=== PATIENT | male | born 1945 | race Caucasian/White ===

== ENCOUNTER 2016-07-31 13:34 | Observation (INO) | payer OTHER, MEDICARE ==
--- NOTE | 2016-07-31 13:51 | CPEKG ---
Heart Rate: 81 RR Interval: 741 P-R Interval: 164 QRSD Interval: 76 QT Interval: 396 QTC Interval: 460 P Lyburn: 60 QRS [place]burn: 21 T Wave Lyburn: 43 EKG Severity - OTHERWISE NORMAL ECG - EKG Impression: SINUS RHYTHM EKG Impression: LOW VOLTAGE IN FRONTAL LEADS Electronically Signed By: David Ku 31-Jul-2016 14:09:06
--- NOTE | 2016-07-31 14:05 | EDPHY ---
H & P Time Seen by Provider: 07/31/16 13:40 HPI/ROS: CHIEF COMPLAINT: Syncope HISTORY OF PRESENT ILLNESS: Patient is an alcoholic arrives with his caregiver. He did have alcohol today. He is scheduled for an appointment with [facility] tomorrow to evaluate his liver function. Today he was sitting on a chair in the shower when he had syncope and passed out and was completely unresponsive for 3 minutes and then subsequently minimally responsive for another 5. He was brought in by EMS. He denies chest pain or shortness of breath. No headache or head injury. REVIEW OF SYSTEMS: Eye: no change in vision ENT: no sore throat Cardiac: No chest pain. Pulmonary: no cough or SOB Abdomen: no vomiting, diarrhea, abdominal pain Musculoskeletal: no back pain Skin: Patient is had a diffuse body rash for at least the past several weeks which is diffuse Neuro: no headache Constitutional: no fever : no urinary symptoms A comprehensive 10 point review of systems is otherwise negative aside from elements mentioned in the history of present illness. PAST MEDICAL HISTORY: Alcoholism, foot fracture 2 months ago left-sided Social history: Alcohol today, arrives with caregiver. General Appearance: Alert and conversant, cooperative. Eyes: No scleral icterus. ENT, Mouth: No tongue laceration or abrasion. Respiratory: Normal respiratory effort, breath sounds equal, lungs are clear to auscultation. Cardiovascular: Regular rate and rhythm. Gastrointestinal: Abdomen is soft and non tender. Neurological: Alert and oriented x3. Normally conversant. Face symmetric, normal movement and sensation in all extremities. No asterixis or tremor. Skin: Patient is diffuse skin rash which is erythematous occasional scaling and worse on his back. Dark red in places. Musculoskeletal: No peripheral edema and no joint swelling. Still has pain to palpation of the left foot Psychiatric: Not agitated. Emergency Department course/MDM: Plan for EKG and labs to include troponin. By history unlikely to be seizure. 1455: Results discussed; recommend admission for cardiac monitoring with prolonged duration of syncope today, total duration around 8 minutes per report. Smoking Status: Former smoker Constitutional: Initial Vital Signs Temperature (C) 36.7 C 07/31/16 13:34 Heart Rate 78 07/31/16 13:34 Respiratory Rate 16 07/31/16 13:34 Blood Pressure 110/80 07/31/16 13:34 O2 Sat (%) 96 07/31/16 13:34 O2 Delivery Mode Room Air Allergies/Adverse Reactions: Penicillins Allergy (Verified 07/31/16 13:52) Medical Decision Making - Diagnostics EKG Interpretation: 12-lead EKG interpreted by me; official reading is in trace master. My interpretation is sinus rhythm with low frontal lead voltage. Rate 81. Imaging Results: Imaging Impressions Chest X-Ray 07/31/16 13:47 Impression: 1. No active cardiopulmonary disease seen. 2. Moderate hiatal hernia. 3. Old left rib fractures. Chest x-ray personally interpreted shows hiatal hernia but no other pulmonary abnormalities. Differential Diagnosis: Differential diagnosis considered for syncope including but not limited to vasovagal syncope, arrhythmia, dehydration, and blood loss. Consult/Admit Bed Type: [place] [id number] - Data Points Laboratory Results: Laboratory Results 07/31/16 13:30 07/31/16 13:30 07/31/16 07/31/16 07/31/16 13:30 13:30 13:30 WBC RBC Hgb Hct MCV MCH MCHC RDW Plt Count MPV Neut % (Auto) Lymph % (Auto) [place] % (Auto) Eos % (Auto) Baso % (Auto) Nucleat RBC Rel Count Absolute Neuts (auto) Absolute Lymphs (auto) Absolute Monos (auto) Absolute Eos (auto) Absolute Basos (auto) Absolute Nucleated RBC Immature Gran % Immature Gran # Platelet Estimate Oval Macrocytes Smear Review By PT 14.0 SEC SEC (12.0-15.0) INR 1.09 (0.83-1.16) APTT 30.9 SEC SEC (23.0-38.0) Sodium 138 mEq/L mEq/L (134-144) Potassium 4.3 mEq/L mEq/L (3.5-5.2) Chloride 100 mEq/L mEq/L (97-110) Carbon Dioxide 22 mEq/l mEq/l (22-31) Anion Gap 16 mEq/L mEq/L (8-16) BUN 9 mg/dL mg/dL (7-23) Creatinine 0.8 mg/dL mg/dL (0.7-1.3) Estimated GFR > 60 Glucose 142 mg/dL H mg/dL (70-100) Calcium 8.3 mg/dL L mg/dL (8.5-10.4) Total Bilirubin 0.7 mg/dL mg/dL (0.1-1.4) Conjugated Bilirubin 0.5 mg/dL mg/dL (0.0-0.5) Unconjugated Bilirubin 0.2 mg/dL mg/dL (0.0-1.1) AST 269 IU/L H IU/L (17-59) ALT 123 IU/L H IU/L (21-72) Alkaline Phosphatase 53 IU/L IU/L (38-126) Troponin I < 0.012 ng/mL ng/mL (0-0.034) Total Protein 6.3 g/dL g/dL (6.3-8.2) Albumin 3.6 g/dL g/dL (3.5-5.0) Ethyl Alcohol 198 mg/dL H mg/dL (0-10) 07/31/16 13:30 WBC 4.76 10^3/uL 10^3/uL (3.80-9.50) RBC 3.56 10^6/uL L 10^6/uL (4.40-6.38) Hgb 14.4 g/dL g/dL (13.7-17.5) Hct 42.1 % % (40.0-51.0) MCV 118.3 fL H fL (81.5-99.8) MCH 40.4 pg H pg (27.9-34.1) MCHC 34.2 g/dL g/dL (32.4-36.7) RDW 14.0 % % (11.5-15.2) Plt Count 135 10^3/uL L 10^3/uL (150-400) MPV 9.7 fL fL (8.7-11.7) Neut % (Auto) 44.5 % % (39.3-74.2) Lymph % (Auto) 40.3 % % (15.0-45.0) [place] % (Auto) 12.0 % % (4.5-13.0) Eos % (Auto) 1.1 % % (0.6-7.6) Baso % (Auto) 1.5 % % (0.3-1.7) Nucleat RBC Rel Count 0.4 % H % (0.0-0.2) Absolute Neuts (auto) 2.12 10^3/uL 10^3/uL (1.70-6.50) Absolute Lymphs (auto) 1.92 10^3/uL 10^3/uL (1.00-3.00) Absolute Monos (auto) 0.57 10^3/uL 10^3/uL (0.30-0.80) Absolute Eos (auto) 0.05 10^3/uL 10^3/uL (0.03-0.40) Absolute Basos (auto) 0.07 10^3/uL 10^3/uL (0.02-0.10) Absolute Nucleated RBC 0.02 10^3/uL H 10^3/uL (0-0.01) Immature Gran % 0.6 % % (0.0-1.1) Immature Gran # 0.03 10^3/uL 10^3/uL (0.00-0.10) Platelet Estimate DECREASED L (ADEQ) Oval Macrocytes 3+ H Smear Review By Pending PT INR APTT Sodium Potassium Chloride Carbon Dioxide Anion Gap BUN Creatinine Estimated GFR Glucose Calcium Total Bilirubin Conjugated Bilirubin Unconjugated Bilirubin AST ALT Alkaline Phosphatase Troponin I Total Protein Albumin Ethyl Alcohol Departure - Dep[facility]ure [facility] Clinical Impression: Syncope Qualifiers: Syncope type: unspecified Qualified Code(s): R55 - Syncope and collapse Condition: Good
[2016-07-31 14:26] LABS: % IMMATURE GRANULYOCYTES 0.6 % (0.0-1.1); ABSOLUTE IMMATURE GRANULOCYTES 0.03 10^3/uL (0.00-0.10); ABSOLUTE NRBC COUNT 0.02 10^3/uL (0-0.01); ADD DIFF? NO; ADD MORPH? YES; ADD SCAN? NO; ATYPICAL LYMPHOCYTE FLAG 20 (0-99); FRAGMENT RBC FLAG 0 (0-99); HEMATOCRIT 42.1 % (40.0-51.0); HEMOGLOBIN 14.4 g/dL (13.7-17.5); LEFT SHIFT FLG 0 (0-99); LIPEMIA HEMOLYSIS FLAG 90 (0-99); MEAN CELL HEMOGLOBIN 40.4 pg (27.9-34.1); MEAN CELL HEMOGLOBIN CONCENTR. 34.2 g/dL (32.4-36.7); MEAN PLATELET VOLUME 9.7 fL (8.7-11.7); NRBC-AUTO% 0.4 % (0.0-0.2); PLATELET CLUMPS FLAG 0 (0-99); PLATELET COUNT 135 10^3/uL (150-400); RED BLOOD CELL COUNT 3.56 10^6/uL (4.40-6.38)
[2016-07-31 14:28] LABS: APTT 30.9 SEC (23.0-38.0); INR 1.09 (0.83-1.16)
[2016-07-31 14:29] LABS: MEAN CELL VOLUME 118.3 fL (81.5-99.8)
[2016-07-31 14:43] LABS: ALANINE AMINOTRANSFERASE 123 IU/L (21-72); ALBUMIN 3.6 g/dL (3.5-5.0); ALKALINE PHOSPHATASE 53 IU/L (38-126); ANION GAP 16 mEq/L (8-16); ASPARTATE AMINOTRANSFERASE 269 IU/L (17-59); BILIRUBIN,TOTAL 0.7 mg/dL (0.1-1.4); BILIRUBIN-CONJUGATED 0.5 mg/dL (0.0-0.5); BILIRUBIN-UNCONJUGATED 0.2 mg/dL (0.0-1.1); CALCIUM 8.3 mg/dL (8.5-10.4); CARBON DIOXIDE 22 mEq/l (22-31); CHLORIDE 100 mEq/L (97-110); CREATININE 0.8 mg/dL (0.7-1.3); GLOMERULAR FILTRATION RATE > 60; GLUCOSE 142 mg/dL (70-100); POTASSIUM 4.3 mEq/L (3.5-5.2); SODIUM 138 mEq/L (134-144); TOTAL PROTEIN 6.3 g/dL (6.3-8.2)
[2016-07-31 14:54] LABS: TROPONIN I < 0.012 ng/mL (0-0.034)
[2016-07-31 15:15] LABS: MACROCYTES 3+; PLATELET ESTIMATE DECREASED (ADEQ)
[2016-07-31 15:36] LABS: ETHANOL SERUM 198 mg/dL (0-10)
[2016-07-31] MEDS ORDERED: LOPERAMIDE HCL 2 MG CAP PO PRN (18:02)
[2016-07-31] MEDS ORDERED: ACETAMINOPHEN 325 MG TAB PO PRN (18:03)
[2016-07-31] MEDS ORDERED: ONDANSETRON DISINTEGRATING 4 MG TAB PO PRN (18:03)
[2016-07-31] MEDS ORDERED: ONDANSETRON 4 MG/2 ML VIAL IVP PRN (18:03)
[2016-07-31] MEDS ORDERED: NS 1,000 ML IV SCH (18:45)
[2016-07-31] MEDS ORDERED: WHITE WINE 120 ML BOTTLE PO PRN (18:48)
--- NOTE | 2016-07-31 19:39 | GHP ---
[f rep st] HISTORY AND PHYSICAL DATE OF ADMISSION: 07/31/2016 CHIEF COMPLAINT: Syncope. HISTORY OF PRESENT ILLNESS: The patient is a 71-year-old male with a history of alcohol abuse and a foot fracture recently, who was brought to [facility] by his niece after he passed out this morning. He was sitting on a chair in the shower this morning being bathed by his occupational therapist and she called out to his niece, Emma, when he passed out 3 minutes. He was slumped over and nonresponsive. He was groggy when awoke and pulse "thready" per niece. He does not recall event and denies prodromal symptoms, including chest pain, shortness of breath, nausea, vomiting, dizziness or clamminess. He has intermittent diarrhea that has been chronic for several months. Denies dysuria. He was scheduled for appt at [facility] tomorrow. REVIEW OF SYSTEMS: I completed a 10-point review of systems, negative, except as noted in the HPI. PAST MEDICAL HISTORY: Alcohol abuse, recent foot fracture 2 months ago. PAST SURGICAL HISTORY: Tonsillectomy. SOCIAL HISTORY: He lives in [place]. His niece is his caregiver. He quit cigarettes 7 years ago. Drinks 6-7 glasses of wine a day. Last drink was this morning. FAMILY HISTORY: Father at age 84. Mother was healthy, lived greater than 100. MEDICATIONS: P.r.n. Imodium. ALLERGIES: No known drug allergies. PHYSICAL EXAMINATION: VITAL SIGNS: Temperature 36.9, blood pressure 116/71, heart rate 87, respirations 16, 98% on room air. GENERAL: The patient is sleeping in bed, in no acute distress. HEENT: PERRLA. EOMI. Small ulcerations on tongue. CV: Is regular rate and rhythm. No murmurs, gallops, or rubs. LUNGS: Clear to auscultation bilaterally. ABDOMEN: Soft, nontender , nondistended. Positive bowel sounds. : No [place]. No suprapubic tenderness. MUSCULOSKELETAL: 5/5 upper and lower extremity strength. NEURO: 2 through 12 intact. Mild hand tremor. No tongue fasciculations. SKIN: Diffuse macular rash over trunk and extremities. Some scaling lesions more specifically over the back. No evidence of purulence or cellulitis. LABS: WBC 4, hemoglobin 14, hematocrit 42, platelets 135. INR is 1.0, PT is 14. Sodium 138, potassium 4.3, chloride 100, carbon dioxide 22, creatinine 0.8 , glucose 142, calcium 8.3. AST 269, ALT 123. Troponin less than 0.012. Albumin is 3.6. BAL is 198. IMAGING: EKG is personally reviewed by me. Low voltage in anterior leads. No ST elevation or depression. Chest x-ray is personally reviewed by me. No effusion or opacity. Chronic rib fractures. ASSESSMENT AND PLAN: 1. Syncope. Differential includes dehydration, ACS, intoxication. Initial EKG and troponin are negative for ischemia. No evidence of arrhythmia. I will repeat both troponin and EKG. Query if alcohol contributed. The patient denied any prodromal symptoms. Will monitor on telemetry overnight. Check an echocardiogram. 2. Alcohol abuse. drinks at least 6 glasses of wine daily. I counseled him on cessation. CIWA. 3. Thrombocytopenia, mild, likely secondary to chronic alcohol abuse. 4. Transaminitis. This is likely secondary to alcohol. 5. Diffuse skin rash: present for several months. Does not appear infectious. Query cryoglobulinemia. Will check hep serologies. Trial steroid cream. 6. Diet regular. 7. Deep venous thrombosis prophylaxis: Lovenox. DISPOSITION: The patient warrants observation admission given syncopal episode and warranting telemetry and echocardiogram. /[id number]/MODL MTDD
[2016-07-31] MEDS ORDERED: LORazepam 1 MG TAB PO PRN (22:01)
[2016-07-31] MEDS ORDERED: LORazepam 2 MG/ML INJ IVP PRN (22:01)
[2016-07-31] MEDS: HYDROCORTISONE 1% CREAM TP SCH (22:48)
[2016-08-01 03:35] VITALS: O2SAT 95
[2016-08-01 05:32] LABS: ADD DIFF? YES; ADD MORPH? NO; ADD SCAN? NO; ATYPICAL LYMPHOCYTE FLAG 0 (0-99); FRAGMENT RBC FLAG 0 (0-99); HEMATOCRIT 32.9 % (40.0-51.0); HEMOGLOBIN 11.5 g/dL (13.7-17.5); LEFT SHIFT FLG 0 (0-99); LIPEMIA HEMOLYSIS FLAG 90 (0-99); MEAN CELL HEMOGLOBIN 40.1 pg (27.9-34.1); MEAN CELL VOLUME 114.6 fL (81.5-99.8); MEAN PLATELET VOLUME 9.4 fL (8.7-11.7); PLATELET CLUMPS FLAG 10 (0-99); PLATELET COUNT 95 10^3/uL (150-400); RED BLOOD CELL COUNT 2.87 10^6/uL (4.40-6.38); RED CELL DISTRIBUTION WIDTH 13.7 % (11.5-15.2)
[2016-08-01 05:52] LABS: ALANINE AMINOTRANSFERASE 93 IU/L (21-72); ALBUMIN 2.7 g/dL (3.5-5.0); ALKALINE PHOSPHATASE 47 IU/L (38-126); ANION GAP 6 mEq/L (8-16); ASPARTATE AMINOTRANSFERASE 147 IU/L (17-59); BILIRUBIN,TOTAL 0.9 mg/dL (0.1-1.4); CALCIUM 8.2 mg/dL (8.5-10.4); CARBON DIOXIDE 26 mEq/l (22-31); CHLORIDE 101 mEq/L (97-110); CREATININE 0.7 mg/dL (0.7-1.3); GLOMERULAR FILTRATION RATE > 60; GLUCOSE 88 mg/dL (70-100); MAGNESIUM 1.7 mg/dL (1.6-2.3); POTASSIUM 4.5 mEq/L (3.5-5.2); SODIUM 133 mEq/L (134-144); TOTAL PROTEIN 4.9 g/dL (6.3-8.2)
[2016-08-01 06:22] LABS: PLATELET ESTIMATE DECREASED (ADEQ)
[2016-08-01 06:27] LABS: HYPOCHROMIA 2+; MACROCYTES 3+
[2016-08-01 08:00] VITALS: BP 131/88; PULSE 73; RESP 18; TEMP 98.8
[2016-08-01] MEDS ORDERED: ENOXAPARIN 40 MG/0.4 ML SYR SC SCH (09:00)
[2016-08-01] MEDS ORDERED: THIAMINE HCL 100 MG TAB PO SCH (09:00)
[2016-08-01] MEDS: HYDROCORTISONE 1% CREAM TP SCH (09:04)
--- NOTE | 2016-08-01 09:38 | ECHO ---
[id number] + + [address] : : [place] [address] : : [phone] + Adult Echocardiographic Report + --+ :Name: MELODY CASTILLO LStudy Date: 08/01/2016 07:34 AM : : Hospital Admission Number: [id number] Location: 3 61: :: 1945 Gender: Male Height: 171 in : :Age: 71 yrs Race: WH : :Reason For Study: Syncope/eval for valve abnormality : + --+ MMode/2D Measurements \T\ Calculations IVSd: 0.86 cm LVIDd: 4.5 cm FS: 30.5 % Ao root diam: LVPWd: 1.2 cm LVIDs: 3.1 cm EDV(Teich): 3.7 cm 90.1 ml LA dimension: ESV(Teich): 3.3 cm 37.7 ml EF(Teich): 58.2 % LVLd ap4: 7.8 cm SV(MOD-sp4): EDV(MOD-sp4): 45.0 ml 64.0 ml LVLs ap4: 7.0 cm ESV(MOD-sp4): 19.0 ml EF(MOD-sp4): 70.3 % Normal Measurement Values: + + :LVIDd (3.5-5.7cm) IVSd (0.6-1.1cm) LVPWd (0.6-1.1cm) Aortic Root (2.0-3.7cm)Left Atrium (1.5-4.0cm): :LV Vol(d) (76-115ml) LV Vol(s) (29-48ml) Ejec Fraction (50-65%)PV Rashi (0.6- 1.2m/s) TV Rashi (0.4-1.0m/s) : :MV E Rashi (0.8-1.0m/s)MV A Rashi (0.3-1.0m/s)LVOT Rashi (0.7-1.2m/s) Asc Ao Rashi ( 0.9-1.8m/s) : + + Doppler Measurements \T\ Calculations MV E max rashi: 108.1 cm/sec Ao V2 max: 95.0 cm/sec MV A max rashi: 81.4 cm/sec Ao max P.6 mmHg MV E/A: 1.3 Left Ventricle The left ventricle is normal in size. There is normal left ventricular wall thickness. Left ventricular systolic function is normal. Ejection Fraction = 65-70%. Moderate diastolic dysfunction with elevated LV filling pressures. No regional wall motion abnormalities noted. Right Ventricle The right ventricle is normal in size and function. Atria The left atrial size is normal. Right atrial size is normal. The interatrial septum is intact with no evidence for an atrial septal defect. Mitral Valve The mitral valve is normal in structure and function. There is no evidence of mitral valve prolapse. There is no mitral valve stenosis. There is trace mitral regurgitation. Tricuspid Valve Normal tricuspid valve. There is trace tricuspid regurgitation. Aortic Valve The aortic valve is trileaflet. The aortic valve opens well. There is no aortic stenosis. There is no aortic insufficiency. Pulmonic Valve The pulmonic valve is normal in structure and function. Mild pulmonic valvular regurgitation. Great Vessels The aortic root is normal size. Pericardium/Pleural There is no pericardial effusion. There is a fat pad seen. Conclusion A complete two-dimensional transthoracic echocardiogram was performed (2D, M-mode, Doppler and color flow Doppler). Left ventricular systolic function is normal. Ejection Fraction = 65-70%. There is trace mitral regurgitation. There is trace tricuspid regurgitation. Mild pulmonic valvular regurgitation. There is a fat pad seen. No prior echo Final Reading Physician: Dr Marycruz Hanna electronically signed on 08/01/2016 09:37 AM Ordering Physician: Colleen Pelayo Performed By: Marcelina Garcia RDCS
--- NOTE | 2016-08-01 15:56 | GDS ---
[f rep st] DISCHARGE SUMMARY DISCHARGE DIAGNOSES: 1. Syncope, likely due to alcohol intoxication, without evidence for arrhythmia. 2. Alcohol abuse. 3. Thrombocytopenia. 4. Alcoholic hepatitis. 5. Chronic diarrhea. 6. Bilateral thigh rash. CONSULTANTS: None. HOSPITAL COURSE AND STAY BY PROBLEM: Syncope: The patient was monitored on telemetry on 3 , w here he was not noted to have any arrhythmias. On the day of discharge, he tells me he feels better and has not had any further syncopal episodes. Prior to discharge, I discussed the case with CATRACHO Casey, from [facility]. Cardiology plans to get the patient set up for an outpatient event monitor. The patient presented with a blood alcohol level of 198, which could have very possi tj contributed to his syncopal episode. PHYSICAL EXAM: VITAL SIGNS: On day of discharge, blood pressure 131/88, pulse 73, respiratory rate 18, O2 saturation 95% on room air. Temperature afebrile. GENERAL: No acute distress. HEART: S1 , S2. LUNGS: Clear. ABDOMEN: Soft. EXTREMITIES: No edema. PERTINENT LABS AND STUDIES: Echocardiogram done 07/31/2016: Ejection fraction was 65% to 70% with no significant valvular disease. Refer to report for details. DISCHARGE MEDICATIONS: Please refer to discharge medication reconciliation in [facility] for details. DISCHARGE INSTRUCTIONS: The patient will be discharged from the hospital. He was given a prescript ion for hydrocortisone cream to see if this helps with his rash. He plans to follow up with a derma tologist as well as with a funeral location manager due to his diarrhea and rash. Hepatitis B serologies are currently pending, which will need to be followed up. Once again, the patient has also been ord ered to have outpatient event monitor. /[id number]/MODL
[2016-08-02 13:12] LABS: HEPATITIS Bs Ab QUANT 911 mIU/mL
== END 2016-08-01 10:26 | disposition home or self-care (01) ==
LOC: EDUNIT# → EDBD → F3N 16:51
PROVIDERS: ADMIT Internal Medicine; ATTEND Family Medicine
DX: R55 Syncope and collapse (principal); F10.220 Alcohol dependence with intoxication, uncomplicated; K70.10 Alcoholic hepatitis without ascites; K44.9 Diaphragmatic hernia without obstruction or gangrene; K52.9 Noninfective gastroenteritis and colitis, unspecified; D69.6 Thrombocytopenia, unspecified; R21 Rash and other nonspecific skin eruption; Y90.9 Presence of alcohol in blood, level not specified; Z87.81 Personal history of (healed) traumatic fracture; Z87.891 Personal history of nicotine dependence
CPT/HCPCS: 71020; 93005; 93306; 99285; G0378; J2060; G0472; G0480

== ENCOUNTER 2017-02-16 13:04 | Inpatient (IN) | payer OTHER, MEDICARE ==
--- NOTE | 2017-02-16 13:40 | EDPHY ---
H & P Time Seen by Provider: 02/16/17 13:21 HPI/ROS: CHIEF COMPLAINT: Generalized weakness HISTORY OF PRESENT ILLNESS: 71-year-old man is brought in by his knees Emma. Apparently he still lives independently continues to drink lots of white wine. He has been getting weaker and having decreased oral intake and he went to his primary care physician's office this Friday and they agreed that he would be admitted for 3 days and then placed in a long-term or rehab facility. He presents today because of this plan. Generally he is weak and has difficulty walking or standing. Not focal and not associated with headache or specific extremity deficit. Associated with at least 2-3 weeks of diarrhea which is not melena or bloody. Weakness is not better worse with anything. It is also associated with decreased oral intake and continued alcohol ingestion. REVIEW OF SYSTEMS: Eye: no change in vision ENT: no sore throat Cardiac: no chest pain or syncope Pulmonary: no cough or SOB Abdomen: No abdominal pain or vomiting Musculoskeletal: no back pain Skin: Sacral and perirectal rash Neuro: no headache Constitutional: no fever : no urinary symptoms A comprehensive 10 point review of systems is otherwise negative aside from elements mentioned in the history of present illness. PAST MEDICAL HISTORY: Includes alcoholism, left foot fracture which was refractured 3 months ago, tonsillectomy Social history: Lives independently, here with his niece, recent alcohol. His niece Emma is able to give substantial extra history. General Appearance: Alert and conversant, cooperative. Eyes: No scleral icterus. ENT, Mouth: Slightly dry mucous membranes Respiratory: Normal respiratory effort, breath sounds equal, lungs are clear to auscultation. Cardiovascular: Regular rate and rhythm. Tachycardic Gastrointestinal: Abdomen is soft and non tender. Neurological: Alert and oriented x3. Normally conversant. Moves all 4 extremities but just generally weak. Can not walk or stand without assistance. NO asterixis. Skin: Beginnings of a sacral decubitus but no cellulitis. Musculoskeletal: No peripheral edema and no joint swelling. Psychiatric: Not agitated. Emergency Department course/MDM: Patient presents with blood pressure 78/62 and heart rate 125. I think this is more likely to be from volume depletion then sepsis or systemic infection. Plan for EKG, labs, stool testing, D-dimer given his recent prolonged immobilization in a boot from his left foot fracture this past spring. 1427: D-dimer noted slightly elevated but repeat blood pressure 120/76 and heart rate 94. No chest pain or shortness of breath. No calf tenderness. I think that dehydration is much more likely to be a cause for the patient's abnormal vital signs than thromboembolism. Admission for hydration, further evaluation. Specifically I do not suspect acute infection or sepsis as the cause for the patient's symptoms. 1436: Rashi will admit. Smoking Status: Former smoker Constitutional: Initial Vital Signs Temperature (C) 36.5 C 02/16/17 13:14 Heart Rate 125 H 02/16/17 13:14 Respiratory Rate 16 02/16/17 13:14 Blood Pressure 78/62 L 02/16/17 13:14 O2 Sat (%) 95 02/16/17 13:14 O2 Delivery Mode Room Air Allergies/Adverse Reactions: Penicillins Allergy (Verified 07/31/16 13:52) Home Medications: Medication Instructions Recorded Loperamide HCl [Imodium 2 mg (*)] 2 mg PO DAILY PRN 02/16/17 Naproxen Sodium [Aleve 220 MG (*)] 440 mg PO DAILY PRN 02/16/17 Nystatin [Mycostatin Cream (RX)] 1 siddharth TP PRN PRN 02/16/17 Medical Decision Making - Diagnostics EKG Interpretation: 12-lead EKG interpreted by me; official reading is in trace master. My interpretation is sinus rhythm rate 90, low voltage, no ischemic changes. Differential Diagnosis: Differential for weakness considered including but not limited to dehydration, dysrhythmia, metabolic abnormality, malnutrition, thromboembolism. - Data Points Laboratory Results: Laboratory Results 02/16/17 13:30 02/16/17 13:30 02/16/17 02/16/17 02/16/17 13:30 13:30 13:30 WBC 7.74 10^3/uL 10^3/uL (3.80-9.50) RBC 3.04 10^6/uL L 10^6/uL (4.40-6.38) Hgb 12.3 g/dL L g/dL (13.7-17.5) Hct 34.8 % L % (40.0-51.0) MCV 114.5 fL H fL (81.5-99.8) MCH 40.5 pg H pg (27.9-34.1) MCHC 35.3 g/dL g/dL (32.4-36.7) RDW 12.9 % % (11.5-15.2) Plt Count 185 10^3/uL 10^3/uL (150-400) MPV 8.9 fL fL (8.7-11.7) Neut % (Auto) 71.4 % % (39.3-74.2) Lymph % (Auto) 15.5 % % (15.0-45.0) [place] % (Auto) 11.9 % % (4.5-13.0) Eos % (Auto) 0.4 % L % (0.6-7.6) Baso % (Auto) 0.5 % % (0.3-1.7) Nucleat RBC Rel Count 0.0 % % (0.0-0.2) Absolute Neuts (auto) 5.53 10^3/uL 10^3/uL (1.70-6.50) Absolute Lymphs (auto) 1.20 10^3/uL 10^3/uL (1.00-3.00) Absolute Monos (auto) 0.92 10^3/uL H 10^3/uL (0.30-0.80) Absolute Eos (auto) 0.03 10^3/uL 10^3/uL (0.03-0.40) Absolute Basos (auto) 0.04 10^3/uL 10^3/uL (0.02-0.10) Absolute Nucleated RBC 0.00 10^3/uL 10^3/uL (0-0.01) Immature Gran % 0.3 % % (0.0-1.1) Immature Gran # 0.02 10^3/uL 10^3/uL (0.00-0.10) D-Dimer 0.93 ug/mLFEU H ug/mLFEU (0.00-0.50) Sodium 133 mEq/L L mEq/L (134-144) Potassium 3.8 mEq/L mEq/L (3.5-5.2) Chloride 103 mEq/L mEq/L (97-110) Carbon Dioxide 16 mEq/l L mEq/l (22-31) Anion Gap 14 mEq/L mEq/L (8-16) BUN 11 mg/dL mg/dL (7-23) Creatinine 0.8 mg/dL mg/dL (0.7-1.3) Estimated GFR > 60 Glucose 100 mg/dL mg/dL (70-100) Calcium 8.3 mg/dL L mg/dL (8.5-10.4) Total Bilirubin 0.5 mg/dL mg/dL (0.1-1.4) Conjugated Bilirubin 0.1 mg/dL mg/dL (0.0-0.5) Unconjugated Bilirubin 0.4 mg/dL mg/dL (0.0-1.1) AST 50 IU/L IU/L (17-59) ALT 36 IU/L IU/L (21-72) Alkaline Phosphatase 80 IU/L IU/L (38-126) Total Protein 5.3 g/dL L g/dL (6.3-8.2) Albumin 2.7 g/dL L g/dL (3.5-5.0) Ethyl Alcohol 17 mg/dL H mg/dL (0-10) Departure - Departure Disposition: [facility] Inpatient Acute Clinical Impression: Weakness, Dehydration Condition: Fair
[2017-02-16 13:44] LABS: % IMMATURE GRANULYOCYTES 0.3 % (0.0-1.1); ABSOLUTE IMMATURE GRANULOCYTES 0.02 10^3/uL (0.00-0.10); ADD DIFF? NO; ADD MORPH? NO; ADD SCAN? NO; ATYPICAL LYMPHOCYTE FLAG 10 (0-99); FRAGMENT RBC FLAG 0 (0-99); HEMATOCRIT 34.8 % (40.0-51.0); HEMOGLOBIN 12.3 g/dL (13.7-17.5); LEFT SHIFT FLG 0 (0-99); LIPEMIA HEMOLYSIS FLAG 90 (0-99); MEAN CELL HEMOGLOBIN 40.5 pg (27.9-34.1); MEAN CELL HEMOGLOBIN CONCENTR. 35.3 g/dL (32.4-36.7); MEAN CELL VOLUME 114.5 fL (81.5-99.8); MEAN PLATELET VOLUME 8.9 fL (8.7-11.7); PLATELET CLUMPS FLAG 0 (0-99); PLATELET COUNT 185 10^3/uL (150-400); RED BLOOD CELL COUNT 3.04 10^6/uL (4.40-6.38); RED CELL DISTRIBUTION WIDTH 12.9 % (11.5-15.2)
[2017-02-16 14:12] LABS: ALANINE AMINOTRANSFERASE 36 IU/L (21-72); ALBUMIN 2.7 g/dL (3.5-5.0); ALKALINE PHOSPHATASE 80 IU/L (38-126); ANION GAP 14 mEq/L (8-16); ASPARTATE AMINOTRANSFERASE 50 IU/L (17-59); BILIRUBIN,TOTAL 0.5 mg/dL (0.1-1.4); BILIRUBIN-CONJUGATED 0.1 mg/dL (0.0-0.5); BILIRUBIN-UNCONJUGATED 0.4 mg/dL (0.0-1.1); CALCIUM 8.3 mg/dL (8.5-10.4); CARBON DIOXIDE 16 mEq/l (22-31); CHLORIDE 103 mEq/L (97-110); CREATININE 0.8 mg/dL (0.7-1.3); ETHANOL SERUM 17 mg/dL (0-10); GLOMERULAR FILTRATION RATE > 60; GLUCOSE 100 mg/dL (70-100); POTASSIUM 3.8 mEq/L (3.5-5.2); SODIUM 133 mEq/L (134-144); TOTAL PROTEIN 5.3 g/dL (6.3-8.2)
--- NOTE | 2017-02-16 14:24 | CPEKG ---
Heart Rate: 89 RR Interval: 674 P-R Interval: 160 QRSD Interval: 78 QT Interval: 380 QTC Interval: 463 P [place]: 50 QRS [place]: 16 T Wave [place]: 34 EKG Severity - OTHERWISE NORMAL ECG - EKG Impression: SINUS RHYTHM EKG Impression: LOW VOLTAGE IN FRONTAL LEADS Electronically Signed By: David Ku 16-Feb-2017 14:28:19
--- NOTE | 2017-02-16 14:36 | ASMTCMCOM ---
CM Note CM Note Notes: Patient prefers to go by "Watson." Patient admitted for weakness, diarrhea x3 weeks, and overall decreased ability to care for himself including transferring into wheelchair or perform other ADLs. Patient brought into the ED by his niece, Emma, who is at bedside. Patient saw his PCP Dr. Addie Zamora this last week. Patient lives alone in a 1st floor apartment (has one step up to his front door) and has been using a wheelchair since he initially fractured his left foot last May 2016 and re-fractured it around October 2016. Patient also wears a walking boot on his left foot. Per Emma, patient normally wears depends and is unable to clean or bathe himself. Patient is an alcoholic and per Emma was drinking up to 60-70fl oz of white wine daily until about 3 weeks ago when he couldn't get it himself, so since then he has been drinking about 35 fl oz of white wine daily. Patient was admitted last 07/31/16 for syncopal episode and was discharged with PT/OT homecare services through [facility]. Pt also has worn a Holter monitor but never followed up with a marketing program manager. Patient also has been seen by a doctor at [facility] but can't remember the doctor's name. Exact DC needs unknown at this time, although per patient and Emma they would be open to the idea of a short term rehab placement in order for patient to regain strength. CM to follow. Date Signed: 02/16/2017 02:36 PM Electronically Signed By:Isabell Castillo RN
[2017-02-16] MEDS ORDERED: PROMETHAZINE HCL 25 MG/ML INJ IVP PRN (14:38)
[2017-02-16] MEDS ORDERED: ONDANSETRON DISINTEGRATING 4 MG TAB PO PRN (14:38)
[2017-02-16] MEDS ORDERED: ONDANSETRON 4 MG/2 ML VIAL IVP PRN (14:38)
[2017-02-16] MEDS ORDERED: PROMETHAZINE HCL 25 MG TAB PO PRN (14:38)
[2017-02-16] MEDS ORDERED: LORazepam 1 MG TAB PO PRN (14:40)
[2017-02-16] MEDS ORDERED: LORazepam 2 MG/ML INJ IVP PRN (14:40)
[2017-02-16] MEDS ORDERED: NYSTATIN 15 GM CR TUBE TP PRN (14:52)
[2017-02-16] MEDS ORDERED: NAPROXEN SODIUM 220 MG TAB PO PRN (14:52)
[2017-02-16] MEDS ORDERED: LOPERAMIDE HCL 2 MG CAP PO PRN (14:52)
--- NOTE | 2017-02-16 15:28 | PDGENHP ---
History and Physical - Chief Complaint Acute paresis - History of Present Illness PCP: Dr. Addie Zamora HPI: 71-year-old male presenting with acute paresis characterized as bilateral lower extremity weakness rendering him unable to get out of bed or chair, with onset of symptoms approximately 3-4 weeks ago and duration persistent and worsening thereafter. This has been associated with loose, watery, pink colored bowel movements which have occurred on a daily basis during the interval as well. The patient's niece who is his primary farm technician reports that he is unable to mobilize himself from bed to wheelchair, and prior to the onset of the symptoms, the patient had been performing transfers from bed to wheelchair and then back fairly independently. Patient otherwise denies any upper extremity paresis, denies any infectious symptoms, and denies any back pain or recent back trauma. He does report urinary incontinence which has been present for at least 1 year. The symptoms occurred in the context of the patient being moved from his home in [place] to an apartment next door to his niece, so she is able to better care for him. That move occurred in May of 2016. The niece reports that she checks in on him on a daily basis, provide him with 1 full meal daily, the patient rarely eats any significant amount of the solid food that she brings him , preferring to drink mostly wine and Ensure as his only caloric intake. She has not noted any falls in his home, but she has noted a sacral pressure injury. She brought him to his primary care provider's office this past Friday, and Dr. Zamora recommended nursing home facility placement. History Information - Allergies/Home Medication List Allergies/Adverse Reactions: Penicillins Allergy (Verified 07/31/16 13:52) Home Medications: Loperamide HCl [Imodium 2 mg (*)] 2 mg PO DAILY PRN 02/16/17 [Last Taken Unknown ] Naproxen Sodium [Aleve 220 MG (*)] 440 mg PO DAILY PRN 02/16/17 [Last Taken Unknown] Nystatin [Mycostatin Cream (RX)] 1 siddharth TP PRN PRN 02/16/17 [Last Taken 02/16/17] I have personally reviewed and updated: family history, medical history, social history, surgical history - Past Medical History Additional medical history: Alcoholism. Foot fracture. Sacral decubitus ulcer. Chronic hyponatremia with baseline serum sodium level between 130 and 133 - Surgical History Additional surgical history: Tonsillectomy. Colonoscopy approximately 3-4 years ago, told that he needed 5 year follow-up - Family History Additional family history: Family history of neuro degenerative disorders, father at age 84, his mother age 100 - Social History Smoking Status: Former smoker Alcohol Use: Heavy (The patient drinks significant amount of 1 on a daily basis , he reports he has been doing so for a significant amount of time, he denies ever experiencing acute alcohol withdrawal or withdrawal seizures but he does note that he is not discontinued alcohol for any period of time the past couple years, his niece reports that heavy alcohol use has been consistent throughout most of his adult life) Drug Use: None Additional social history: Resides in an apartment next door to his niece, patient has been homebound for approximately 2 years, using a wheelchair to get around his apartment up until 3-4 weeks ago Review of Systems Review of Systems: ROS: 10pt was reviewed & negative except for what was stated in HPI & below Constitutional: Reports: weakness Gastrointestinal: Reports: diarrhea Physical Exam Physical Exam: Temp Pulse Resp BP Pulse Ox 36.5 C 125 H 16 78/62 L 95 02/16/17 13:14 02/16/17 13:14 02/16/17 13:14 02/16/17 13:14 02/16/17 13:14 Constitutional: no apparent distress, not in pain, chronically ill appearing, unkempt, No uncomfortable Eyes: PERRL, anicteric sclera, EOMI Ears, Nose, Mouth, Throat: moist mucous membranes, hearing normal, other ( geographic glossitis, no oral lesions) Cardiovascular: tachycardia, other (Distant heart sounds), No systolic murmur, No irregularly irregular, No edema Respiratory: no respiratory distress, no rales or rhonchi, clear to auscultation Gastrointestinal: normoactive bowel sounds, soft, non-tender abdomen, no palpable masses, No hepatosplenomegally, No distension Genitourinary: no bladder fullness, no bladder tenderness Skin: other (Pressure injury on sacrum), No rash Musculoskeletal: full muscle strength, other (Normal muscle tone), No muscular tenderness Neurologic: AAOx3, sensation intact bilaterally, weakness (3/5 motor strength on dorsiflexion bilaterally), CN II-XII Intact, other (Masked facies), No asterixes (No tremulousness), No facial droop Psychiatric: not anxious, thought process linear, flat affect, other ( Cooperative and follows commands, naming 3/3, concentration 7/7), No agitated Lab Data & Imaging Review 02/16/17 13:30 02/16/17 13:30 WBC 7.74 10^3/uL (3.80-9.50) 02/16/17 13:30 RBC 3.04 10^6/uL (4.40-6.38) L 02/16/17 13:30 Hgb 12.3 g/dL (13.7-17.5) L 02/16/17 13:30 Hct 34.8 % (40.0-51.0) L 02/16/17 13:30 MCV 114.5 fL (81.5-99.8) H 02/16/17 13:30 MCH 40.5 pg (27.9-34.1) H 02/16/17 13:30 MCHC 35.3 g/dL (32.4-36.7) 02/16/17 13:30 RDW 12.9 % (11.5-15.2) 02/16/17 13:30 Plt Count 185 10^3/uL (150-400) 02/16/17 13:30 MPV 8.9 fL (8.7-11.7) 02/16/17 13:30 Neut % (Auto) 71.4 % (39.3-74.2) 02/16/17 13:30 Lymph % (Auto) 15.5 % (15.0-45.0) 02/16/17 13:30 Nance % (Auto) 11.9 % (4.5-13.0) 02/16/17 13:30 Eos % (Auto) 0.4 % (0.6-7.6) L 02/16/17 13:30 Baso % (Auto) 0.5 % (0.3-1.7) 02/16/17 13:30 Nucleat RBC Rel Count 0.0 % (0.0-0.2) 02/16/17 13:30 Absolute Neuts (auto) 5.53 10^3/uL (1.70-6.50) 02/16/17 13:30 Absolute Lymphs (auto) 1.20 10^3/uL (1.00-3.00) 02/16/17 13:30 Absolute Monos (auto) 0.92 10^3/uL (0.30-0.80) H 02/16/17 13:30 Absolute Eos (auto) 0.03 10^3/uL (0.03-0.40) 02/16/17 13:30 Absolute Basos (auto) 0.04 10^3/uL (0.02-0.10) 02/16/17 13:30 Absolute Nucleated RBC 0.00 10^3/uL (0-0.01) 02/16/17 13:30 Immature Gran % 0.3 % (0.0-1.1) 02/16/17 13:30 Immature Gran # 0.02 10^3/uL (0.00-0.10) 02/16/17 13:30 D-Dimer 0.93 ug/mLFEU (0.00-0.50) H 02/16/17 13:30 Sodium 133 mEq/L (134-144) L 02/16/17 13:30 Potassium 3.8 mEq/L (3.5-5.2) 02/16/17 13:30 Chloride 103 mEq/L (97-110) 02/16/17 13:30 Carbon Dioxide 16 mEq/l (22-31) L 02/16/17 13:30 Anion Gap 14 mEq/L (8-16) 02/16/17 13:30 BUN 11 mg/dL (7-23) 02/16/17 13:30 Creatinine 0.8 mg/dL (0.7-1.3) 02/16/17 13:30 Estimated GFR > 60 02/16/17 13:30 Glucose 100 mg/dL (70-100) 02/16/17 13:30 Calcium 8.3 mg/dL (8.5-10.4) L 02/16/17 13:30 Total Bilirubin 0.5 mg/dL (0.1-1.4) 02/16/17 13:30 Conjugated Bilirubin 0.1 mg/dL (0.0-0.5) 02/16/17 13:30 Unconjugated Bilirubin 0.4 mg/dL (0.0-1.1) 02/16/17 13:30 AST 50 IU/L (17-59) 02/16/17 13:30 ALT 36 IU/L (21-72) 02/16/17 13:30 Alkaline Phosphatase 80 IU/L (38-126) 02/16/17 13:30 Total Protein 5.3 g/dL (6.3-8.2) L 02/16/17 13:30 Albumin 2.7 g/dL (3.5-5.0) L 02/16/17 13:30 Ethyl Alcohol 17 mg/dL (0-10) H 02/16/17 13:30 Visualized and Interpreted EKG results: Yes EKG Interpretation: Positive for: other (Normal sinus mechanism with low voltage in the inferior leads) Assessment & Plan Assessment: 71-year-old male presents with acute on chronic paresis rendering him unable to complete activities of daily living, unsafe in his home environment, complicated by comorbid acute metabolic acidosis hypotension, suspected acute alcohol withdrawal Plan: 1. Paresis. Acute on chronic, new problem this provider, further workup indicated. This patient's chief complaint, is rendered him unable to complete activities of daily living in his own home, raise concerns by his PCP with suggestion of nursing home facility for rehab -potential etiologies include alcohol induced myopathy versus appear deconditioning versus development of Parkinson's like syndrome -get CPK, ESR, CRP to rule out inflammatory myopathies -get Neurology consultation in a.m. to consider the possibility of a Parkinson' s like syndrome, to establish with the patient, then plan outpatient follow-up and workup moving forward -give high-dose IV thiamine as patient may have a component of vitamin deficiency with his aforementioned eating habits -get physical and occupational therapy evaluations, gauge whether patient requires nursing home facility -hold on back advanced imaging as the patient has no tenderness to palpation over his back, his urinary incontinence is chronic and most likely secondary to his alcoholism, and he does not have objective paresis on physical exam, rather more a subjective paresis which could be consistent with any of the etiologies as outlined above 2. Hypotension. Acute, systolic blood pressure 78 on presentation with a compensatory tachycardia, signifying hypovolemia with metabolic acidosis -most likely secondary to poor oral intake as well as intake consisting of mostly alcohol which is likely resulted in combination ketoacidosis and lactic acidosis -discussed with Dr. David Ku, he reports the patient has received a fluid bolus and his systolic blood pressure has improved to 110 to 120, currently stable for lead[facility] bed with regular blood pressure monitoring -echocardiogram from July of 2016 demonstrated ejection fraction of 65-70%, hold on repeating the echocardiogram at this time as his tachycardia is most likely secondary to alcohol withdrawal and hypertension most likely secondary to hypovolemia, neither of these 2 entities resolve with IV fluids and Ativan, then would recommend repeating echocardiogram -does not appear to hardware infection, but if the patient is febrile, developed leukocytosis, or recurrence hypotension, will pursue sepsis evaluation 3. Hyponatremia. Chronic, reviewed outside records including 08/01/[address] Orion Griffin, reports the patient was evaluated for syncope most likely secondary to alcohol abuse, serum sodium level is 133 at discharge -continue monitor serum sodium level closely as the patient is receiving ongoing IV fluids 4. Suspected acute alcohol withdrawal. Evidenced by tachycardia, alcohol level 17 on presentation, daily drinker, placed on CIWA protocol 5. Metabolic acidosis. Acute, as mentioned above, most likely secondary to a combination of ketoacidosis plus lactic acidosis plus bicarbonate loss in stool , serum bicarbonate level 16 -get serum lactic acid level right now -give IV normal saline and repeat serum chemistry in a.m. 6. Anemia. Microcytic, most likely secondary to marrow suppression in the setting of chronic alcoholism, but the patient's history of patent colored watery diarrhea as does lend possibility of lower GI bleed -get fecal occult blood test -continue monitor CBC 7. Diarrhea. Acute, most likely secondary to enteric irritation of chronic alcoholism, but will send GI PCR panel given that has developed over the past few weeks and the patient has been alcoholic most of his adult life, suggesting that there may be an acute component of this -okay to continue with p.r.n. Imodium given his metabolic acidosis 8. Pressure injury. Present on admission, located on the sacrum, wound care consult appreciated Diet. Regular with supplements, dietary consultation appreciated to evaluate for protein calorie malnutrition, pre-albumin level ordered Prophylaxis. High risk patient Lovenox 40 Code. Full per patient, his niece Emma is MD BENÍTEZ Disposition. Anticipated discharge uncertain this time, anticipated length stay greater than 48 hours reasonable medical necessity including acute paresis in the setting of high risk comorbid hypotension, suspected alcohol withdrawal, metabolic acidosis, requiring further workup and specially consultation as outlined above.
[2017-02-16 15:51] LABS: SEDIMENTATION RATE 36 MM/HR (0-20)
[2017-02-16] MEDS: NS W/ 20 KCl/L 1,000 ML IV SCH (16:06)
--- NOTE | 2017-02-16 16:06 | PDMN ---
Medical Necessity Medical necessity: C/M review: est. > 2 MN LOS for eval and TX of acute on chronic paresis rendering patient unable to complete ADLs, inability to get out of bed or wheelchair, patient unsafe in his home environment, acute hypotension , suspected acute alcohol withdrawal, acute metabolic acidosis, anemia, diarrhea , requiring planned Neurology consult, Dietary consult, Wound Care consult, ongoing IV fluids, IV Thiamine, cardiac monitoring, acute inpt PT/OT, comorbid, chronic hyponatremia, pressure injury on sacrum present on admit per H/P.
[2017-02-16] MEDS: THIAMINE HCL 500 MG in NS 100 ML IV SCH (16:50)
[2017-02-17 00:52] LABS: COLOR AMBER; LEUKOCYTE ESTERASE,URINE 3+ (NEGATIVE); NITRITE,URINE POSITIVE (NEGATIVE)
[2017-02-17 01:24] LABS: BACTERIA 4+ /hpf (NONE SEEN); MUCUS 1+ /lpf (NONE-1+); RBC,URINE 50-182 /hpf (0-3); WBC,URINE 50-182 /hpf (0-3)
[2017-02-17 01:25] LABS: HYALINE CASTS 50-182 /lpf (0-1)
[2017-02-17 01:27] LABS: PHENCYCLIDINE URINE BCH < 6 ng/ml (NEGATIVE); PHENCYCLIDINE URINE BCH NEGATIVE (NEGATIVE); TETRAHYDROCANNABINOL URINE < 5 ng/mL (NEGATIVE); TETRAHYDROCANNABINOL URINE NEGATIVE (NEGATIVE)
[2017-02-17] MEDS: NS W/ 20 KCl/L 1,000 ML IV SCH (03:33)
[2017-02-17 04:42] LABS: % IMMATURE GRANULYOCYTES 0.8 % (0.0-1.1); ABSOLUTE IMMATURE GRANULOCYTES 0.04 10^3/uL (0.00-0.10); ADD DIFF? NO; ADD MORPH? YES; ADD SCAN? NO; ATYPICAL LYMPHOCYTE FLAG 0 (0-99); FRAGMENT RBC FLAG 0 (0-99); HEMATOCRIT 30.4 % (40.0-51.0); HEMOGLOBIN 10.5 g/dL (13.7-17.5); LEFT SHIFT FLG 0 (0-99); LIPEMIA HEMOLYSIS FLAG 90 (0-99); MEAN CELL HEMOGLOBIN 40.5 pg (27.9-34.1); MEAN CELL HEMOGLOBIN CONCENTR. 34.5 g/dL (32.4-36.7); MEAN PLATELET VOLUME 8.8 fL (8.7-11.7); PLATELET CLUMPS FLAG 10 (0-99); PLATELET COUNT 139 10^3/uL (150-400); RED BLOOD CELL COUNT 2.59 10^6/uL (4.40-6.38); RED CELL DISTRIBUTION WIDTH 13.1 % (11.5-15.2)
[2017-02-17 04:46] LABS: MEAN CELL VOLUME 117.4 fL (81.5-99.8)
[2017-02-17 04:52] LABS: ALANINE AMINOTRANSFERASE 38 IU/L (21-72); ALBUMIN 2.1 g/dL (3.5-5.0); ALKALINE PHOSPHATASE 63 IU/L (38-126); ANION GAP 7 mEq/L (8-16); ASPARTATE AMINOTRANSFERASE 35 IU/L (17-59); CALCIUM 7.7 mg/dL (8.5-10.4); CARBON DIOXIDE 23 mEq/l (22-31); CHLORIDE 106 mEq/L (97-110); CREATININE 0.7 mg/dL (0.7-1.3); GLOMERULAR FILTRATION RATE > 60; GLUCOSE 83 mg/dL (70-100); MAGNESIUM 1.6 mg/dL (1.6-2.3); POTASSIUM 3.7 mEq/L (3.5-5.2); SODIUM 136 mEq/L (134-144); TOTAL PROTEIN 4.6 g/dL (6.3-8.2)
[2017-02-17 04:53] LABS: INR 1.22 (0.83-1.16); PROTIME(PATIENT) 15.4 SEC (12.0-15.0)
[2017-02-17 04:59] LABS: PREALBUMIN 7.8 mg/dL (17.6-36.0)
[2017-02-17 05:11] LABS: MACROCYTES 2+
[2017-02-17 05:12] LABS: PLATELET ESTIMATE DECREASED (ADEQ)
--- NOTE | 2017-02-17 07:34 | WOCRNPDOC ---
WOCRN Advanced Assessment Note - Skin Integrity Problem, Advanced Assess Sacrum Dressing Type: Allevyn Life Anca Wound Tissue: Blanching, Erythema Wound Bed Constitution: Healed Pressure Injury Present on Admit: Yes Skin Integrity Problem Comment: Scar tissue present with no open wound. Currently blanching without any concerns. Izabela CUENCA in room for care. Wound care will sign off. Please reconsult prn.
[2017-02-17] MEDS: ENOXAPARIN 40 MG/0.4 ML SYR SC SCH (08:05)
[2017-02-17] MEDS: THIAMINE HCL 500 MG in NS 100 ML IV SCH (08:05)
--- NOTE | 2017-02-17 09:39 | GCON ---
[f rep st] CONSULTATION NEUROLOGIC CONSULTATION REFERRING PHYSICIAN: Omid Markham MD HISTORY: The patient is a 71-year-old gentleman who I am asked to see in neurologic consultation reg danyelle garcia. Specifically, he was seen by Dr. Markham who wanted to be sure there was not a parki nsonian syndrome or other primary myopathic condition to explain the patient's subacute decline. The history is obtained from reviewing the medical records as well as history and physical from Dr. Betito larsen, the emergency room notes and direct conversation with the patient. He seems to be a fairly relia ble historian, although it is sometimes necessary to redirect him due to getting a little tangential. In any case, changes began significantly about 1 year ago, when he fell and says he had a fractured pelvis. That caused a setback of relative debilitation. He subsequently fractured a bone in his fo ot and was in a boot and mostly in a wheelchair for months. He then said the boot was taken off and within 2 days he fractured another bone and has continued to be fairly debilitated from his orthopedi c problems. Prior to this, he was essentially independent in most activity. He has now reached the point of needing assistance for most transfers and after consultation with Dr. Zamora recently, it wa s suggested he should be hospitalized in preparation for longterm facility placement. Over th e last 4-6 weeks, the decline has been more evident with loss of functional capabilities such as cons istently being able to transfer, ambulate and move from wheelchair to bed, etc. From the patient's p erspective, this is true. He says that he does often need more assistance and usually has to pull up to get up from seated positions or from the toilet. He describes having numbness or tingling in his feet ever since he fell 1 year ago. He uses the word neuropathy to describe this, which from his pe rspective came on fairly suddenly. He is not noting specific bowel or bladder dysfunction. He has a little bit of pain in the feet, but it is mostly an abnormal sensation. He feels his legs are weake r than his arms. He has not found obvious exacerbating or alleviating factors for many of the sympto ms. He knows his overall activity level has dramatically decreased as result of these fractures and relative restrictions on activity. He has had some physical therapy he says. Most of the time he is sitting. He has never had a similar problem. He has been a regular consumer of high volumes of alcohol for many years. This would probably be 30 or 40 years of chronic alcohol use. He says now he is drinking about a bottle of wine per day but parr s consumed other substances over the time and those details of quantity are not precise but certainly excessive. I asked him why he drinks, and he says he does not really know. He has never had withdr awal seizures or experienced acute withdrawal syndromes. He has never had a DUI. PAST MEDICAL HISTORY: As outlined above. He has history of sacral decubitus ulcer, chronic hyponatr emia, which is mild. Prior colonoscopy. Family history of some neurodegenerative process but I am u nclear on that. He is a previous smoker. Alcohol as outlined above. No drug use. He is living in an apartment near his niece and has had relative immobility for at least the last year or two. ALLERGIES: To penicillin. MEDICATIONS: Prior to admission, Imodium, Aleve, and nystatin. He is currently receiving thiamine. Ativan as needed. DVT prophylaxis with Lovenox. REVIEW OF SYSTEMS: Notable for some relatively frequent diarrhea lately. He has had some weight los s, but he is not sure how much and mostly says it has been muscle mass he has lost in his legs. A 10 -point review of systems is otherwise unremarkable. PHYSICAL EXAM: VITAL SIGNS: Blood pressure is 108/74, pulse of 80, respirations 14, temperature 36. 5. GENERAL: He is a well-developed, but thin man who looks a little bit pale, lying in the bed in n o acute distress. EYES: Clear. NECK: Supple with no bruits or masses. CARDIAC: Regular rate and rhythm. No murmur. LUNGS: Clear. No skin rash in the extremities. He has some slight hammertoe deformities bilaterally. NEUROLOGIC: He is awake, alert, and attentive most of the time, although h e can be a little slow to answer questions and is a little deliberate and sometimes needs redirecting to stay focused on the details, but usually gets them correct. He is friendly and rather matter of fact, when it comes to his current situation of drinking alcohol. For example, he said "I guess I co uld quit, but I'm not sure I will." He also is aware that he is here for prison placement and specifically was questioning whether after the 3 days required by Medicare, Medicaid he could go home for about a week to be with his dog before going to a longterm facility. He is oriented to p erson, place, time, and general situation. He has good recent and remote memory. Concentration and attention are fairly well preserved although his attention can wander slightly as we were communicati ng and might be distracted such as specifically deciding he wants to start looking for his lip balm a s we are talking. He has a good general fund of knowledge. Speech is fluent. Although he moves a l ittle bit deliberately, he is not particularly bradykinetic in the sense of decreased facial expressi on or decreased blink or other profound bradykinesia changes. In other words, I do not see clear-cut parkinsonism. Pupils are 3 mm and reactive. Funduscopic exam is unremarkable, visual saenz are fu ll. Extraocular movements are intact. Normal facial sensation and facial strength. The palate elev ates symmetrically and tongue protrudes midline. Hearing is preserved. No weakness of head turning or shoulder shrug. The motor examination reveals a generalized prominent loss of muscle bulk without focal muscular atrophy or fasciculations. The legs are particularly atrophied in a generalized dist ribution and a lot of subcutaneous fat seems to be reduced throughout his body. This gives him a was stacia appearance. Testing individual muscles for power shows the greatest weakness in the proximal low er extremity hip flexors at about 3 to 4/5 and a little bit stronger distally in the lower extremitie s. Quadriceps are also weak but reasonable resistance. Upper extremity power is 4/5 approximately i n the proximal and distal locations. Sensation is diminished for vibration and sharp and temperature up to about the mid calf. This is symmetric. There is not distinct sensory loss in the upper extre mities. I did not have him try to walk or stand with me currently for safety reasons, but he will be seeing Physical Therapy later. His [id number] is performed without ataxia. Rapid alternating m ovements are not particularly slowed. LABORATORY STUDIES: Show white count of 4000, hematocrit of 30%, MCV is elevated at 117, sedimentati on rate 36. Platelet count 139,000. INR of 1.2. Chemistry on admission, sodium 133, currently 136, bicarbonate was 16 on admission, now 23. Liver enzymes are normal. CK is normal. C-reactive prote in mildly elevated at 15, normal TSH. Total protein is mildly diminished at 4.6. Urinalysis shows i ncreased red blood cells and white blood cells, 3+ leukocyte esterase and 4+ bacteria. Occult blood negative in the stool. Alcohol level 17 mg/dL. He has not had specific diagnostic imaging during this hospitalization. He has never had imaging of the brain in reviewing the medical records. There is an echocardiogram report from July of 2016, ic h showed ejection fraction of 58%. He was admitted to the hospital July 31 for syncope. He had passed out that morning when sitting in a chair in the shower. He did have some elevation of liver enzymes at that time, and thrombocytopenia thought to be related to his alcohol use. IMPRESSION: The patient has experienced a rather slow but subacute decline lately in his general str ength and functional capabilities following a series of orthopedic injuries with fall and fracture of the pelvis and then the foot on 2 occasions. He has reached the point of being unable to adequately care for himself and is in need of longterm facility, which is why he was specifically chava t to the hospital. On my examination today, I find generalized muscle wasting as well as moderate we akness and some distal sensory changes in the lower extremities. He is generally intact cognitively. 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 It is not surpri sing that he would have a decline as he continues to have very limited exercise and is going to likel y further decline without more intervention and improvement in his general nutrition and health. I d o not think he has a spinal cord syndrome based on his overall presentation. There is no hyperreflex ia on his examination. In fact, the reflexes are relatively diminished in all the extremities, consi stent with what we would see with neuropathy and no pathologic reflexes such as Babinski signs. He s hould eventually improve if most of this is from his alcoholism and poor nutrition and debilitated st ate, assuming he will cease all alcohol and can improve nutrition and participate in regular exercise . Depending on his clinical course, followup as an outpatient may be productive for further document ation of neuropathy and myopathic changes, but that is not an urgent issue. The main focus should be improving his overall health with anticipated gradual improvements. I defer to Orthopedic Surgery o r his specialist managing this for any issues related to that. He will need physical and occupationa l therapy and that is planned today. The question about whether he might have a parkinsonian syndrom e is reasonable, but I do not find any convincing evidence with this overall presentation. Please co ntact me with any other questions. /[id number]/MODL
--- NOTE | 2017-02-17 12:38 | HOSPPROG ---
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 and atrophy from deconditioning and recent orthopedic injury -neurology consulting to rule out underlying neurologic process -PT/OT -check B12 # diarrhea - pt with loose stools at home - stool pathogen panel + norovirus - cont supportive care - contact isolation # Etoh Abuse - pt reports drinking throughout the day so no opportunity for w/d intimately linked to his failing to thrive at home # sinus tachycardia - suspect 2/2 early Etoh withdrawal- oxygen saturations 98% on RA TELE (personally reviewed and interpreted) sinus rhythm - received IVF resuscitation - tx on CIWA protocol # chronic Sacral pressure injury - present on admission - - wound care # chronic hyponatremia - Sodium 133-> 136 this am after IVF - continue to follow # proph - Lovenox # diet - regular # dispo - > 2 MN as requires SNF placement for safety - awaiting PT/OT zaida I have discussed the case with RN - will place the patient in contact isolation 2/ Norovirus Subjective: has improved appetite this am Objective: Vital Signs Temp Pulse Resp BP Pulse Ox 36.6 C 87 16 104/72 98 02/17/17 12:00 02/17/17 12:00 02/17/17 12:00 02/17/17 12:00 02/17/17 12:00 Microbiology 02/17/17 04:10 Gastrointestinal Tract Panel (PCR) - Final Stool Norovirus Gi/Gii Laboratory Results 02/17/17 04:20 02/17/17 04:20 02/16/17 02/17/17 02/18/17 05:59 05:59 05:59 Intake Total 2889 Output Total 400 Balance 2489 PT 15.4 SEC (12.0-15.0) H 02/17/17 04:20 INR 1.22 (0.83-1.16) H 02/17/17 04:20 - Physical Exam Constitutional: chronically ill appearing Eyes: anicteric sclera Ears, Nose, Mouth, Throat: moist mucous membranes Cardiovascular: regular rate and rhythym, tachycardia Respiratory: no respiratory distress Gastrointestinal: normoactive bowel sounds Genitourinary: no bladder fullness Skin: warm Musculoskeletal: No asymmetric calves Neurologic: AAOx3 Psychiatric: interacting appropriately Lymph, Heme, Immunologic: no cervical LAD ICD10 Worksheet Patient Problems: Problems Problem Status Onset Dehydration Acute Weakness Acute Syncope Acute
--- NOTE | 2017-02-17 16:59 | ASMTCMCOM ---
CM Note CM Note Notes: CM spoke w/ BANG Gurrola and Dr. Doherty regarding d/c POC. PT/OT is recommending SNF. CM met w/ pt for dispo planning. Pt reports that he is not interested in stopping his ETOH consumption. Pt would like to consult w/ his niece before making any decisions. CM called Emma and left a msg requesting a call back. CM spoke w/ Emma and she reports that [facility] and would be agreeable to having pt going to [facility] for SNF. CM to discuss w/ pt tomorrow about dispo plan. Plan: TBD Date Signed: 02/17/2017 04:58 PM Electronically Signed By:ZULEYMA Chahal
[2017-02-17] MEDS ORDERED: VODKA 50 ML BOTTLE PO SCH (18:00)
[2017-02-17] MEDS: WHITE WINE 120 ML BOTTLE PO SCH (20:59)
[2017-02-18] MEDS: NS W/ 20 KCl/L 1,000 ML IV SCH ×2 (00:43→11:55)
[2017-02-18 05:51] LABS: HEMOGLOBIN 10.7 g/dL (13.7-17.5); MEAN CELL HEMOGLOBIN 40.8 pg (27.9-34.1); MEAN CELL HEMOGLOBIN CONCENTR. 34.5 g/dL (32.4-36.7); RED BLOOD CELL COUNT 2.62 10^6/uL (4.40-6.38); RED CELL DISTRIBUTION WIDTH 13.1 % (11.5-15.2)
[2017-02-18 06:08] LABS: ANION GAP 8 mEq/L (8-16); CALCIUM 7.9 mg/dL (8.5-10.4); CARBON DIOXIDE 19 mEq/l (22-31); CHLORIDE 113 mEq/L (97-110); CREATININE 0.6 mg/dL (0.7-1.3); GLOMERULAR FILTRATION RATE > 60; GLUCOSE 78 mg/dL (70-100); MEAN CELL VOLUME 118.3 fL (81.5-99.8); POTASSIUM 4.2 mEq/L (3.5-5.2); SODIUM 140 mEq/L (134-144)
[2017-02-18] MEDS: ENOXAPARIN 40 MG/0.4 ML SYR SC SCH (09:43)
[2017-02-18] MEDS: THIAMINE HCL 500 MG in NS 100 ML IV SCH (09:43)
--- NOTE | 2017-02-18 10:52 | HOSPPROG ---
Hospitalist Progress Note Assessment/Plan: DIAGNOSES: -Acute diarrheal illness with norovirus leading to dehydration and weakness, hypotension -acute on chronic bilateral leg weakness, with impaired mobility and inability to ambulate -acute metabolic acidosis possibly bicarbonate losses from diarrhea -hypotension, resolved with treatment here -sacral pressure injury, present on admission -severe pyuria, question UTI, cultures pending -macrocytic anemia, chronic but aggravated by acute blood loss from his diarrheal illness -alcoholism, not willing to consider discontinuing alcohol in the long run PLANS: -continue physical occupational therapy -nutrition supplements -follow urine cultures considered possible need for treatment of pyuria, and will recheck his UA -wound care for sacral pressure injury and preventive measures including nutritional therapy -thiamin replacement -supportive care for the diarrheal illness SUBJECTIVE: Still having diarrhea Remains quite weak No pain or nausea, eating well No fever symptoms OBJECTIVE Vitals reviewed: Stable without fever Exam: alert oriented skin warm dry color ok resps not labored lungs clear BSs heart regular abd soft nondistended nontender, bowel sounds present limbs warm, mild by pedal edema iv site ok Objective: Vital Signs Temp Pulse Resp BP Pulse Ox 36.8 C 94 18 107/75 93 02/18/17 07:13 02/18/17 07:13 02/18/17 07:13 02/18/17 07:13 02/18/17 07:13 Microbiology 02/17/17 04:10 Gastrointestinal Tract Panel (PCR) - Final Stool Norovirus Gi/Gii Laboratory Results 02/18/17 05:08 02/18/17 05:08 02/17/17 02/18/17 02/19/17 06:59 06:59 06:59 Intake Total 2889 1500 Output Total 400 Balance 2489 1500 PT 15.4 SEC (12.0-15.0) H 02/17/17 04:20 INR 1.22 (0.83-1.16) H 02/17/17 04:20 ICD10 Worksheet Patient Problems: Problems Problem Status Onset Dehydration Acute Weakness Acute Syncope Acute
--- NOTE | 2017-02-18 14:02 | ASMTCMCOM ---
CM Note CM Note Notes: CM met w/ pt for dispo planning. Pt is agreeable to referral to [facility]. CM sent referral to [facility]. Selena from [facility] in today to assess pt. CM to follow. Plan: SNF; [facility] Date Signed: 02/18/2017 02:01 PM Electronically Signed By:ZULEYMA Chahal
[2017-02-18] MEDS: WHITE WINE 120 ML BOTTLE PO SCH (19:48)
[2017-02-19 05:28] LABS: % IMMATURE GRANULYOCYTES 0.6 % (0.0-1.1); ABSOLUTE IMMATURE GRANULOCYTES 0.03 10^3/uL (0.00-0.10); ABSOLUTE NRBC COUNT 0.02 10^3/uL (0-0.01); ADD DIFF? NO; ADD MORPH? YES; ADD SCAN? NO; ATYPICAL LYMPHOCYTE FLAG 10 (0-99); FRAGMENT RBC FLAG 0 (0-99); HEMATOCRIT 29.9 % (40.0-51.0); LEFT SHIFT FLG 0 (0-99); LIPEMIA HEMOLYSIS FLAG 80 (0-99); MEAN CELL HEMOGLOBIN 40.3 pg (27.9-34.1); MEAN CELL HEMOGLOBIN CONCENTR. 33.4 g/dL (32.4-36.7); MEAN PLATELET VOLUME 9.1 fL (8.7-11.7); NRBC-AUTO% 0.4 % (0.0-0.2); PLATELET CLUMPS FLAG 0 (0-99); PLATELET COUNT 150 10^3/uL (150-400); RED BLOOD CELL COUNT 2.48 10^6/uL (4.40-6.38); RED CELL DISTRIBUTION WIDTH 13.2 % (11.5-15.2)
[2017-02-19 05:31] LABS: MEAN CELL VOLUME 120.6 fL (81.5-99.8)
[2017-02-19 05:57] LABS: ALANINE AMINOTRANSFERASE 33 IU/L (21-72); ALKALINE PHOSPHATASE 57 IU/L (38-126); ANION GAP 8 mEq/L (8-16); ASPARTATE AMINOTRANSFERASE 32 IU/L (17-59); BILIRUBIN,TOTAL 0.5 mg/dL (0.1-1.4); BILIRUBIN-CONJUGATED 0.3 mg/dL (0.0-0.5); BILIRUBIN-UNCONJUGATED 0.2 mg/dL (0.0-1.1); CALCIUM 7.8 mg/dL (8.5-10.4); CARBON DIOXIDE 18 mEq/l (22-31); CHLORIDE 113 mEq/L (97-110); CREATININE 0.6 mg/dL (0.7-1.3); GLOMERULAR FILTRATION RATE > 60; GLUCOSE 78 mg/dL (70-100); POTASSIUM 3.7 mEq/L (3.5-5.2); SODIUM 139 mEq/L (134-144); TOTAL PROTEIN 4.5 g/dL (6.3-8.2)
[2017-02-19 06:43] LABS: MACROCYTES 2+; PLATELET ESTIMATE ADEQUATE (ADEQ)
[2017-02-19] MEDS: ENOXAPARIN 40 MG/0.4 ML SYR SC SCH (09:11)
[2017-02-19] MEDS: THIAMINE HCL 500 MG in NS 100 ML IV SCH (09:12)
[2017-02-19] MEDS ORDERED: NS 1,000 ML IV ONE (11:40)
--- NOTE | 2017-02-19 11:44 | HOSPPROG ---
Hospitalist Progress Note Assessment/Plan: DIAGNOSES: -worsening sinus tachycardia, suspect this is due to fluid losses from his diarrhea but other possible causes will be considered the; do not think he has septic; D-dimer was high in the ER, not certain why that was done and at this point he does not have other signs or symptoms of PE, but if tachycardia does not improve may need to reconsider that question -Acute diarrheal illness with norovirus leading to dehydration and weakness, hypotension -acute on chronic bilateral leg weakness, with impaired mobility and inability to ambulate -acute metabolic acidosis possibly bicarbonate losses from diarrhea -hypotension, resolved with treatment here -sacral pressure injury, present on admission -severe pyuria, question UTI, cultures pending -macrocytic anemia, chronic but aggravated by acute blood loss from his diarrheal illness -alcoholism, not willing to consider discontinuing alcohol in the long run PLANS: -1 L normal saline bolus, reassess tachycardia, consider 2nd L of saline or other measures to treat and diagnosis this tachycardia -continue physical occupational therapy -nutrition supplements -follow urine cultures considered possible need for treatment of pyuria, and will recheck his UA -wound care for sacral pressure injury and preventive measures including nutritional therapy -thiamin replacement -supportive care for the diarrheal illness SUBJECTIVE: Feels a bit better overall, still having some diarrhea but less episodes today No crampy abdominal or other abdominal pain and no bleeding No shortness of breath chest pain leg pain or leg swelling No fever symptoms Still weaker than usual and does not feel like he can do his usual wheelchair transfers as he would at home His nurse also noticed that he has significant difficulty with transfers due to generalized weakness OBJECTIVE Vitals reviewed: More tachycardic today with a regular pulse between 105 and 110, otherwise vitals are stable without fever Exam: alert oriented looks very relaxed skin warm dry color ok resps not labored lungs clear BSs heart regular abd soft nondistended nontender, bowel sounds present limbs warm, trace pedal edema iv site ok Lab data chemistry and CBC are stable, still with macrocytic anemia Objective: Vital Signs Temp Pulse Resp BP Pulse Ox 36.8 C 107 H 12 121/97 H 97 02/19/17 08:00 02/19/17 08:00 02/19/17 08:00 02/19/17 08:00 02/19/17 08:00 Laboratory Results 02/19/17 04:30 02/19/17 04:30 02/18/17 02/19/17 02/20/17 06:59 06:59 06:59 Intake Total 1500 Output Total 200 Balance 1500 -200 PT 15.4 SEC (12.0-15.0) H 02/17/17 04:20 INR 1.22 (0.83-1.16) H 02/17/17 04:20 ICD10 Worksheet Patient Problems: Problems Problem Status Onset Dehydration Acute Weakness Acute Syncope Acute
--- NOTE | 2017-02-19 14:18 | ASMTCMCOM ---
CM Note CM Note Notes: CM spoke w/ Dr. Flores and BANG Coleman regarding d/c POC. CM met w/ pt for dispo planning and informed him that [facility] has accepted him. CM called pts reed Carter and informed her of pts dispo plan. CM to follow. Plan: [facility] Date Signed: 02/19/2017 02:14 PM Electronically Signed By:ZULEYMA Chahal
[2017-02-19] MEDS: WHITE WINE 120 ML BOTTLE PO SCH (18:50)
[2017-02-20] MEDS ORDERED: NS 500 ML IV ONE (03:25)
[2017-02-20] MEDS: NS W/ 20 KCl/L 1,000 ML IV SCH (03:37)
[2017-02-20 06:05] LABS: ANION GAP 10 mEq/L (8-16); CALCIUM 7.7 mg/dL (8.5-10.4); CARBON DIOXIDE 15 mEq/l (22-31); CHLORIDE 113 mEq/L (97-110); CREATININE 0.6 mg/dL (0.7-1.3); GLOMERULAR FILTRATION RATE > 60; GLUCOSE 75 mg/dL (70-100); POTASSIUM 3.9 mEq/L (3.5-5.2); SODIUM 138 mEq/L (134-144)
[2017-02-20] MEDS: THIAMINE HCL 500 MG in NS 100 ML IV SCH (09:06)
[2017-02-20] MEDS: ENOXAPARIN 40 MG/0.4 ML SYR SC SCH (09:06)
[2017-02-20] MEDS ORDERED: NS 1,000 ML IV ONE (10:28)
[2017-02-20] MEDS ORDERED: LOPERAMIDE HCL 2 MG CAP PO PRN (10:32)
--- NOTE | 2017-02-20 10:33 | HOSPPROG ---
Hospitalist Progress Note Assessment/Plan: DIAGNOSES: -worsening sinus tachycardia, suspect this is due to fluid losses from his diarrhea but other possible causes will be considered the; do not think he has septic; D-dimer was high in the ER, not certain why that was done and at this point he does not have other signs or symptoms of PE, but as tachycardia is persistent despite IV fluids, will get CT chest today -Acute diarrheal illness with norovirus leading to dehydration and weakness, hypotension -acute on chronic bilateral leg weakness, with impaired mobility and inability to ambulate -acute metabolic acidosis possibly bicarbonate losses from diarrhea -hypotension, resolved with treatment here -sacral pressure injury, present on admission, remains as a blanching erythema without any further changes at this time -severe pyuria, question UTI, cultures pending -macrocytic anemia, chronic but aggravated by acute blood loss from his diarrheal illness -alcoholism, not willing to consider discontinuing alcohol in the long run PLANS: -will give another 1 L normal saline bolus and reassess hemodynamics, possibly further fluids by bolus, -CT angio of chest today to rule out PE in this in mobile patient with tachycardia -continue physical occupational therapy -nutrition supplements -wound care for sacral pressure injury and preventive measures including nutritional therapy -thiamin replacement -supportive care for the diarrheal illness SUBJECTIVE: Still having significant watery diarrhea. Numerous episodes, notably more per the patient and nurse than have been recorded in the chart the last couple days No abdominal pain no bleeding No shortness of breath OBJECTIVE Vitals reviewed: Again the evenm more tachycardic today with a regular pulse between up to 115 and more persistent,, otherwise vitals are stable without fever Exam: alert oriented looks very relaxed but tired skin warm dry color ok resps not labored lungs clear BSs heart regular but tachycardic abd soft nondistended nontender, bowel sounds present limbs warm, trace pedal edema iv site ok Lab data: Low bicarb and high chloride likely represent a combination of GI bicarbonate losses and saline infusions Objective: Vital Signs Temp Pulse Resp BP Pulse Ox 36.7 C 104 H 18 114/74 98 02/20/17 08:00 02/20/17 08:00 02/20/17 08:00 02/20/17 08:00 02/20/17 08:00 Microbiology 02/18/17 10:05 Urine Culture - Final Urine,Clean Catch Escherichia Coli Laboratory Results 02/19/17 04:30 02/20/17 05:00 02/19/17 02/20/17 02/21/17 06:59 06:59 06:59 Intake Total 1030 Output Total 200 340 Balance -200 690 PT 15.4 SEC (12.0-15.0) H 02/17/17 04:20 INR 1.22 (0.83-1.16) H 02/17/17 04:20 - Time Spent With Patient Time Spent with Patient: greater than 35 minutes Time Spent with Patient: Greater than 35 minutes spent on this patients care, greater than 50% of time spent counseling, educating, and coordinating care regarding the above mentioned plan. ICD10 Worksheet Patient Problems: Problems Problem Status Onset Dehydration Acute Weakness Acute Syncope Acute
[2017-02-20] MEDS ORDERED: IOPAMIDOL (ISOVUE 370) 100 ML BTL IV ONE (10:46)
[2017-02-20 11:10] LABS: COLOR YELLOW; LEUKOCYTE ESTERASE,URINE 3+ (NEGATIVE); NITRITE,URINE NEGATIVE (NEGATIVE)
[2017-02-20 11:14] LABS: BACTERIA 4+ /hpf (NONE SEEN); MUCUS TRACE /lpf (NONE-1+); RBC,URINE 25-50 /hpf (0-3); WBC,URINE 50-182 /hpf (0-3)
[2017-02-20] MEDS: WHITE WINE 120 ML BOTTLE PO SCH (19:30)
[2017-02-21 05:24] LABS: ANION GAP 7 mEq/L (8-16); CALCIUM 7.7 mg/dL (8.5-10.4); CARBON DIOXIDE 16 mEq/l (22-31); CHLORIDE 116 mEq/L (97-110); CREATININE 0.6 mg/dL (0.7-1.3); GLOMERULAR FILTRATION RATE > 60; GLUCOSE 77 mg/dL (70-100); POTASSIUM 3.3 mEq/L (3.5-5.2); SODIUM 139 mEq/L (134-144)
[2017-02-21] MEDS: ENOXAPARIN 40 MG/0.4 ML SYR SC SCH (10:02)
[2017-02-21] MEDS: THIAMINE HCL 500 MG in NS 100 ML IV SCH (10:03)
[2017-02-21] MEDS ORDERED: PROTOCOL POTASSIUM 1 DOSE MISC PRN (11:05)
[2017-02-21] MEDS ORDERED: POTASSIUM CL 10 MEQ TAB PO ONE ×2 (11:23→23:05)
--- NOTE | 2017-02-21 12:41 | HOSPPROG ---
Hospitalist Progress Note Assessment/Plan: DIAGNOSES: -persisting sinus tachycardia due to fluid losses from his diarrhea -Acute diarrheal illness with norovirus leading to dehydration and weakness, hypotension -acute on chronic bilateral leg weakness, with impaired mobility and inability to ambulate -acute metabolic acidosis possibly bicarbonate losses from diarrhea -hypotension, resolved with treatment here -sacral pressure injury, present on admission, remains as a blanching erythema without any further changes at this time -severe pyuria, question UTI, cultures pending -macrocytic anemia, chronic but aggravated by acute blood loss from his diarrheal illness -alcoholism, not willing to consider discontinuing alcohol in the long run PLANS: -further normal saline bolus and will start antidiarrheals on a scheduled basis to trying get better control of his fluid status -will start potassium pro all today -continue physical occupational therapy as he will allow -nutrition supplements -wound care for sacral pressure injury and preventive measures including nutritional therapy -thiamin replacement SUBJECTIVE: Ongoing watery diarrhea without abdominal pain or vomiting and without fever symptoms and no bleeding Today his main complaint is actually that the occupational therapist are getting too pushy to trying get him to participate OBJECTIVE Vitals reviewed: Tachycardia better after some IV fluids yesterday but he is tachycardic again this morning, otherwise stable without fever heel seat fitter sinus rhythm Exam: alert oriented looks very relaxed but tired skin warm dry color ok resps not labored lungs clear BSs heart regular but tachycardic abd soft nondistended nontender, bowel sounds present limbs warm, trace pedal edema iv site ok Lab data: Potassium low today CT scan of chest, I reviewed images: I see no sign of pulmonary emboli, heart failure, infiltrates. There is some minimal pleural effusion. Nothing else to explain his tachycardia Objective: Vital Signs Temp Pulse Resp BP Pulse Ox 36.5 C 110 H 14 93/65 L 99 02/21/17 12:00 02/21/17 12:00 02/21/17 12:00 02/21/17 12:00 02/21/17 12:00 Microbiology 02/18/17 10:05 Urine Culture - Final Urine,Clean Catch Escherichia Coli Laboratory Results 02/19/17 04:30 02/21/17 04:31 02/20/17 02/21/17 02/22/17 06:59 06:59 06:59 Intake Total 1030 800 Output Total 340 Balance 690 800 PT 15.4 SEC (12.0-15.0) H 02/17/17 04:20 INR 1.22 (0.83-1.16) H 02/17/17 04:20 ICD10 Worksheet Patient Problems: Problems Problem Status Onset Dehydration Acute Weakness Acute Syncope Acute
[2017-02-21] MEDS ORDERED: NS 1,000 ML IV ONE (12:42)
--- NOTE | 2017-02-21 14:52 | ASMTCMCOM ---
CM Note CM Note Notes: Pt still has tachycardia d/t fluid loss/diarrhea, no dc today. Updated niece Emma, and faxed updated notes to [facility]. DC Plan: [facility] Date Signed: 02/21/2017 02:51 PM Electronically Signed By:Charlene Coleman RN
[2017-02-21] MEDS: LOPERAMIDE HCL 2 MG CAP PO SCH ×2 (16:33→20:58)
[2017-02-21] MEDS: WHITE WINE 120 ML BOTTLE PO SCH (17:41)
[2017-02-21 19:28] LABS: POTASSIUM 3.7 mEq/L (3.5-5.2)
[2017-02-22 04:41] VITALS: PULSE 101
[2017-02-22] MEDS: LOPERAMIDE HCL 2 MG CAP PO SCH ×2 (04:45→12:44)
[2017-02-22 05:29] LABS: POTASSIUM 4.5 mEq/L (3.5-5.2)
[2017-02-22 08:33] VITALS: RESP 18
[2017-02-22] MEDS ORDERED: THIAMINE HCL 100 MG TAB PO SCH (09:00)
[2017-02-22] MEDS: ENOXAPARIN 40 MG/0.4 ML SYR SC SCH (09:49)
--- NOTE | 2017-02-22 15:16 | PDIAF ---
- Diagnosis Diagnosis: Nor overdose, dehydrationHypokalemia, chronic bilateral leg weakness , alcoh Code Status: Full Code - Medication Management Discharge Medications: Medications to Continue on Transfer Naproxen Sodium [Aleve 220 MG (*)] 440 mg PO DAILY PRN 02/16/17 [Last Taken Unknown] Enoxaparin [Lovenox 40 MG (*)] 40 mg SC DAILY syr 02/22/17 [Last Taken Unknown] LORazepam [Ativan (*)] 1 mg PO Q4HRS PRN tab 02/22/17 [Last Taken Unknown] Loperamide HCl [Imodium 2 mg (*)] 2 mg PO QID cap 02/22/17 [Last Taken Unknown] Ondansetron Odt [Zofran Odt 4 mg (*)] 4 mg PO Q4HRS PRN tab 02/22/17 [Last Taken Unknown] Thiamine HCl [Vitamin B-1] 100 mg PO DAILY tab 02/22/17 [Last Taken Unknown] Discharge Medications: Refer to the Discharge Home Medication list for PRN reason. - Orders Services needed: Registered Nurse, Certified Monitoring Engineer, Master Textile Examiner , Physical Therapy, Occupational Therapy Isolation Type: Contact Isolation, Droplet Isolation Diet Recommendation: no restrictions on diet Diet Texture: Regular Texture Diet Wound Care Instructions: Protective care for stage 1 erythema and sacrum Activity/Weight Bearing Restrictions: Full weightbear as able Equipment: Wheelchair - Follow Up Care Current Providers and Referrals: Addie Zamora MD [Primary Care Provider] - As per Instructions
[2017-02-22 15:28] VITALS: BP 115/70; TEMP 98.6; O2SAT 97
--- NOTE | 2017-02-22 16:48 | PDDCSUM ---
Discharge Summary Discharge Summary: DISCHARGE DIAGNOSES: -Acute diarrheal illness with norovirus leading to dehydration and weakness, hypotension -acute on chronic bilateral leg weakness, with impaired mobility and inability to ambulate -acute metabolic acidosis possibly bicarbonate losses from diarrhea -hypotension, resolved with treatment here -chronic sacral pressure injury, present on admission, remains as a blanching erythema -macrocytic anemia, chronic but aggravated by acute blood loss from his diarrheal illness -alcoholism, not willing to consider discontinuing alcohol in the long run PROCEDURES: CT scan of chest with contrast which showed no evidence of pulmonary emboli HOSPITAL COURSE SUMMARY: This patient comes to the hospital acute diarrheal illness, and worsening chronic weakness in his legs inability to care for himself. The patient is typically largely wheelchair-bound but independent for transfers. His diarrheal illness did not have fever nausea vomiting or abdominal pain but was found have a norovirus. He his diarrhea has gradually slow down but he still having some occasional loose stools now. He is eating well. He did require significant fluid resuscitation. There was electrolyte abnormalities that required repeated corrections due to GI losses here. At this time this is a stable issue and does not really require any ongoing medical care. The patient has severe bilateral leg weakness which is chronic, partly likely related to chronic alcohol disease and nutritional issues, partly from lack of physical activity in deconditioning. He has been treated with nutritional supplements and vitamin supplements here in the hospital. He has been treated with physical occupational therapy and has made some progress back towards his baseline but is not there yet and not really independent for transfers. Therefore he will be transferred from here to a longterm facility for further strength building and nutritional efforts. He did have as he arrived here some sacral erythema without open wounds and this persisted through his hospital stay and was followed closely by wound care and preventive measures. He is also found to have a macrocytic anemia which is probably largely due to his alcohol use in the past. This was stable during his hospital stay here and did not require treatment. There was some pyuria present but there were no symptoms and it was felt that this prior urine did not likely reflect true urinary tract infection. He was not treated for infection here and remains asymptomatic. A culture had been done in did grow a sensitive E coli such that if he does develop urinary symptoms, he could be treated with any antibiotic for sensitive E coli. PENDING TEST RESULTS: None MEDICATION CHANGES: None FOLLOW-UP PLAN: At this time he is transferred to longterm facility for ongoing physical therapy rehabilitation His care will be with the nursing staff and physicians on staff there, and return to primary care upon discharge to home Greater than 35 minutes bedside and care coordination time today
--- NOTE | 2017-02-22 17:25 | ASDISCHSUM ---
Discharge Information Plan Status:SNF Medically Cleared to Leave: Discharge Date:02/22/2017 04:16 PM CM D/C Disposition:[facility] Facility ADT D/C Disposition:[facility] Facility Projected Discharge Date:02/22/2017 11:00 AM Transportation at D/C:ALS/BLS Discharge Delay Reason: Follow-Up Date:02/22/2017 11:00 AM Discharge Slot: Final Diagnosis: Placement Information Referral Type:*Fpc/SNF Referral ID:[id number] Provider Name:[facility] Address 1:[address] Address 2: City:[place] Selection Factors: State:[place] Patient Contact Information Contact Name:DEBBIE Relationship:Reed Address: Work Phone: City: [facility] Phone: [facility]/Zip Code: Email: Financial Information Financial Class: Primary Plan Desc:MEDICARE INPATIENT Primary Plan Number:[id number] Secondary Plan Desc:AARP/MDR SUPPLEMENT Secondary Plan Number:[id number] Assessment Information LACE LACE Acuity / Level of Care Answers: Was the patient admitted to hospital via the emergency department? Yes: Emergency dept visits in Answers: 2 last 6 months Score: 5 Date Signed: 02/16/2017 02:19 PM Electronically Signed By:Isabell Castillo RN [facility] Progress Note CM Note CM Note Notes: Patient prefers to go by "Watson." Patient admitted for weakness, diarrhea x3 weeks, and overall decreased ability to care for himself including transferring into wheelchair or perform other ADLs. Patient brought into the ED by his niece, Emma, who is at bedside. Patient saw his PCP Dr. Addie Zamora this last week. Patient lives alone in a 1st floor apartment (has one step up to his front door) and has been using a wheelchair since he initially fractured his left foot last May 2016 and re-fractured it around October 2016. Patient also wears a walking boot on his left foot. Per Emma, patient normally wears depends and is unable to clean or bathe himself. Patient is an alcoholic and per Emma was drinking up to 60-70fl oz of white wine daily until about 3 weeks ago when he couldn't get it himself, so since then he has been drinking about 35 fl oz of white wine daily. Patient was admitted last 07/31/16 for syncopal episode and was discharged with PT/OT homecare services through [facility]. Pt also has worn a Holter monitor but never followed up with a director of casino. Patient also has been seen by a doctor at [facility] but can't remember the doctor's name. Exact DC needs unknown at this time, although per patient and Emma they would be open to the idea of a short term rehab placement in order for patient to regain strength. CM to follow. Date Signed: 02/16/2017 02:36 PM Electronically Signed By:Isabell Castillo RN [facility] Progress Note CM Note CM Note Notes: CM spoke w/ BANG Gurrola and Dr. Doherty regarding d/c POC. PT/OT is recommending SNF. CM met w/ pt for dispo planning. Pt reports that he is not interested in stopping his ETOH consumption. Pt would like to consult w/ his niece before making any decisions. CM called Emma and left a msg requesting a call back. CM spoke w/ Emma and she reports that she is the MDPOA and would be agreeable to having pt going to [facility] for SNF. CM to discuss w/ pt tomorrow about dispo plan. Plan: TBD Date Signed: 02/17/2017 04:58 PM Electronically Signed By:ZULEYMA Chahal [facility] CM Progress Note CM Note CM Note Notes: CM met w/ pt for dispo planning. Pt is agreeable to referral to [facility]. CM sent referral to [facility]. Selena from [facility] in today to assess pt. CM to follow. Plan: SNF; [facility] Date Signed: 02/18/2017 02:01 PM Electronically Signed By:ZULEYMA Chahal [facility] Progress Note CM Note CM Note Notes: CM spoke w/ Dr. Flores and BANG Coleman regarding d/c POC. CM met w/ pt for dispo planning and informed him that [facility] has accepted him. CM called pts reed Carter and informed her of pts dispo plan. CM to follow. Plan: [facility] Date Signed: 02/19/2017 02:14 PM Electronically Signed By:ZULEYMA Chahal [facility] CM Progress Note CM Note CM Note Notes: Pt still has tachycardia d/t fluid loss/diarrhea, no dc today. Updated reed Carter, and faxed updated notes to [facility]. DC Plan: [facility] Date Signed: 02/21/2017 02:51 PM Electronically Signed By:Charlene Coleman RN Case Management Discharge Plan Note Case Management Discharge Discharge Order Complete? Answers: Yes Patient to Obtain Answers: Other Notes: [facility] SNF Medications Transportation Arranged Answers: [facility] Stretch Case Management Transport Answers: Yes Notes: PCS completed for Form Complete Medicare stretcher Faxed Final Orders Answers: Yes Notes: via [employer] Agency/Facility Transfer Answers: No Report Printed & Faxed to Receiving Agency Family Notified Answers: Yes Notes: Nephew here and good wi th plan Discharge Comments Notes: Pt. d/c'ed today to [facility]. Completed non triggering PASRR. Sent d/c paperwork via [employer]. Consulted with BANG and [facility]. Pt. to d/c via stretcher due to his weakened state. Date Signed: 02/22/2017 03:46 PM Electronically Signed By:Isabell Austin LCSW Intervention Information
== END 2017-02-22 16:16 | DRG 392 ==
LOC: F3E 15:51
PROVIDERS: ADMIT Internal Medicine; ATTEND Internal Medicine
DX: A08.39 Other viral enteritis (principal); E87.1 Hypo-osmolality and hyponatremia; F10.20 Alcohol dependence, uncomplicated; L89.159 Pressure ulcer of sacral region, unspecified stage; D53.9 Nutritional anemia, unspecified; E87.2 Acidosis; Z99.3 Dependence on wheelchair; Z87.891 Personal history of nicotine dependence
CPT/HCPCS: 80307; 82607-90; 84134-90; 97110-GO; 97116-GP; 97162-GP; 97166-GO; 97530-GO; 97530-GP; 97535-GO; G0480; G8978-GP-CL; G8979-GP-CJ; G8987-GO-CL; G8988-GO-CK; J1650; J3411; Q9967

== ENCOUNTER 2017-03-04 10:36 | Inpatient (IN) | payer OTHER, MEDICARE ==
--- NOTE | 2017-03-04 10:48 | EDPHY ---
HPI/HX/ROS/PE/MDM Narrative: CHIEF COMPLAINT: Syncope, altered mental status HISTORY OF PRESENT ILLNESS: This patient is a 71 year old male arriving via EMS for evaluation of altered mental status following a near syncopal episode earlier this morning. He was going into the shower in his wheelchair when he suddenly slumped over. Per nurse 's summary of EMS report, there was no fall, no trauma, and no loss of consciousness. The patient seemed very confused following the incident. He sustained bilateral arm tears when he was lifted back into bed from his wheelchair. On direct questioning, the patient denies abdominal pain, chest pain , headache. He denies alcohol consumption. The patient was recently admitted for alcoholism and dehydration, discharged 10 days ago to [facility]. HPI difficult to obtain due to patient's altered mental status; he is a poor historian at this time. REVIEW OF SYSTEMS: ROS unobtainable due to patient's altered mental status. PAST MEDICAL HISTORY: 1. Alcohol abuse 2. Anemia 3. Anxiety Past medical records reviewed including admission 02/16/17 for alcoholism, dehydration. SOCIAL HISTORY: Lives at [facility]. VITAL SIGNS: Reviewed by me GENERAL: Well-developed, well-nourished, confused. Unable to follow simple commands, in no respiratory distress. HEENT: Atraumatic. Eyes: No icterus, no injection. PERRL. No nystagmus. Mouth : moist mucous membranes. No erythema or lesions. Neck: supple with no adenopathy. LUNGS: Clear to auscultation bilaterally, no wheezes, rhonchi or rales. CARDIAC: Regular rate and rhythm, no rubs, murmurs or gallops. ABDOMEN: Inconsistent abdominal pain in right abdomen. No rebound or guarding. Soft, nondistended, bowel sounds normal. BACK: No CVA tenderness. EXTREMITIES: Ecchymosis on both arms, skin tears bilaterally. No edema. DAVIS x 4 NEURO: Oriented to person. Unable to respond well to commands. Moving all four extremities. No obvious facial droop or weakness. SKIN: Warm and dry, no rash. PSYCHIATRIC: Unable to assess. No agitation. Portions of this note were transcribed by a biomedical service engineer. I personally performed a history, physical exam, medical decision making, and confirmed accuracy of information the transcribed note. ED Course: 71 year old male presents with altered mental status following an episode of near-syncope this morning. He is oriented to person but unable to respond well to commands. He is moving all four extremities. Exam reveals inconsistent abdominal pain and tenderness. Ecchymosis is present on on both arms, skin tears secondary to attempts to lift him from his wheelchair this morning. IV established. Plan for labs including CBC, chemistries, troponin, UA, EtOH, tox screen, coag. Plan for CT head. Plan for EKG, chest x-ray. 12-LEAD EKG: Please see the full report in [employer] [facility]. My interpretation: Sinus rhythm, rate 86. Borderline prolonged QT. 11:55 Patient's niece and nephew now at bedside. The patient reportedly had an episode of garbled speech lasting approximately one hour on Friday afternoon. The patient was not evaluated at that time, but was sent for laboratory studies. Currently, the patient's mentation has improved. His family states his baseline mental status waxes and wanes, but that his confusion this morning was unusual for him. No obvious laboratory abnormalities to account for AMS. CXR demonstrates no pneumonia but pleural effusion present. 12:[address] Mcgovern, radiologist. CT head negative for acute processes. 13:19 Consulted with hospitalist service. Dr. Flores accepts admission for altered mental status, near-syncope, r/o TIA/CVA. 14:01 UA positive for UTI. Plan to administer 1g IV Invanz. Sepsis NoteThe patient presents to the ED with urinary tract infection identified as an acute infection. The patient did not have evidence of sepsis. No fever, elevated hr, elevated RR, or elevated WBC. MDM: After the history was obtained and physical exam performed, the following differential for the patient's altered mental status was considered included but was not limited to hypoglycemia, electrolyte disturbances, intracranial hemorrhage, infection, tumor, drug or alcohol intoxication, stroke, or TIA. - Data Points Imaging Results: Impression: 1. No acute intracranial hemorrhage, subdural hematoma, or evidence of acute cortical ischemia. 2. Moderate atrophy and moderate supratentorial white matter disease. Findings discussed with Emergency Department physician, Dr. Seema Wasserman on March 04, 2017 at 1241 hours. CXR: Impression: New posterior right pleural effusion of undetermined etiology. Dictated By: Guillermo Fernández MD Imaging: Discussed imaging studies w/ body recall instructor Radiologist, I viewed and interpreted images myself Laboratory Results: Laboratory Results 03/04/17 11:10 03/05/17 04:20 Medications Given: Enoxaparin Sodium (Lovenox) 40 mg SC DAILY ELVIS Stop: 09/01/17 08:59 Last Admin: 03/06/17 09:49 Dose: 40 mg Lactated Ringer's (Lr) 1,000 mls @ 1,000 mls/hr IV CONT ELVIS Stop: 09/01/17 20:59 Last Admin: 03/05/17 21:06 Dose: 1,000 mls Cefepime HCl 1 gm/ Dextrose 50 mls @ 100 mls/hr IV Q12HRS ELVIS PRN Reason: Protocol Stop: 04/04/17 21:29 Last Admin: 03/06/17 09:49 Dose: 50 mls Discontinued Medications Cephalexin HCl (Keflex) 500 mg PO Q6H ELVIS PRN Reason: Protocol Stop: 04/03/17 19:59 Last Admin: 03/05/17 19:37 Dose: 500 mg Ertapenem (Invanz) 1 gm IVP EDNOW ONE PRN Reason: Protocol Stop: 03/04/17 14:09 Last Admin: 03/04/17 14:39 Dose: 1 gm Microbiology Results: MICROBIOLOGY 03/04/17 13:20 Urine,Clean Catch Urine Culture - Final Escherichia Coli General Time Seen by Provider: 03/04/17 10:45 Initial Vital Signs: Initial Vital Signs Temperature (C) 36.6 C 03/04/17 11:01 Heart Rate 84 03/04/17 11:01 Respiratory Rate 18 03/04/17 11:01 Blood Pressure 137/103 H 03/04/17 11:01 O2 Sat (%) 93 03/04/17 11:01 O2 Delivery Mode Room Air O2 (L/minute) 2 Allergies/Adverse Reactions: Penicillins Allergy (Verified 03/04/17 19:51) Other-Enter Comments Home Medications: Medication Instructions Recorded Naproxen Sodium [Aleve 220 MG (*)] 440 mg PO DAILY PRN 02/16/17 Nystatin Powder [Mycostatin Powder 1 siddharth TP DAILY PRN 03/04/17 (RX)] Departure - Departure Disposition: [facility] Acute Clinical Impression: Syncope Qualifiers: Syncope type: unspecified Qualified Code(s): R55 - Syncope and collapse UTI (urinary tract infection) Qualifiers: Urinary tract infection type: acute cystitis Hematuria presence: without hematuria Qualified Code(s): N30.00 - Acute cystitis without hematuria Altered mental status Qualifiers: Altered mental status type: disorientation Qualified Code(s): R41.0 - Disorientation, unspecified Condition: Fair Report Scribed for: Seema Wasserman Report Scribed by: Dorinda Jaimes Date of Report: 03/04/17 Time of Report: 10:56
--- NOTE | 2017-03-04 10:49 | CPEKG ---
Heart Rate: 86 RR Interval: 698 P-R Interval: 165 QRSD Interval: 70 QT Interval: 412 QTC Interval: 493 P Deepwater: 67 QRS Deepwater: 27 T Wave Deepwater: 54 EKG Severity - BORDERLINE ECG - EKG Impression: SINUS RHYTHM EKG Impression: LOW VOLTAGE IN FRONTAL LEADS EKG Impression: BORDERLINE PROLONGED QT INTERVAL Electronically Signed By: Ryan Ortiz 06-Mar-2017 05:33:39
[2017-03-04 11:18] LABS: % IMMATURE GRANULYOCYTES 0.5 % (0.0-1.1); ABSOLUTE IMMATURE GRANULOCYTES 0.03 10^3/uL (0.00-0.10); ADD DIFF? NO; ADD MORPH? NO; ADD SCAN? NO; ATYPICAL LYMPHOCYTE FLAG 60 (0-99); FRAGMENT RBC FLAG 0 (0-99); HEMATOCRIT 32.2 % (40.0-51.0); HEMOGLOBIN 11.1 g/dL (13.7-17.5); LEFT SHIFT FLG 0 (0-99); LIPEMIA HEMOLYSIS FLAG 90 (0-99); MEAN CELL HEMOGLOBIN 38.7 pg (27.9-34.1); MEAN CELL HEMOGLOBIN CONCENTR. 34.5 g/dL (32.4-36.7); MEAN CELL VOLUME 112.2 fL (81.5-99.8); MEAN PLATELET VOLUME 9.2 fL (8.7-11.7); PLATELET CLUMPS FLAG 0 (0-99); PLATELET COUNT 177 10^3/uL (150-400); RED BLOOD CELL COUNT 2.87 10^6/uL (4.40-6.38); RED CELL DISTRIBUTION WIDTH 12.9 % (11.5-15.2)
[2017-03-04 11:27] LABS: INR 1.17 (0.83-1.16); PROTIME(PATIENT) 15.1 SEC (12.0-15.0)
[2017-03-04 11:40] LABS: ANION GAP 10 mEq/L (8-16); CALCIUM 8.2 mg/dL (8.5-10.4); CARBON DIOXIDE 23 mEq/l (22-31); CHLORIDE 104 mEq/L (97-110); CREATININE 0.7 mg/dL (0.7-1.3); GLOMERULAR FILTRATION RATE > 60; GLUCOSE 88 mg/dL (70-100); POTASSIUM 4.2 mEq/L (3.5-5.2); SODIUM 137 mEq/L (134-144)
[2017-03-04 11:47] LABS: ETHANOL SERUM < 10 mg/dL (0-10)
[2017-03-04 11:50] LABS: TROPONIN I < 0.012 ng/mL (0.000-0.034)
[2017-03-04 13:38] LABS: COLOR YELLOW; LEUKOCYTE ESTERASE,URINE 3+ (NEGATIVE); NITRITE,URINE POSITIVE (NEGATIVE)
[2017-03-04] MEDS ORDERED: ONDANSETRON 4 MG/2 ML VIAL IVP PRN (13:44)
[2017-03-04] MEDS ORDERED: ACETAMINOPHEN 325 MG TAB PO PRN (13:44)
[2017-03-04 13:45] LABS: BACTERIA 2+ /hpf (NONE SEEN); WBC,URINE 50-182 /hpf (0-3)
[2017-03-04] MEDS ORDERED: ERTAPENEM 1 GM VIAL IVP ONE (14:08)
--- NOTE | 2017-03-04 15:26 | ASMTCMCOM ---
CM Note CM Note Notes: Patient admitted for syncopal episode this morning, needs continuing monitoring and observation. Patient coming from [facility] (been there since d/c'd from [facility] on 02/22/17). Patient accompanied by niece, Emma (pt's MDPOA) and her . MOODY form signed by Emma at bedside, copy provided to Emma. Anticipate patient will dc back to [facility]. CM to follow. Date Signed: 03/04/2017 03:26 PM Electronically Signed By:Isabell Castillo RN
--- NOTE | 2017-03-04 17:29 | PDGENHP ---
History and Physical History and Physical: CC: Near-syncope or syncope today HISTORY: This patient who had been at this hospital just recently, and had been recovering quite well according to his story today. Today he was noticed to suddenly slump over in his wheelchair while on way to shower and was poorly responsive. The patient does not remember this occurring but does remember waking up in the name is on the way to the hospital. He does not remember feeling ill in any way prior to this episode today but I notice that he is somewhat confused and I do not think the history were getting is entirely reliable from the patient. It is not entirely clear to me whether the patient actually lost consciousness are not from the information available. At this time the patient feels fine and does not think he is ill. The only symptom out of the ordinary for him that I can define is that he does admit to having some urinary incontinence and unpredictability of when he will have to a empty is your bladder. He does admit to occasional discomfort passing urine e but is not able to describe but clearly to me. He was here recently with a diarrheal illness caused by Norovirus, and says his diarrhea has completely resolved and he has been eating well the. At that time he was noted to have a stage I sacral erythema present on admission, and was treated by wound care nurses for that. He says he does not have any pain or discomfort rather she is at that area now. 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 I have reviewed the list and ordered appropriate medicines. PHYSICAL EXAMINATION: Vital Signs: Some diastolic hypertension otherwise stable without fever Youth Liaison Officer: Sinus rhythm Examination: General: alert, talkative, oriented to person and to place to situation, but there is some confusion as the trying go through his history today Skin: warm, dry, good color, no rash; I did examine his sacral and buttock area and I do not see any evidence of pressure induced injury at this time HEENT: normal Neck: no mass or jvd Resps: relaxed Lungs: clear breath sounds Heart: regular, no murmur Abdomen: soft, nondistended, nontender, +BS, no mass Upper Extremities: normal Lower Extremities: no edema, warm No Bleeding or bruising Neurologic: normal speech/language, normal shoe parts caser, no focal weakness IV site: looks normal LABORATORY DATA: Macrocytic anemia which is chronic for him, and mild, otherwise unremarkable CBC Serum chemistry unremarkable RADIOLOGY STUDIES: I reviewed the CT images with Dr. Mcgovern radiology, no evidence of stroke, hemorrhage, mass, other cancer Ed 12 LEAD EKG: My interpretation of the tracing done in the ER is a normal 12 lead EKG was sinus rhythm ASSESSMENT: # near-syncope today at home with confusion since that time -the cause of this is uncertain. No definite evidence of cardiac or neurologic episode at this time # pyuria with some urinary symptoms, uncertain significance or etiology -notably he had pyuria during his previous hospital stay last month and did not have any symptoms with that and it was not treated; consider that he may have infection at this time and will treat empirically until culture results back # recent neuro virus infection last month appears to have resolved but will watch closely for the any sign of ongoing issues # stage I sacral pressure induced erythema that was present and the time of admission at for his January stay here appears to have resolved at this time # severe gait instability and is largely wheelchair bound which is chronic for him and sounds like it stable # chronic alcohol abuse, received thiamin therapy during his last admission here , is not drinking nearly as much now as best I can tell as what he has in the past PLANS: -observe on cloth calender -echocardiogram -will treat empirically with antibiotics for possible urinary tract infection -physical therapy and occupational therapy consult, fall risk precautions -preventive measures for skin care -other measures based on his progress and findings of the above I have reviewed the patient's case in detail with Dr. Wasserman I have reviewed the patient's past medical records as part of this assessment, including previous hospital admission records
[2017-03-04] MEDS: CEPHALEXIN 500 MG CAP PO SCH (20:16)
[2017-03-05] MEDS: CEPHALEXIN 500 MG CAP PO SCH ×4 (02:42→19:37)
[2017-03-05 05:54] LABS: ANION GAP 12 mEq/L (8-16); CARBON DIOXIDE 22 mEq/l (22-31); CHLORIDE 104 mEq/L (97-110); CREATININE 0.6 mg/dL (0.7-1.3); GLOMERULAR FILTRATION RATE > 60; GLUCOSE 71 mg/dL (70-100); MAGNESIUM 1.5 mg/dL (1.6-2.3); POTASSIUM 3.7 mEq/L (3.5-5.2); SODIUM 138 mEq/L (134-144)
[2017-03-05] MEDS: ENOXAPARIN 40 MG/0.4 ML SYR SC SCH (08:21)
--- NOTE | 2017-03-05 10:43 | ASMTCMCOM ---
CM Note CM Note Notes: Patient admitted from [facility] where he has been rehabing. Spoke with Selena at [facility], notified patient was admitted Obs. Information sent via iCurrent. [facility] able to accept back when patient is medically stable. Case Management will continue to follow. Date Signed: 03/05/2017 10:42 AM Electronically Signed By:Nisha Gaona RN
--- NOTE | 2017-03-05 16:36 | ECHO ---
[email or web address] [address] [address] Main: [phone] Fax: Transthoracic Echocardiogram Name: MELODY CASTILLO MR#: [id number] Study Date: 03/05/2017 Study Time: 09:35 AM Date of : 1945 Age: 71 year(s) Height: 180.3 cm (71 in.) Weight: 73.03 kg (161 lb.) BSA: 1.92 m2 Gender: Male Examination: Echo Indication: Cardiac: syncope Image Quality: Contrast: Requested by: Pedro Flores BP: 126 mmHg/72 mmHg Heart Rate: Rhythm: Indication: Cardiac: syncope Procedure Staff Wine Specialist: Marcelina Garcia Reading Physician: Omid Berg Requesting Provider: Conclusions: Global hypercontractility of the left ventricle. The ejection fraction is visually estimated to be 70 %. The left atrium is normal in size. The right atrium is normal in size. The mitral valve is normal in appearance and function. The aortic valve is normal in appearance and function. Small pericardial effusion. No echocardiographic evidence of hemodynamic compromise. The image quality was rather poor. There is at least a "mild" pericardial effusion. I did not appreciate RV/RA collapse which would be indicative of tamponade physiology. Would consider repeat echo (limited) tomorrow for reassessment of the noted pathology. Measurements: Chambers Valvular Assessment AV/MV Valvular Assessment TV/PV Normal Normal Normal Name Value Range Name Value Range Name Value Range Ao Lauren (MM): 4.0 cm (2.2 cm-3.7 AV Vmax: 0.87 m/s (1 m/s-1.7 cm) m/s) LVDd (2D): 4.4 cm (4.2 cm-5.9 AV maxP mmHg ( - ) cm) MV E Vmax: 0.98 m/s ( - ) Visual EF: 70 % Continued Measurements: Valvular Assessment AV/MV Name Value MV E/E' Septal: 20.20 MV E/E' Lateral: 18.30 Patient: MELODY CASTILLO Study Date: 03/05/2017 Page 1 of 2 09:35 AM Findings: Left Ventricle: Normal size left ventricle. No LV hypertrophy. Global hypercontractility of the left ventricle. The ejection fraction is visually estimated to be 70 %. No regional wall motion abnormality. Right Ventricle: Normal size right ventricle. Left Atrium: The left atrium is normal in size. Right Atrium: The right atrium is normal in size. Mitral Valve: The mitral valve is normal in appearance and function. Aortic Valve: The aortic valve is normal in appearance and function. Tricuspid Valve: The tricuspid valve is normal in appearance and function. Pulmonic Valve: Pulmonary valve not well visualized. Aorta: The aorta is normal. Pericardium: Small pericardial effusion. No echocardiographic evidence of hemodynamic compromise. Trivial pericardial effusion with echogenicity within.. (No Signature Object) Patient: MELODY CASTILLO Study Date: 03/05/2017 Page 2 of 2 09:35 AM [id number]
--- NOTE | 2017-03-05 19:09 | HOSPPROG ---
Hospitalist Progress Note Assessment/Plan: DIAGNOSES: # new onset of sinus tachycardia today, of uncertain etiology, with stable blood pressures, no shortness of breath or hypoxemia and no fever -given his immobility would rule out for PE, I did get a D-dimer which is high so will get a CT -wonder whether he was drinking again as he left the hospital previously and he might be having some alcohol withdrawal at this time, no tremor but will watch closely # acute encephalopathy -multiple potential causes, he is not at the baseline I recall from his stay here last month but does have some chronic neurologic mentation issues # near-syncope -the cause of this is uncertain. No definite evidence of cardiac or neurologic episode at this time # pyuria with some urinary symptoms, uncertain significance or etiology -gram-negative simin growing in urine not yet identified -notably he had pyuria during his previous hospital stay last month and did not have any symptoms with that and it was not treated; consider that he may have infection at this time and will treat empirically until culture results back # recent norovirus infection last month appears to have resolved but will watch closely for the any sign of ongoing issues # stage I sacral pressure induced erythema that was present and the time of admission for his January stay here appears to have resolved at this time # severe chronic gait instability and is largely wheelchair bound which is chronic for him and sounds like it stable # chronic alcohol abuse, received thiamin therapy during his last admission here , he tells me he has had nothing to drink for nearly a month but given his confusion unclear what really happened PLANS: Stat CT scan Follow closely for anything that looks more like alcohol withdrawal, consider treating that Continue empiric antibiotics and follow his urine culture Continue cardiac EKG monitoring SUBJECTIVE: Patient says he feels quite well. Denies any shortness of breath, chest pain, leg pain, leg swelling, chills or sweats, nausea, says he is eating well. 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 skin warm dry color ok resps not labored lungs clear BSs heart regular abd soft nondistended nontender, bowel sounds present limbs warm, no edema iv site ok Laboratory data I ordered a D-dimer which has come back elevated Objective: Vital Signs Temp Pulse Resp BP Pulse Ox 36.9 C 99 18 110/81 H 94 03/05/17 15:20 03/05/17 15:20 03/05/17 15:20 03/05/17 15:20 03/05/17 15:20 Laboratory Results 03/05/17 04:20 03/04/17 03/05/17 03/06/17 06:59 06:59 06:59 Intake Total 300 500 Balance 300 500 PT 15.1 SEC (12.0-15.0) H 03/04/17 11:03 INR 1.17 (0.83-1.16) H 03/04/17 11:03 ICD10 Worksheet Patient Problems: Problems Problem Status Onset Dehydration Acute Syncope Acute Weakness Acute
[2017-03-05] MEDS ORDERED: IOPAMIDOL (ISOVUE 370) 100 ML BTL IV ONE (19:59)
[2017-03-05] MEDS ORDERED: LR 1,000 ML IV SCH (21:00)
[2017-03-05] MEDS: CEFEPIME HCL 1 GM in D5W 50 ML IV SCH (21:21)
[2017-03-05 21:42] LABS: ANION GAP 7 mEq/L (8-16); CALCIUM 7.7 mg/dL (8.5-10.4); CARBON DIOXIDE 23 mEq/l (22-31); CHLORIDE 103 mEq/L (97-110); CREATININE 0.8 mg/dL (0.7-1.3); GLOMERULAR FILTRATION RATE > 60; GLUCOSE 101 mg/dL (70-100); POTASSIUM 3.6 mEq/L (3.5-5.2); SODIUM 133 mEq/L (134-144)
[2017-03-06] MEDS: CEFEPIME HCL 1 GM in D5W 50 ML IV SCH ×2 (09:49→20:21)
[2017-03-06] MEDS: ENOXAPARIN 40 MG/0.4 ML SYR SC SCH (09:49)
--- NOTE | 2017-03-06 10:25 | PDMN ---
Medical Necessity Medical necessity: change to IP; est los>2mn for eval and rx of hypotension and tachycardia of unknown cause, r/o PE, acute encephalopathy, pyuria, ; requires stat CT, monitor for etoh withdrawal, continue abx and follow urine cx, and telemetry; comorbid pressure ulcer, gait instability, and etoh abuse; per order and progress note 03/05/17
[2017-03-06 16:20] LABS: ANION GAP 6 mEq/L (8-16); CALCIUM 7.7 mg/dL (8.5-10.4); CARBON DIOXIDE 24 mEq/l (22-31); CHLORIDE 105 mEq/L (97-110); CREATININE 0.8 mg/dL (0.7-1.3); GLOMERULAR FILTRATION RATE > 60; GLUCOSE 97 mg/dL (70-100); POTASSIUM 3.9 mEq/L (3.5-5.2); SODIUM 135 mEq/L (134-144)
--- NOTE | 2017-03-06 19:34 | HOSPPROG ---
Hospitalist Progress Note Assessment/Plan: DIAGNOSES: # suspect onset of acute sepsis last night causing tachycardia and fever, responding so far at a fluid resuscitation and antibiotic # UTI present on admission, pansensitive E coli, likely cause of sepsis and encephalopathy # acute encephalopathy -currently resolved -multiple potential causes # near-syncope -no arrhythmia or other cardiac abnormalities here so far, suspect may have been due to his infection # recent norovirus infection last month appears to have resolved but will watch closely for the any sign of ongoing issues # stage I sacral pressure induced erythema that was present admission here in January appears to have resolved at this time # chronic bilateral leg weakness and gait instability: Is now back to his baseline, much better than when he left here after his January admission # chronic alcohol abuse, received thiamin therapy during his last admission here , has had no alcohol since his discharge March 04 and doing well. PLANS: Continue EKG monitoring due to his near syncope Continue antibiotic for E coli urinary tract infection Follow vital signs closely Continue physical occupational therapy care Anticipate potentially back to [facility] tomorrow March 07 SUBJECTIVE: States he feels better overall No particular pains or discomforts, no shortness of breath Continues to do well in terms of physical activity, eating OBJECTIVE Vitals reviewed: Last night developed significant tachycardia with sinus heart rate in the 130s and blood pressure down into the 80s over 50s, responded well to IV fluid boluses and changed to IV antibiotics, still with sinus heart rate in 90s which 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, my review: Sinus rhythm Exam: Now clearly more alert and back to his baseline mentation, a appears to have complete resolution of the confusion that was noted at admission skin warm dry color ok resps not labored lungs clear BSs heart regular abd soft nondistended nontender, bowel sounds present limbs warm, no edema iv site ok CT scan done last night of chest, my personal review of images: no PE no other acute explanations for his hypotension or tachycardia at the time Urine culture now growing a pansensitive E coli Basic met panel today stable renal function and electrolytes Objective: Vital Signs Temp Pulse Resp BP Pulse Ox 36.3 C 97 19 103/65 98 03/06/17 15:59 03/06/17 15:59 03/06/17 15:59 03/06/17 15:59 03/06/17 15:59 Laboratory Results 03/06/17 15:45 03/05/17 03/06/17 03/07/17 06:59 06:59 06:59 Intake Total 1350 290 Balance 1350 290 PT 15.1 SEC (12.0-15.0) H 03/04/17 11:03 INR 1.17 (0.83-1.16) H 03/04/17 11:03 ICD10 Worksheet Patient Problems: Problems Problem Status Onset Altered mental status Acute Syncope Acute UTI (urinary tract infection) Acute Dehydration Acute Weakness Acute
[2017-03-07 05:29] LABS: % IMMATURE GRANULYOCYTES 0.3 % (0.0-1.1); ABSOLUTE IMMATURE GRANULOCYTES 0.01 10^3/uL (0.00-0.10); ADD DIFF? NO; ADD MORPH? NO; ADD SCAN? NO; ATYPICAL LYMPHOCYTE FLAG 40 (0-99); FRAGMENT RBC FLAG 0 (0-99); HEMATOCRIT 27.5 % (40.0-51.0); HEMOGLOBIN 9.3 g/dL (13.7-17.5); LEFT SHIFT FLG 0 (0-99); LIPEMIA HEMOLYSIS FLAG 90 (0-99); MEAN CELL HEMOGLOBIN 37.2 pg (27.9-34.1); MEAN CELL HEMOGLOBIN CONCENTR. 33.8 g/dL (32.4-36.7); MEAN PLATELET VOLUME 9.6 fL (8.7-11.7); PLATELET CLUMPS FLAG 0 (0-99); PLATELET COUNT 172 10^3/uL (150-400); RED CELL DISTRIBUTION WIDTH 13.1 % (11.5-15.2)
[2017-03-07 05:46] LABS: ANION GAP 5 mEq/L (8-16); CALCIUM 7.8 mg/dL (8.5-10.4); CARBON DIOXIDE 26 mEq/l (22-31); CHLORIDE 105 mEq/L (97-110); CREATININE 0.7 mg/dL (0.7-1.3); GLOMERULAR FILTRATION RATE > 60; GLUCOSE 78 mg/dL (70-100); POTASSIUM 3.5 mEq/L (3.5-5.2); SODIUM 136 mEq/L (134-144)
[2017-03-07] MEDS: CEFEPIME HCL 1 GM in D5W 50 ML IV SCH (08:23)
[2017-03-07] MEDS: ENOXAPARIN 40 MG/0.4 ML SYR SC SCH (08:23)
--- NOTE | 2017-03-07 13:14 | PDIAF ---
- Diagnosis Diagnosis: UTI Code Status: Full Code - Medication Management Discharge Medications: Medications to Continue on Transfer Naproxen Sodium [Aleve 220 MG (*)] 440 mg PO DAILY PRN 02/16/17 [Last Taken Unknown] Nystatin Powder [Mycostatin Powder] 1 siddharth TP DAILY PRN 03/04/17 [Last Taken Unknown] levOFLOXACIN [levAQUIN (*)] 750 mg PO DAILY AT 10AM #8 tab 03/07/17 [Last Taken Unknown] Discharge Medications: Refer to the Discharge Home Medication list for PRN reason. - Orders Services needed: Registered Nurse, Physical Therapy, Occupational Therapy Isolation Type: None Diet Recommendation: no restrictions on diet - Follow Up Care Current Providers and Referrals: Addie Zamora MD [Primary Care Provider] - As per Instructions
--- NOTE | 2017-03-07 15:02 | ASMTCMCOM ---
CM Note CM Note Notes: Patient dc held as RN informed MD of patient having diarrhea. Stool sample sent to lab. Plan to [facility] when deemed medically stable.CM to follow. Date Signed: 03/07/2017 03:02 PM Electronically Signed By:Milli Kinsey RN
[2017-03-07] MEDS ORDERED: NS 500 ML IV ONE ×2 (16:40)
--- NOTE | 2017-03-07 16:45 | HOSPPROG ---
Hospitalist Progress Note Assessment/Plan: UTI with pansensitive E coli on UCx - No BCx data. No leukocytosis, lactate nl , afebrile. -changed to oral Levaquin Hypotension - in setting of new diarrhea and poor oral intake, suspect volume depletion. +orthostatic. -bolus 1L NS -cont LR maintenance fluids -check am cortisol Diarrhea - had norovirus last month. RN reports multiple episodes of diarrhea today. -GI pathogen panel sent -fluids as above Acute encephalopathy - improved Pre-syncope - suspect related to orthostasis as above. -volume resuscitation H/O sacral pressure injury Gait instability - likely to return to SNF Alcohol abuse - no e/o withdrawal, monitor Full code DVT PPLX - lovenox Dispo - cont inpt Subjective: Pt feels fine. No complaints. Objective: Vital Signs Temp Pulse Resp BP Pulse Ox 36.6 C 95 17 95/68 L 96 03/07/17 15:55 03/07/17 15:55 03/07/17 15:55 03/07/17 15:55 03/07/17 15:55 Laboratory Results 03/07/17 04:39 03/07/17 04:39 03/06/17 03/07/17 03/08/17 05:59 05:59 05:59 Intake Total 2908 870 3848 Balance 0364 422 3036 PT 15.1 SEC (12.0-15.0) H 03/04/17 11:03 INR 1.17 (0.83-1.16) H 03/04/17 11:03 - Physical Exam Constitutional: no apparent distress Eyes: PERRL Ears, Nose, Mouth, Throat: moist mucous membranes Cardiovascular: regular rate and rhythym Respiratory: no respiratory distress, clear to auscultation Gastrointestinal: normoactive bowel sounds, soft, non-tender abdomen Skin: warm Musculoskeletal: full muscle strength Neurologic: AAOx3 Psychiatric: poor insight ICD10 Worksheet Patient Problems: Problems Problem Status Onset Altered mental status Acute Syncope Acute UTI (urinary tract infection) Acute Dehydration Acute Weakness Acute
[2017-03-07] MEDS: LR 1,000 ML IV SCH (19:53)
[2017-03-07] MEDS ORDERED: CEFEPIME HCL 1 GM in NS 50 ML IV SCH (21:00)
[2017-03-08 05:48] LABS: ANION GAP 9 mEq/L (8-16); CALCIUM 7.8 mg/dL (8.5-10.4); CARBON DIOXIDE 22 mEq/l (22-31); CHLORIDE 105 mEq/L (97-110); CREATININE 0.6 mg/dL (0.7-1.3); GLOMERULAR FILTRATION RATE > 60; GLUCOSE 83 mg/dL (70-100); POTASSIUM 3.5 mEq/L (3.5-5.2); SODIUM 136 mEq/L (134-144)
[2017-03-08 06:11] LABS: CORTISOL-AM 7.4 ug/dL (4.5-22.7)
[2017-03-08] MEDS ORDERED: COSYNTROPIN 0.25 MG/2 ML SYRINGE IVP ONE (07:00)
[2017-03-08] MEDS: ENOXAPARIN 40 MG/0.4 ML SYR SC SCH (07:34)
--- NOTE | 2017-03-08 13:07 | HOSPPROG ---
Hospitalist Progress Note Assessment/Plan: UTI with pansensitive E coli on UCx - No BCx data. No leukocytosis, lactate nl , afebrile. -changed to oral Levaquin Hypotension - in setting of new diarrhea and poor oral intake, suspect volume depletion. Still orthostatic, but BP's improved and no longer symptomatic. He responded to fluid bolus yesterday -cosyntropin stim normal -repeat NS bolus today, suspect still volume depleted -cont LR maintenance fluids -consider addition of midodrine if not improving with fluids Diarrhea - had norovirus last month. RN reports multiple episodes of diarrhea today. GI pathogen panel negative. -fluids, supportive care -prn immodium Acute encephalopathy - improved Pre-syncope - suspect related to orthostasis as above, resolved today. -volume resuscitation H/O sacral pressure injury Gait instability - likely to return to SNF Alcohol abuse - no e/o withdrawal, monitor Full code DVT PPLX - lovenox Dispo - cont inpt Subjective: Pt feels okay. Denies lightheadedness or dizziness today. No fevers/chills. No CP, SOB, abdominal pain or urinary symptoms. He is incontinent of urine. Objective: Vital Signs Temp Pulse Resp BP Pulse Ox 36.8 C 129 H 11 L 89/59 L 98 03/08/17 11:38 03/08/17 11:38 03/08/17 11:38 03/08/17 11:38 03/08/17 11:38 Microbiology 03/07/17 14:30 Gastrointestinal Tract Panel (PCR) - Final Stool No Organism Detected Laboratory Results 03/07/17 04:39 03/08/17 04:30 03/07/17 03/08/17 03/09/17 05:59 05:59 05:59 Intake Total 590 1989 Balance 590 1989 PT 15.1 SEC (12.0-15.0) H 03/04/17 11:03 INR 1.17 (0.83-1.16) H 03/04/17 11:03 - Physical Exam Constitutional: no apparent distress Eyes: PERRL Ears, Nose, Mouth, Throat: moist mucous membranes Cardiovascular: regular rate and rhythym Respiratory: no respiratory distress Gastrointestinal: normoactive bowel sounds, soft, non-tender abdomen Skin: warm Musculoskeletal: full muscle strength Neurologic: AAOx3 Psychiatric: interacting appropriately ICD10 Worksheet Patient Problems: Problems Problem Status Onset Altered mental status Acute Syncope Acute UTI (urinary tract infection) Acute Dehydration Acute Weakness Acute
[2017-03-08] MEDS ORDERED: LOPERAMIDE HCL 2 MG CAP PO PRN (13:10)
[2017-03-08] MEDS ORDERED: NS 500 ML IV ONE ×2 (13:10→13:12)
--- NOTE | 2017-03-08 13:36 | CPEKG ---
Heart Rate: 92 RR Interval: 652 P-R Interval: 164 QRSD Interval: 66 QT Interval: 396 QTC Interval: 490 P [place]: 70 QRS [place]: 15 T Wave [place]: 61 EKG Severity - BORDERLINE ECG - EKG Impression: SINUS RHYTHM EKG Impression: VENTRICULAR PREMATURE COMPLEX EKG Impression: LOW VOLTAGE IN FRONTAL LEADS EKG Impression: BORDERLINE PROLONGED QT INTERVAL Electronically Signed By: Aleisha Maza 08-Mar-2017 14:15:44
[2017-03-08] MEDS: LR 1,000 ML IV SCH (15:54)
[2017-03-09 07:25] VITALS: BP 147/97; RESP 11; TEMP 98.3; O2SAT 95
[2017-03-09] MEDS: ENOXAPARIN 40 MG/0.4 ML SYR SC SCH (07:49)
--- NOTE | 2017-03-09 11:31 | PDIAF ---
- Diagnosis Diagnosis: UTI Code Status: Full Code - Medication Management Discharge Medications: Medications to Continue on Transfer Naproxen Sodium [Aleve 220 MG (*)] 440 mg PO DAILY PRN 02/16/17 [Last Taken Unknown] Nystatin Powder [Mycostatin Powder] 1 siddharth TP DAILY PRN 03/04/17 [Last Taken Unknown] levOFLOXACIN [levAQUIN (*)] 750 mg PO DAILY #3 tab 03/09/17 [Last Taken Unknown] Discharge Medications: Refer to the Discharge Home Medication list for PRN reason. - Orders Services needed: Registered Nurse, Physical Therapy, Occupational Therapy Isolation Type: None Diet Recommendation: no restrictions on diet - Follow Up Care Current Providers and Referrals: Addie Zamora MD [Primary Care Provider] - As per Instructions
[2017-03-09 12:01] VITALS: PULSE 113
--- NOTE | 2017-03-09 16:20 | ASDISCHSUM ---
Discharge Information Plan Status:SNF Medically Cleared to Leave:03/08/2017 Discharge Date:03/09/2017 02:40 PM CM D/C Disposition:Prison Facility ADT D/C Disposition:Prison Facility Projected Discharge Date:03/09/2017 11:00 AM Transportation at D/C:Wheelchair Van Discharge Delay Reason: Follow-Up Date:03/09/2017 11:00 AM Discharge Slot: Final Diagnosis: Placement Information Referral Type:*Detention/SNF Referral ID:[facility]-[id number] Provider Name:[facility] Address 1:[address] Address 2: City:[place] Selection Factors: State:[place] Patient Contact Information Contact Name:DEBBIE Relationship:Mary Kay Address: Work Phone: City: [facility] Phone: [facility]/Zip Code: Email: Financial Information Financial Class: Primary Plan Desc:MEDICARE INPATIENT Primary Plan Number:[id number] Secondary Plan Desc:[employer]ARP/MDR SUPPLEMENT Secondary Plan Number:[id number] Assessment Information [facility] CM Progress Note CM Note CM Note Notes: Patient admitted for syncopal episode this morning, needs continuing monitoring and observation. Patient coming from [facility] (been there since d/c'd from [facility] on 02/22/17). Patient accompanied by Emma mcbride (pt's JIMOA) and her . MOODY form signed by Emma at bedside, copy provided to Emma. Anticipate patient will dc back to [facility]. CM to follow. Date Signed: 03/04/2017 03:26 PM Electronically Signed By:Isabell Castillo RN LACE LACE Acuity / Level of Care Answers: Was the patient admitted to hospital via the emergency department? Yes: Emergency dept visits in Answers: 2 last 6 months Score: 5 Date Signed: 03/04/2017 03:27 PM Electronically Signed By:Isabell Castillo RN [facility] CM Progress Note CM Note CM Note Notes: Patient admitted from [facility] where he has been rehabing. Spoke with Selena at [facility], notified patient was admitted Obs. Information sent via [employer]. [facility] able to accept back when patient is medically stable. Case Management will continue to follow. Date Signed: 03/05/2017 10:42 AM Electronically Signed By:Nisha Gaona RN [facility] CM Progress Note CM Note CM Note Notes: Patient dc held as RN informed MD of patient having diarrhea. Stool sample sent to lab. Plan to [facility] when deemed medically stable.CM to follow. Date Signed: 03/07/2017 03:02 PM Electronically Signed By:Milli Kinsey RN Intervention Information Intervention Type:*MOODY-Signed Date of Service:03/04/2017 03:27 PM Patient Type:Observation Staff Member:BANG Castillo, Isabell Hours:0.25 Discipline:Switchboard Manager Severity: Comment:MOODY form explained to patient's niece and Emma HAMMER, at patient's bedside. Emma signed form; copy provided to her and original given to tech to give to floor's unit coordinat or to place in patient's chart. Intervention Type:*MOODY-Signed Date of Service:03/05/2017 09:06 AM Patient Type:Observation Staff Member:Jennifer Putnam Hours: Discipline: Severity: Comment:
--- NOTE | 2017-03-10 02:28 | GDS ---
[f rep st] DISCHARGE SUMMARY DISCHARGE DIAGNOSES: 1. Urinary tract infection. 2. Hypotension secondary to volume depletion, improved. 3. Diarrhea, resolved. 4. Acute encephalopathy, resolved. 5. Presyncope, improved. 6. Gait instability. 7. History of alcohol abuse. CONSULTANTS: None. HISTORY OF DETAILS: Please see the history and physical dated March 04, 2017. In brief, the max fredo is a 71-year-old male who presented to the emergency department from a half-way facility w [facility] near syncope. It is noted he had a recent norovirus infection. His urinalysis was suggestive of a UTI, and he was admitted to the hospital for further management. HOSPITAL COURSE: Patient was admitted to the cardiac telemetry unit. A urine culture grew pansensit arianne E coli. He had a negative GI pathogen panel. Blood cultures were not obtained on admission. Hi s antibiotics were transitioned to oral Levaquin. He continued to have orthostatic hypotension, whic h was responsive to IV fluids. He received several normal saline fluid boluses. On the day of disch arge, his orthostasis is completely resolved and his blood pressures are back in the 130s to 140s ove r 90s. Cosyntropin stim test was normal with no evidence of adrenal insufficiency. He had no eviden ce of sepsis with a normal lactate. His condition improved, but he continues to have gait instabilit y and will, therefore, require ongoing SNF rehab. DISPOSITION: Patient is discharged back to SNF in stable condition. FOLLOWUP: Dr. Addie Zamora, primary care. DISCHARGE MEDICATIONS: Please see [employer] completed outpatient medication list. New medications on discharge include Levaquin 700 mg p.o. daily for 3 more days to complete 10 days of therapy. The charis herrera will continue all other outpatient medications as previously prescribed. /[id number]/MODL
== END 2017-03-09 14:40 | DRG 689 ==
LOC: EDUNIT# → F3N 15:10 → F2W 03-05 18:40 → OBSVTOIN 03-05 21:03
PROVIDERS: ADMIT Internal Medicine; ATTEND Internal Medicine
DX: N39.0 Urinary tract infection, site not specified (principal); G93.49 Other encephalopathy; R19.7 Diarrhea, unspecified; I95.1 Orthostatic hypotension; R26.89 Other abnormalities of gait and mobility; E86.9 Volume depletion, unspecified; B96.20 Unspecified Escherichia coli [E. coli] as the cause of diseases classified elsewhere; D53.9 Nutritional anemia, unspecified; L89.151 Pressure ulcer of sacral region, stage 1; Z99.3 Dependence on wheelchair; Z88.0 Allergy status to penicillin
CPT/HCPCS: 80305; 82947-QW; 92507-GN; 92523-GN; 97161-GP; 97165-GO; 97530-GP; 97535-GO; G0378; G0480; G8978-GP-CJ; G8979-GP-CI; G8987-GO-CK; G8988-GO-CI; G9168-GN-CK; G9169-GN-CJ; J0692; J0834; J1335; J1650; Q9967

== ENCOUNTER → 2017-04-14 | Outpatient (CLI) | payer OTHER, MEDICARE | LOC: GIMAGING 17:41 | PROVIDERS: ATTEND Nurse Practitioner | DX: M48.54XA Collapsed vertebra, not elsewhere classified, thoracic region, initial encounter for fracture (principal); M48.56XA Collapsed vertebra, not elsewhere classified, lumbar region, initial encounter for fracture | CPT/HCPCS: 72070-PO; 72100-PO ==

== ENCOUNTER → 2017-05-10 | Outpatient (CLI) | payer OTHER, MEDICARE | LOC: FIMAGING 10:57 | PROVIDERS: ATTEND Family Medicine | DX: M48.54XA Collapsed vertebra, not elsewhere classified, thoracic region, initial encounter for fracture (principal); M48.56XA Collapsed vertebra, not elsewhere classified, lumbar region, initial encounter for fracture; M51.84 Other intervertebral disc disorders, thoracic region ==

== ENCOUNTER 2017-05-21 09:08 | Day surgery (SDC) | payer OTHER, MEDICARE ==
[2017-05-21] MEDS ORDERED: CLINDAMYCIN 600 MG/DEXTROSE 50 ML IV ONE (09:30)
[2017-05-21] MEDS ORDERED: HEPARIN 10,000 UNIT/10 ML MDV (1,000 UNIT/ML) IVP PRN (09:31)
[2017-05-21] MEDS ORDERED: ALTEPLASE 2 MG VIAL IVP PRN (09:31)
[2017-05-21] MEDS ORDERED: NALOXONE HCL 0.4 MG/ML INJ IVP PRN ×2 (09:31→12:59)
[2017-05-21] MEDS ORDERED: MEPERIDINE 25 MG/ML SYR IVP PRN (09:31)
[2017-05-21] MEDS ORDERED: NS 1,000 ML IV ONE (09:31)
[2017-05-21] MEDS ORDERED: FLUMAZENIL 0.5 MG/5 ML MDV IVP PRN (09:31)
[2017-05-21] MEDS ORDERED: DEXAMETHASONE 10 MG/ML VIAL IVP ONE (09:31)
[2017-05-21] MEDS ORDERED: PROTAMINE SULFATE 50 MG/5 ML VIAL IVP PRN (09:31)
[2017-05-21] MEDS ORDERED: MIDAZOLAM 2 MG/2 ML VIAL IVP PRN (09:31)
[2017-05-21] MEDS ORDERED: GLUCAGON HCL 1 MG VIAL IVP PRN (09:31)
[2017-05-21] MEDS ORDERED: fentaNYL 100 MCG/2 ML INJ IVP PRN ×2 (09:31→12:59)
[2017-05-21 09:50] VITALS: PULSE 60
[2017-05-21 09:52] LABS: PLATELET COUNT 237 10^3/uL (150-400)
--- NOTE | 2017-05-21 09:59 | PDANEPAE ---
ANE History of Present Illness compression fracture ANE Past Medical History - Cardiovascular History Hx Hypertension: No Hx Arrhythmias: Yes Hx Chest Pain: No Hx Coronary Artery / Peripheral Vascular Disease: No Hx CHF / Valvular Disease: No Hx Palpitations: No Cardiovascular History Comment: Low blood pressure - Pulmonary History Hx COPD: No Hx Asthma/Reactive Airway Disease: No Hx Recent Upper Respiratory Infection: No Hx Oxygen in Use at Home: No Hx Sleep Apnea: No Sleep Apnea Screening Result - Last Documented: Positive - Neurologic History Hx Cerebrovascular Accident: No Hx Seizures: No Hx Dementia: No - Endocrine History Hx Diabetes: No - Renal History Hx Renal Disorders: No - Liver History Hx Hepatic Disorders: Yes Hepatic History Comment: 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) - Neurological & Psychiatric Hx Hx Neurological and Psychiatric Disorders: Yes Neurological / Psychiatric History Comment: 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 - Cancer History Hx Cancer: No - Congenital Disorder History Hx Congenital Disorders: No - GI History Hx Gastrointestinal Disorders: No - Other Health History Other Health History: No teeth - Chronic Pain History Chronic Pain: Yes - Surgical History Prior Surgeries: cyst removal ANE Review of Systems Review of Systems: - Exercise capacity METS (RN): 1 METS ANE Patient History - Allergies Allergies/Adverse Reactions: Penicillins Allergy (Verified 05/21/17 09:55) Other-Enter Comments - Home Medications Home Medications: Naproxen Sodium [Aleve 220 MG (*)] 440 mg PO DAILY PRN 02/16/17 [Last Taken Unknown] B Complex W-C No.20/Folic Acid 05/21/17 [Last Taken Unknown] Midadrine 5 mg 05/21/17 [Last Taken 05/21/17 07:30] Sodium Chloride 1 gr 05/21/17 [Last Taken Unknown] - Smoking Hx Smoking Status: Former smoker - Family Anes Hx Family Hx Anesthesia Complications: None ANE Labs/Vital Signs - Labs Result Diagrams: 05/21/17 09:41 05/21/17 09:41 - Vital Signs Blood Pressure: 149/7 Heart Rate: 60 Respiratory Rate: 18 O2 Sat (%): 98 Height: 180.34 cm Weight: 70.307 kg ANE Physical Exam - Airway Neck exam: FROM Mallampati Score: Class 2 Mouth exam: poor dentition - Pulmonary Pulmonary: no respiratory distress - Cardiovascular Cardiovascular: regular rate and rhythym - ASA Status ASA Status: III ANE Anesthesia Plan Anesthesia Plan: MAC
[2017-05-21 10:01] LABS: INR 1.11 (0.83-1.16); PROTIME(PATIENT) 14.5 SEC (12.0-15.0)
[2017-05-21] MEDS ORDERED: LIDOCAINE 2% 5 ML SDV ONE (11:46)
--- NOTE | 2017-05-21 11:46 | PDPROPOC ---
Sedation Plan of Care Sedation Plan of Care: vital signs stable, mental status noted, patient educated of risks, benefits, alternatives, patient can tolerate sedation ASA Classification: ASA 2 Planned drugs: fentanyl, midazolam Mallampati Score: Class 1 Mallampati Reference Image: Patient passed 3-3-2 rule?: Yes
[2017-05-21] MEDS ORDERED: fentaNYL 100 MCG/2 ML INJ ONE (11:47)
[2017-05-21] MEDS ORDERED: PROPOFOL/EMULSION 500 MG/50 ML BOTTLE IV ONE (11:47)
--- NOTE | 2017-05-21 11:47 | PDGENHP ---
History & Physical Chief Complaint: L1 FRACTURE History of Present Illness: FRACTURES T12-L3. ALL WITH SIMILAR DEGREE OF EDEMA. LITTLE PAIN. Pertinent Past, Social, Family History: BILATERAL FEET NEUROPATHY; RENAL CYST REMOVAL, ETOH Relevant Physical Exam: LITTLE PAIN WITH MOVEMENT Cardiorespiratory Assessment: RRR, CTA
[2017-05-21 12:05] VITALS: TEMP 98.1
[2017-05-21] MEDS ORDERED: ACETAMINOPHEN 500 MG TAB PO PRN (12:59)
[2017-05-21] MEDS ORDERED: PROMETHAZINE HCL 25 MG/ML INJ IVP PRN (12:59)
[2017-05-21] MEDS ORDERED: LR 500 ML IV PRN (12:59)
[2017-05-21] MEDS ORDERED: ALBUTEROL 3 ML DEYVIAL IH PRN (12:59)
[2017-05-21] MEDS ORDERED: ONDANSETRON 4 MG/2 ML VIAL IVP PRN (12:59)
[2017-05-21] MEDS ORDERED: HYDROCODONE/APAP 5/325 TAB PO PRN (12:59)
[2017-05-21] MEDS ORDERED: oxyCODONE IR 5 MG TAB PO PRN (13:05)
[2017-05-21] MEDS ORDERED: BUPIVACAINE 0.5% 30 ML SDV ONE (13:07)
[2017-05-21] MEDS ORDERED: LIDOCAINE 1% 300 MG/30 ML SDV ONE (13:07)
--- NOTE | 2017-05-21 13:07 | PDRADPN ---
Radiology Procedure Note Date of Procedure: 05/21/17 Radiologist: Khushi Newton Anesthesiologist: Dr. montano Anesthesia: IV Sedation Pre-op Diagnosis: T12-L3 fractures Post-op Diagnosis: same Indication: pain Procedure: L1 and L2 kyphoplasty Finding(s): see report Inf/Abcess present in the surg proc area at time of surgery?: No Complications: none
--- NOTE | 2017-05-21 13:22 | POSTANESTH ---
Post Anesthetic Evaluation Cardiovascular Status: Normal, Stable Respiratory Status: Normal, Stable Level of Consciousness/Mental Status: Can Participate in Eval, Mildly Sleepy, Arousable Pain Control: Adequate, Prn Tx Ordered Nausea/Vomiting Control: Adequate, Prn Tx Ordered Complications Possibly Related to Anesthesia: None Noted
[2017-05-21 15:53] VITALS: BP 141/90; RESP 16; O2SAT 100
== END 2017-05-21 15:48 | disposition home or self-care (01) ==
LOC: FIMAGING 09:08
PROVIDERS: ATTEND Radiology Diagnostic Radiology
DX: S32.010A Wedge compression fracture of first lumbar vertebra, initial encounter for closed fracture (principal); X58.XXXA Exposure to other specified factors, initial encounter; G57.93 Unspecified mononeuropathy of bilateral lower limbs; Z88.0 Allergy status to penicillin; Z87.891 Personal history of nicotine dependence
CPT/HCPCS: J1100; J2704; J3010

== ENCOUNTER 2017-11-20 15:09 | Emergency (ER) | payer OTHER, MEDICARE ==
[2017-11-20] MEDS ORDERED: NS 1,000 ML IV ONE (15:19)
--- NOTE | 2017-11-20 15:19 | EDPHY ---
H & P Stated Complaint: n/v/d Time Seen by Provider: 11/20/17 15:18 HPI/ROS: CHIEF COMPLAINT: Vomiting, tremulous HISTORY OF PRESENT ILLNESS: The patient presents to the ED with several days of vomiting. The patient is a alcoholic. He currently lives in independent living. He takes no regular medications. He reports he has been having some nasal congestion which is resulting in a gagging sensation vomiting. He has had 2 episodes of nonbloody diarrheal stool over the past 2 days. The patient denies significant abdominal pain. The patient does continue to drink alcohol however has not had a drink in several days secondary to his vomiting. The patient was hospitalized in January of last year with similar symptoms from norovirus. The patient denies any rash. He denies any exertional chest pain or dyspnea. REVIEW OF SYSTEMS: A comprehensive 10 point review of systems is otherwise negative aside from elements mentioned in the history of present illness. Source: Patient - Personal History Current Tetanus/Diphtheria Vaccine: Yes Current Tetanus Diphtheria and Acellular Pertussis (TDAP): Yes - Medical/Surgical History Hx Asthma: No Hx Chronic Respiratory Disease: No Hx Diabetes: No Hx Cardiac Disease: No Hx Renal Disease: No Hx Cirrhosis: Yes Hx Alcoholism: Yes Hx HIV/AIDS: No Hx Splenectomy or Spleen Trauma: No Other PMH: ETOH ABUSER, LIVER PROBLEMS, L foot fracture 2017, neuropathy bilateral feet, Confusion - Social History Smoking Status: Former smoker - Physical Exam Exam: General Appearance: Alert, no distress Eyes: Pupils equal and round no pallor or injection ENT, Mouth: Mucous membranes moist Respiratory: There are no retractions, lungs are clear to auscultation Cardiovascular: Regular rate and rhythm Gastrointestinal: Protuberant Neurological: 5/5 strength all 4 extremities, tremulous Skin: Warm and dry, no rashes Musculoskeletal: Neck is supple nontender Extremities: symmetrical, full range of motion Psychiatric: Patient is oriented X 3, there is no agitation Constitutional: Initial Vital Signs Temperature (C) 37.5 C 11/20/17 15:15 Heart Rate 95 11/20/17 15:15 Respiratory Rate 16 11/20/17 15:15 Blood Pressure 141/106 H 11/20/17 15:15 O2 Sat (%) 92 11/20/17 15:15 O2 Delivery Mode Room Air Allergies/Adverse Reactions: Penicillins Allergy (Verified 11/20/17 15:14) Other-Enter Comments Home Medications: Medication Instructions Recorded Naproxen Sodium [Aleve 220 MG (*)] 440 mg PO DAILY PRN 02/16/17 B Complex W-C No.20/Folic Acid 05/21/17 Ondansetron Odt [Zofran Odt] 4 mg PO Q4PRN PRN #20 tab 11/20/17 Medical Decision Making - Diagnostics Imaging Results: Imaging Impressions Chest X-Ray 11/20/17 16:09 Impression: Moderate hiatal hernia; otherwise negative chest.. ED Course/Re-evaluation: The patient presents to the ED with several days of vomiting, loose stool and likely alcohol withdrawal. The patient was slightly tremulous upon arrival. His vital signs are otherwise stable. I find his abdominal exam to be benign. He does endorse symptoms of gagging from nasal drainage. His lung sounds are clear to auscultation bilaterally. The patient had an IV established. He received a L of normal saline. He received 1 mg of IV Ativan. He received 4 mg of Zofran. Laboratory testing demonstrates no evidence of a significant leukocytosis, pancreatitis, hepatitis or metabolic derangement. The patient was re-evaluated at 5:21 p.m.. He is now ambulatory. His symptoms of alcohol withdrawal have improved. His vomiting has also resolved. At this point time I do feel he can be discharged home with Zofran. The patient is advised to return to the ED for worsening symptoms or other concerns. Differential Diagnosis: Differential diagnosis considered includes alcohol withdrawal syndrome, dehydration, metabolic abnormality, pancreatitis, pneumonia, gastroenteritis - Data Points Laboratory Results: Laboratory Results 11/20/17 15:20 11/20/17 15:20 11/20/17 11/20/17 11/20/17 15:20 15:20 15:20 WBC 10.91 10^3/uL H 10^3/uL (3.80-9.50) RBC 3.96 10^6/uL L 10^6/uL (4.40-6.38) Hgb 10.5 g/dL L g/dL (13.7-17.5) Hct 33.2 % L % (40.0-51.0) MCV 83.8 fL fL (81.5-99.8) MCH 26.5 pg L pg (27.9-34.1) MCHC 31.6 g/dL L g/dL (32.4-36.7) RDW 17.5 % H % (11.5-15.2) Plt Count 151 10^3/uL 10^3/uL (150-400) MPV 9.5 fL fL (8.7-11.7) Neut % (Auto) 83.3 % H % (39.3-74.2) Lymph % (Auto) 6.0 % L % (15.0-45.0) [place] % (Auto) 9.8 % % (4.5-13.0) Eos % (Auto) 0.1 % L % (0.6-7.6) Baso % (Auto) 0.2 % L % (0.3-1.7) Nucleat RBC Rel Count 0.0 % % (0.0-0.2) Absolute Neuts (auto) 9.09 10^3/uL H 10^3/uL (1.70-6.50) Absolute Lymphs (auto) 0.65 10^3/uL L 10^3/uL (1.00-3.00) Absolute Monos (auto) 1.07 10^3/uL H 10^3/uL (0.30-0.80) Absolute Eos (auto) 0.01 10^3/uL L 10^3/uL (0.03-0.40) Absolute Basos (auto) 0.02 10^3/uL 10^3/uL (0.02-0.10) Absolute Nucleated RBC 0.00 10^3/uL 10^3/uL (0-0.01) Immature Gran % 0.6 % % (0.0-1.1) Immature Gran # 0.07 10^3/uL 10^3/uL (0.00-0.10) PT 14.9 SEC SEC (12.0-15.0) INR 1.15 (0.83-1.16) APTT 34.9 SEC SEC (23.0-38.0) Sodium 135 mEq/L mEq/L (135-145) Potassium 3.9 mEq/L mEq/L (3.3-5.0) Chloride 95 mEq/L L mEq/L (97-110) Carbon Dioxide 25 mEq/l mEq/l (22-31) Anion Gap 15 mEq/L mEq/L (8-16) BUN 21 mg/dL mg/dL (7-23) Creatinine 0.9 mg/dL mg/dL (0.7-1.3) Estimated GFR > 60 Glucose 154 mg/dL H mg/dL (70-100) Calcium 9.9 mg/dL mg/dL (8.5-10.4) Total Bilirubin 1.2 mg/dL mg/dL (0.1-1.4) Conjugated Bilirubin 0.2 mg/dL mg/dL (0.0-0.5) Unconjugated Bilirubin 1.0 mg/dL mg/dL (0.0-1.1) AST 30 IU/L IU/L (17-59) ALT 24 IU/L IU/L (21-72) Alkaline Phosphatase 55 IU/L IU/L (38-126) Total Protein 6.9 g/dL g/dL (6.3-8.2) Albumin 4.2 g/dL g/dL (3.5-5.0) Lipase 278 IU/L IU/L (23-300) Medications Given: Discontinued Medications Sodium Chloride (Ns) 1,000 mls @ 0 mls/hr IV EDNOW ONE; Wide Open PRN Reason: Protocol Stop: 11/20/17 15:20 Last Admin: 11/20/17 15:35 Dose: 1,000 mls Lorazepam (Ativan Injection) 1 mg IVP EDNOW ONE Stop: 11/20/17 16:09 Last Admin: 11/20/17 16:27 Dose: 1 mg Ondansetron HCl (Zofran) 4 mg IVP EDNOW ONE Stop: 11/20/17 16:09 Last Admin: 11/20/17 16:27 Dose: 4 mg Departure - Departure Disposition: Home, Routine, Self-Care Clinical Impression: Vomiting, Alcohol withdrawal Condition: Good Instructions: Acute Nausea and Vomiting (ED) Additional Instructions: 1. Zofran as needed for nausea and vomiting. 2. Return to the ED for any recurrent symptoms, pain, fever or other concerns. 3. Please follow up with your primary care provider as needed Referrals: Addie Zamora MD [Primary Care Provider] - As per Instructions
--- NOTE | 2017-11-20 15:22 | EDPHY ---
H & P Stated Complaint: n/v/d Time Seen by Provider: 11/20/17 15:18 HPI/ROS: CHIEF COMPLAINT: [ ] HISTORY OF PRESENT ILLNESS: [Need 4: Location, Duration, Severity, Quality, Context, Timing Modifying Factors, Associated S&S] REVIEW OF SYSTEMS: A comprehensive 10 point review of systems is otherwise negative aside from elements mentioned in the history of present illness. Source: Patient Exam Limitations: No limitations - Personal History Current Tetanus/Diphtheria Vaccine: Yes Current Tetanus Diphtheria and Acellular Pertussis (TDAP): Yes - Medical/Surgical History Hx Asthma: No Hx Chronic Respiratory Disease: No Hx Diabetes: No Hx Cardiac Disease: No Hx Renal Disease: No Hx Cirrhosis: Yes Hx Alcoholism: Yes Hx HIV/AIDS: No Hx Splenectomy or Spleen Trauma: No Other PMH: ETOH ABUSER, LIVER PROBLEMS, L foot fracture 2017, neuropathy bilateral feet, Confusion - Social History Smoking Status: Former smoker - Physical Exam Exam: General Appearance: [Alert, no distress] Eyes: [Pupils equal and round no pallor or injection] ENT, Mouth: [Mucous membranes moist] Respiratory: [There are no retractions, lungs are clear to auscultation] Cardiovascular: [Regular rate and rhythm] Gastrointestinal: [Abdomen is soft and nontender, no masses, bowel sounds normal] Neurological: [A&O, normal motor function, normal sensory exam, normal cranial nerves] Skin: [Warm and dry, no rashes] Musculoskeletal: [Neck is supple nontender] Extremities: [symmetrical, full range of motion] Psychiatric: [Patient is oriented X 3, there is no agitation] Constitutional: Initial Vital Signs Temperature (C) 37.5 C 11/20/17 15:15 Heart Rate 95 11/20/17 15:15 Respiratory Rate 16 11/20/17 15:15 Blood Pressure 141/106 H 11/20/17 15:15 O2 Sat (%) 92 11/20/17 15:15 O2 Delivery Mode Room Air Allergies/Adverse Reactions: Penicillins Allergy (Verified 11/20/17 15:14) Other-Enter Comments Home Medications: Medication Instructions Recorded Naproxen Sodium [Aleve 220 MG (*)] 440 mg PO DAILY PRN 02/16/17 B Complex W-C No.20/Folic Acid 05/21/17 Departure - Departure Referrals: Addie Zamora MD [Primary Care Provider] - As per Instructions
[2017-11-20 15:40] LABS: PLATELET COUNT 151 10^3/uL (150-400)
[2017-11-20 15:47] LABS: INR 1.15 (0.83-1.16); PROTIME(PATIENT) 14.9 SEC (12.0-15.0)
[2017-11-20] MEDS ORDERED: ONDANSETRON 4 MG/2 ML VIAL IVP ONE (16:08)
[2017-11-20] MEDS ORDERED: LORazepam 2 MG/ML INJ IVP ONE (16:08)
[2017-11-20 17:08] VITALS: BP 155/89
== END 2017-11-20 17:35 | disposition home or self-care (01) ==
DX: R11.10 Vomiting, unspecified (principal); F10.239 Alcohol dependence with withdrawal, unspecified
CPT/HCPCS: 71046; 96361; 96374; 96375; 99284; J2060; J2405

== ENCOUNTER 2018-08-04 13:58 | Inpatient (IN) | payer OTHER, MEDICARE ==
--- NOTE | 2018-08-04 14:03 | EDPHY ---
H & P Time Seen by Provider: 08/04/18 14:00 Constitutional: Initial Vital Signs Temperature (C) 36.3 C 08/04/18 14:06 Heart Rate 73 08/04/18 14:06 Respiratory Rate 16 08/04/18 14:06 Blood Pressure 98/72 L 08/04/18 14:06 O2 Sat (%) 95 08/04/18 14:06 Allergies/Adverse Reactions: Penicillins Allergy (Verified 08/04/18 14:11) Other-Enter Comments Home Medications: Medication Instructions Recorded Naproxen Sodium [Aleve 220 MG (*)] 220 mg PO BID PRN 02/16/17 Vitamin B Complex [Vitamin B 1 each PO DAILY #0 05/21/17 Complex (OTC)] Multivitamins [Multivitamin (*)] 1 each PO DAILY 08/04/18 Omeprazole 40 mg PO DAILY 08/04/18 Medical Decision Making - Diagnostics Imaging: I viewed and interpreted images myself ED Course/Re-evaluation: CHIEF COMPLAINT: Left hip deformity HISTORY OF PRESENT ILLNESS: The patient is a 74 y/o male arriving via EMS as a full trauma alert for a left hip deformity, 20 minutes ago. The patient was standing, when he fell and landed on his left hip. He was unable to stand or walk after the fall. When EMS arrived they placed a pelvic wrap for an unknown reason. As they placed a pelvic wrap, they then called a full trauma alert per their protocol. No fever, headache, body aches, lightheadedness, chest pain, heart palpitations, shortness of breath, cough, abdominal pain, urinary or bowel complaints, numbness, paresthesias. REVIEW OF SYSTEMS: A 10 point review of systems was performed and is negative with the exception of the elements mentioned in the history of present illness. PHYSICAL EXAM: HR, BP, O2 Sat, RR. Temp noted General Appearance: Alert, well hydrated, appropriate, and non-toxic appearing. Head: Atraumatic without scalp tenderness or obvious injury Eyes: Pupils equal, round, reactive to light and accommodation, EOMI, no trauma , no injection. Ears: Clear bilaterally, no perforation, normal landmarks Nose: Atraumatic, no rhinorrhea, clear. Throat: There is no erythema or exudates, no lesions, normal tonsils, mucus membranes moist. Neck: Supple, 2+ carotid upstroke, nontender, no lymphadenopathy. Respiratory: No retractions, no distress, no wheezes, and no accessory muscle use. Lungs are clear to auscultation bilaterally. Cardiovascular: Regular rate and rhythm, no murmurs, rubs, or gallops. Bilateral carotid, radial, dorsalis pedis, and posterior tibial pulses intact. Good capillary refill all extremities. Gastrointestinal: Abdomen is soft, nontender, non-distended, no masses, no rebound, no guarding, no peritoneal signs. Musculoskeletal: Shortened and externally rotated left lower extremity. Normal pelvis. Otherwise normal active ROM of all extremities, atraumatic. Neurological: Alert, appropriate, and interactive. The patient has normal DTRs and non-focal cranial nerves, motor, sensory, and cerebellar exam. Skin: No rashes, good turgor, no nodules on palpation. Past medical history: Alcohol abuse with "liver problems, confusion, neuropathy , left foot fracture Past surgical history: Denies Family history: Denies Social history: Lives in [place], , retired DIAGNOSTICS/PROCEDURES/CRITICAL CARE TIME: Pelvic X-ray: Left lesser trochanter fracture, with femoral neck and intertrochanteric component. Normal pelvis. DIFFERENTIAL DIAGNOSIS: The differential diagnosis for the patient's hip injury included but was not limited to fracture, ligamentous injury, contusion, muscular strain. MEDICAL DECISION MAKING: The patient is a 74 y/o male arriving via EMS as a full trauma alert for a left hip deformity, 20 minutes ago. The patient was standing, when he fell and landed on his left hip. When EMS arrived they placed a pelvic wrap for an unknown reason. As they placed a pelvic wrap, they then called a full trauma alert per their protocol. On exam he has a shortened and externally rotated left lower extremity as well as a pelvic wrap. Dr. Castillo, general surgeon, lab, respiratory therapy, and imaging are in the room upon arrival. He does not take an anticoagulants. Pelvic x-ray ordered; 1L IV NS administered. 1401: I reviewed patient's pelvic x-ray at bedside which reveals a left greater trochanter fracture. I will page the orthopedic surgeon. 1405: I will downgrade this patient to a non-trauma. Dr. Castillo, general surgeon, agrees with me. He does not need to consult on this patient and we will admit this patient to the hospitalist. It is unclear as to why a pelvic binder was placed on the patient for an obvious hip fracture. 1416: I consulted with the hospitalist service, Dr. Mayer accepts admission of this patient. 1417: I consulted with Dr. Brothers, orthopedic surgeon, regarding this patient. He agrees to consult on this patient during his admission. 1444: I consulted with Dr. Mayer as she is in the emergency department. I also reviewed the patient's labs. Departure - Departure Disposition: [facility] Inpatient Acute Clinical Impression: Fracture, intertrochanteric, left femur Qualifiers: Encounter type: initial encounter Fracture type: closed Fracture alignment: displaced Qualified Code(s): S72.142A - Displaced intertrochanteric fracture of left femur, initial encounter for closed fracture Condition: Fair Report Scribed for: Jim Harris Report Scribed by: Xin Pride Date of Report: 08/04/18 Time of Report: 14:04
[2018-08-04] MEDS ORDERED: ONDANSETRON DISINTEGRATING 4 MG TAB PO PRN (14:17)
[2018-08-04] MEDS ORDERED: NS 1,000 ML IV ONE (14:22)
[2018-08-04] MEDS ORDERED: HYDROmorphONE/DILAUDID 1 MG/ML INJ IVP PRN (14:26)
[2018-08-04 14:27] LABS: PLATELET COUNT 100 10^3/uL (150-400)
[2018-08-04 14:42] LABS: INR 1.1 (0.83-1.16); PROTIME(PATIENT) 13.8 SEC (12.0-15.0)
--- NOTE | 2018-08-04 14:56 | PDGENHP ---
History and Physical - Chief Complaint left hip pain after a fall - History of Present Illness 73 yo male with h/o alcoholism and prior falls presents to the ED with left hip pain after a ground level fall. He thinks his walker bumped into the door jamb causing him to lose his balance, falling onto his left hip. His niece witnessed the fall. He notes a h/o peripheral neuropathy. He has had falls in the past, requiring SNF stays. He notes drinking 3-4 bottles of white wine a day. He started drinking heavily after retiring a few years ago. He denies N/V , abdominal pain, or evidence of GI bleeding. No CP or SOB. In the ED, a xray revealed a comminuted, displaced hip fracture. Ortho is consulted and he is admitted for further management. History Information - Allergies/Home Medication List Allergies/Adverse Reactions: Penicillins Allergy (Verified 08/04/18 14:11) Other-Enter Comments Home Medications: Naproxen Sodium [Aleve 220 MG (*)] 220 mg PO BID PRN 02/16/17 [Last Taken Unknown] Vitamin B Complex [Vitamin B Complex (OTC)] 1 each PO DAILY #0 05/21/17 [Last Taken Unknown] Multivitamins [Multivitamin (*)] 1 each PO DAILY 08/04/18 [Last Taken Unknown] Omeprazole 40 mg PO DAILY 08/04/18 [Last Taken 08/04/18] I have personally reviewed and updated: family history, medical history, social history, surgical history - Past Medical History GERD Additional medical history: Alcoholism. Foot fracture. Sacral decubitus ulcer. Chronic hyponatremia with baseline serum sodium level between 130 and 133 - Surgical History Additional surgical history: Tonsillectomy. Colonoscopy approximately 3-4 years ago, told that he needed 5 year follow-up - Family History Additional family history: Family history of neuro degenerative disorders, father at age 84, his mother age 100 - Social History Smoking Status: Former smoker Alcohol Use: Heavy Additional social history: Resides in [facility] at [place], uses walker at baseline Review of Systems Review of Systems: ROS: 10pt was reviewed & negative except for what was stated in HPI & below Physical Exam Physical Exam: Temp Pulse Resp BP Pulse Ox 36.3 C 73 18 108/69 96 08/04/18 14:06 08/04/18 14:31 08/04/18 14:31 08/04/18 14:31 08/04/18 14:31 Constitutional: no apparent distress Eyes: PERRL Ears, Nose, Mouth, Throat: moist mucous membranes Cardiovascular: regular rate and rhythym Respiratory: no respiratory distress, clear to auscultation Gastrointestinal: normoactive bowel sounds, soft, non-tender abdomen Skin: warm Musculoskeletal: full muscle strength, other (Left leg externally rotated, pain at greater trochanter) Neurologic: AAOx3 Psychiatric: interacting appropriately Lab Data & Imaging Review 08/04/18 14:10 08/04/18 14:10 WBC 3.70 10^3/uL (3.80-9.50) L 08/04/18 14:10 RBC 3.04 10^6/uL (4.40-6.38) L 08/04/18 14:10 Hgb 10.9 g/dL (13.7-17.5) L 08/04/18 14:10 Hct 32.1 % (40.0-51.0) L 08/04/18 14:10 MCV 105.6 fL (81.5-99.8) H 08/04/18 14:10 MCH 35.9 pg (27.9-34.1) H 08/04/18 14:10 MCHC 34.0 g/dL (32.4-36.7) 08/04/18 14:10 RDW 13.8 % (11.5-15.2) 08/04/18 14:10 Plt Count 100 10^3/uL (150-400) L 08/04/18 14:10 MPV 9.3 fL (8.7-11.7) 08/04/18 14:10 Neut % (Auto) 39.2 % (39.3-74.2) L 08/04/18 14:10 Lymph % (Auto) 40.5 % (15.0-45.0) 08/04/18 14:10 [place] % (Auto) 16.5 % (4.5-13.0) H 08/04/18 14:10 Eos % (Auto) 2.2 % (0.6-7.6) 08/04/18 14:10 Baso % (Auto) 0.8 % (0.3-1.7) 08/04/18 14:10 Nucleat RBC Rel Count 0.0 % (0.0-0.2) 08/04/18 14:10 Absolute Neuts (auto) 1.45 10^3/uL (1.70-6.50) L 08/04/18 14:10 Absolute Lymphs (auto) 1.50 10^3/uL (1.00-3.00) 08/04/18 14:10 Absolute Monos (auto) 0.61 10^3/uL (0.30-0.80) 08/04/18 14:10 Absolute Eos (auto) 0.08 10^3/uL (0.03-0.40) 08/04/18 14:10 Absolute Basos (auto) 0.03 10^3/uL (0.02-0.10) 08/04/18 14:10 Absolute Nucleated RBC 0.00 10^3/uL (0-0.01) 08/04/18 14:10 Immature Gran % 0.8 % (0.0-1.1) 08/04/18 14:10 Immature Gran # 0.03 10^3/uL (0.00-0.10) 08/04/18 14:10 PT 13.8 SEC (12.0-15.0) 08/04/18 14:10 INR 1.10 (0.83-1.16) 08/04/18 14:10 APTT 36.4 SEC (23.0-38.0) 08/04/18 14:10 Sodium 129 mEq/L (135-145) L 08/04/18 14:10 Potassium 4.1 mEq/L (3.5-5.2) 08/04/18 14:10 Chloride 97 mEq/L (97-110) 08/04/18 14:10 Carbon Dioxide 16 mEq/l (22-31) L 08/04/18 14:10 Anion Gap 16 mEq/L (6-14) H 08/04/18 14:10 BUN 14 mg/dL (7-23) 08/04/18 14:10 Creatinine 1.0 mg/dL (0.7-1.3) 08/04/18 14:10 Estimated GFR > 60 08/04/18 14:10 Glucose 80 mg/dL (70-100) 08/04/18 14:10 Calcium 7.9 mg/dL (8.5-10.4) L 08/04/18 14:10 Total Bilirubin 0.6 mg/dL (0.1-1.4) 08/04/18 14:10 Conjugated Bilirubin 0.4 mg/dL (0.0-0.5) 08/04/18 14:10 Unconjugated Bilirubin 0.2 mg/dL (0.0-1.1) 08/04/18 14:10 AST 89 IU/L (17-59) H 08/04/18 14:10 ALT 69 IU/L (21-72) 08/04/18 14:10 Alkaline Phosphatase 48 IU/L (38-126) 08/04/18 14:10 Total Protein 5.9 g/dL (6.3-8.2) L 08/04/18 14:10 Albumin 3.6 g/dL (3.5-5.0) 08/04/18 14:10 Lipase 547 IU/L (23-300) H 08/04/18 14:10 Assessment & Plan Assessment: 73 yo male with h/o alcohol dependence and peripheral neuropathy, admitted with left hip fracture after GLF. Fracture, intertrochanteric, left femur (Acute) - comminuted, displaced. Ortho consulted by ED, will evaluate patient. -pain control -ortho consult, NPO at midnight, will need operative repair -PT/OT Peripheral neuropathy - likely 2/2 etoh, ambulates with walker at baseline -could trial low dose gabapentin, defer for now to avoid side effects charles- operatively Etoh dependence - drinks 3-4 bottles per day, does not plan to quit, INR normal , AST > ALT -will give wine TID, may need to increase if he develops w/d symptoms -mvi, folate, thiamine -PT/OT and speech/cog eval Pancytopenia - likely BM suppression 2/2 etoh, no e/o bleeding -trend Hyponatremia - likely volume depletion -gentle NS overnight, recheck in am AGMA - likely alcoholic ketoacidosis -hydrate for now, follow Full code DVT PPLX - SCD's for now, defer pharm as unclear when he'll go to the OR, start Lovenox post-op when cleared by ortho Dispo - inpt, anticipate >48 hrs hospitalization for management of acute hip fracture requiring surgery
[2018-08-04] MEDS ORDERED: CLINDAMYCIN 900 MG/DEXTROSE 50 ML IV ONE (15:25)
[2018-08-04] MEDS: WHITE WINE 120 ML BOTTLE PO SCH ×2 (16:30→21:53)
[2018-08-04] MEDS ORDERED: ceFAZolin 2 GM/DEXTROSE 100 ML IV ONE (16:48)
[2018-08-04] MEDS: ACETAMINOPHEN 500 MG TAB PO SCH ×2 (16:50→21:53)
[2018-08-04] MEDS: NS 1,000 ML IV SCH (16:51)
--- NOTE | 2018-08-04 18:51 | GCON ---
[f rep st] CONSULTATION ORTHOPEDIC CONSULTATION DATE OF CONSULTATION: 08/04/2018 REASON FOR CONSULTATION: Left hip fracture. HISTORY OF PRESENT ILLNESS: The patient is a 73-year-old male who lives in assisted living who had a witnessed ground level fall earlier today, was brought in to [facility]. X-rays were obtained, which showed an intertrochanteric fracture. He was admitted to the spitalist. I was consulted for further management of his fracture. PRIOR MEDICAL HISTORY: Alcoholism. SURGICAL HISTORY: Tonsillectomy. MEDICATIONS: Naproxen, vitamin B, multivitamin, omeprazole. ALLERGIES: Penicillin hives. SOCIAL HISTORY: Again, does not smoke. Drinks 3 to 4 bottles of wine per day and has done this for at least 10+ years. Does have a caregiver, Emma, who is at his bedside and helps with his history as well. REVIEW OF SYSTEMS: No loss of consciousness. No shortness of breath. No chest pain. Otherwise, re view of systems unremarkable. PHYSICAL EXAM: GENERAL: Pleasant 73-year-old male. He answers questions appropriately. VITAL SIGN S: Temperature is 36, heart rate 73, respiratory rate 18, blood pressure is 108/69, pulse ox 96. No distress. HEENT: Normocephalic, atraumatic. Extraocular muscles intact. NECK: Supple. There is no lymphadenopathy. No JVD. CHEST: Clear to auscultation. CARDIOVASCULAR: Regular rate and rhyt hm. ABDOMEN: Soft, nontender, nondistended. EXTREMITIES: Left lower extremity shows some mild swe lling in the thigh compartment, but it is soft, tenderness proximally. His leg is short and external ly rotated on the left. Calf is soft. 2+ dorsalis pedis, posterior tibial pulses. He has 5/5 ankle dorsiflexion, plantar flexion, strength. IMAGING: X-rays show diffuse osteopenia, comminuted intertrochanteric fracture, lesser trochanter is off. ASSESSMENT: Intertrochanteric fracture left, ground level fall with poor bone quality and alcoholism . PLAN: We will get him admitted to the hospital. Keep him comfortable overnight. We will plan on doe [facility] early afternoon tomorrow for intramedullary nailing. Risks and benefits of the procedure, incl uding infection, postoperative blood clots, need for additional surgery were all discussed. He under stands these risks, wished to proceed. He is anemic at this point. I did explain there is a chance he is going to need some blood as well, and he understands that. /[id number]/MODL
[2018-08-04] MEDS: oxyCODONE IR 5 MG TAB PO PRN (20:03)
[2018-08-04] MEDS: ONDANSETRON 4 MG/2 ML VIAL IVP PRN (20:52)
[2018-08-05] MEDS: NS 1,000 ML IV SCH ×2 (05:28→21:41)
[2018-08-05] MEDS: ACETAMINOPHEN 500 MG TAB PO SCH ×3 (05:29→21:42)
[2018-08-05] MEDS: oxyCODONE IR 5 MG TAB PO PRN ×3 (05:29→21:41)
[2018-08-05] MEDS ORDERED: ceFAZolin 2 GM/DEXTROSE 100 ML IV ONE (06:00)
[2018-08-05] MEDS ORDERED: CYCLOBENZAPRINE 10 MG TAB PO PRN (09:42)
[2018-08-05] MEDS: THIAMINE HCL 100 MG TAB PO SCH (09:59)
[2018-08-05] MEDS: MULTIVITAMINS 1 EACH TAB PO SCH (09:59)
[2018-08-05] MEDS: FOLIC ACID 1 MG TAB PO SCH (09:59)
[2018-08-05] MEDS: PANTOPRAZOLE SODIUM 40 MG TAB PO SCH (09:59)
[2018-08-05] MEDS: ONDANSETRON 4 MG/2 ML VIAL IVP PRN (10:07)
[2018-08-05] MEDS ORDERED: LORazepam 2 MG/ML INJ IVP PRN (10:21)
[2018-08-05] MEDS ORDERED: FLUMAZENIL 0.5 MG/5 ML MDV IVP PRN (10:21)
[2018-08-05] MEDS: WHITE WINE 120 ML BOTTLE PO SCH ×3 (12:14→21:47)
--- NOTE | 2018-08-05 13:32 | PDMN ---
Medical Necessity Medical necessity: Pt meets IP criteria per MD & MCG MG-MD Musculoskeletal Disease; est los >2 mn for eval/tx of L hip fx s/p fall; admit for Ortho consult w/operative repair, pain management & therapies; hx alcohol dependence; per H&P & order 08/04/18
--- NOTE | 2018-08-05 15:29 | PDANEPAE ---
ANE History of Present Illness LEFT HIP FX ANE Past Medical History - Cardiovascular History Hx Hypertension: No Hx Arrhythmias: Yes Hx Chest Pain: No Hx Coronary Artery / Peripheral Vascular Disease: No Hx CHF / Valvular Disease: No Hx Palpitations: No Cardiovascular History Comment: Low blood pressure - Pulmonary History Hx COPD: No Hx Asthma/Reactive Airway Disease: No Hx Recent Upper Respiratory Infection: No Hx Oxygen in Use at Home: No Hx Sleep Apnea: No Sleep Apnea Screening Result - Last Documented: Positive - Neurologic History Hx Cerebrovascular Accident: No Hx Seizures: No Hx Dementia: No - Endocrine History Hx Diabetes: No Hypothyroid: No Hyperthyroid: No Obesity: no - Renal History Hx Renal Disorders: No - Liver History Hx Hepatic Disorders: Yes Hepatic History Comment: 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) - Neurological & Psychiatric Hx Hx Neurological and Psychiatric Disorders: Yes Neurological / Psychiatric History Comment: 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 - Cancer History Hx Cancer: No - Congenital Disorder History Hx Congenital Disorders: No - GI History GERD: no Hx Gastrointestinal Disorders: No - Other Health History Other Health History: No teeth - Chronic Pain History Chronic Pain: Yes - Surgical History Prior Surgeries: cyst removal ANE Review of Systems Review of systems is: negative Review of Systems: - Exercise capacity Exercise capacity: <4 METS ANE Patient History - Allergies Allergies/Adverse Reactions: Penicillins Allergy (Verified 08/04/18 14:11) Other-Enter Comments - Home Medications Home medications: home medication list seen and reviewed Home Medications: Naproxen Sodium [Aleve 220 MG (*)] 220 mg PO BID PRN 02/16/17 [Last Taken Unknown] Vitamin B Complex [Vitamin B Complex (OTC)] 1 each PO DAILY #0 05/21/17 [Last Taken Unknown] Multivitamins [Multivitamin (*)] 1 each PO DAILY 08/04/18 [Last Taken Unknown] Omeprazole 40 mg PO DAILY 08/04/18 [Last Taken 08/04/18] - NPO status NPO Status: no food or drink >8 hours NPO Since - Liquids (Date): 08/05/18 NPO Since - Liquids (Time): 00:00 NPO Since - Solids (Date): 08/05/18 NPO Since - Solids (Time): 00:00 - Anes Hx Anes Hx: no prior problems - Smoking Hx Smoking Status: Former smoker - Alcohol Use Alcohol Use: Heavy - Family Anes Hx Family Anes Hx: none Family Hx Anesthesia Complications: None ANE Labs/Vital Signs - Labs Result Diagrams: 08/05/18 05:08 08/05/18 05:08 - Vital Signs Blood Pressure: 119/63 Heart Rate: 81 Respiratory Rate: 16 O2 Sat (%): 97 Height: 180.34 cm Weight: 81.647 kg ANE Physical Exam - Airway Neck exam: FROM Mallampati Score: Class 2 Mouth exam: normal dental/mouth exam - Pulmonary Pulmonary: no respiratory distress, clear to auscultation - Cardiovascular Cardiovascular: regular rate and rhythym, no murmur, rub, or gallop - ASA Status ASA Status: III ANE Anesthesia Plan Anesthesia Plan: general endotracheal anesthesia
[2018-08-05] MEDS ORDERED: LR 1,000 ML IV ONE (15:31)
[2018-08-05] MEDS ORDERED: MIDAZOLAM 2 MG/2 ML VIAL IVP ONE (15:34)
--- NOTE | 2018-08-05 15:37 | ASMTCMCOM ---
CM Note CM Note Notes: Pts case discussed w/ Dr. Markham. Pt is a 73 y/o man admitted for left hip pain after a fall. CM attempted to meet w/ pt but he had already gone to surgery. Pt has a hx of etoh. Pt drinks 4 bottles of wine nightly. Pt will need a CAGE. Therapies are pending and awaiting recommendations. Needs are TBD at this time. CM to follow. Plan: TBD Date Signed: 08/05/2018 03:36 PM Electronically Signed By:ZULEYMA Chahal
[2018-08-05] MEDS ORDERED: CEFAZOLIN 2 GM/DEXTROSE/100 ML BAG IV ONE (15:49)
[2018-08-05] MEDS ORDERED: CLINDAMYCIN 900 MG/DEXTROSE/50 ML BAG IV ONE (15:49)
[2018-08-05] MEDS ORDERED: PROPOFOL 200 MG/20 ML VIAL ONE (15:53)
[2018-08-05] MEDS ORDERED: LIDOCAINE 2% 2 ML INJ ONE (15:53)
[2018-08-05] MEDS ORDERED: ROCURONIUM 50 MG/5 ML VIAL ONE (15:53)
[2018-08-05] MEDS ORDERED: fentaNYL 250 MCG/5 ML INJ ONE (15:53)
[2018-08-05] MEDS ORDERED: BUPIVACAINE/EPI 0.5% 30 ML SDV ONE ×2 (15:56→16:10)
--- NOTE | 2018-08-05 16:16 | HOSPPROG ---
Hospitalist Progress Note Assessment/Plan: 73 yo male with h/o alcohol dependence and peripheral neuropathy, admitted with left hip fracture after GLF. Fracture, intertrochanteric, left femur (Acute) - comminuted, displaced. Ortho consulted and plan for surgical intervention today -pain control -PT/OT when weight bearing status clear Peripheral neuropathy - likely 2/2 etoh, ambulates with walker at baseline -could trial low dose gabapentin, defer for now to avoid side effects charles- operatively Etoh dependence - drinks 3-4 bottles per day, does not plan to quit, INR normal , AST > ALT -started on wine TID per patient preference as well as CIWA for now-- monitoring for sedation -mvi, folate, thiamine -PT/OT and speech/cog eval Pancytopenia - likely BM suppression 2/2 etoh, no e/o bleeding -trend Hyponatremia - likely volume depletion -improved slightly with IVF, continue to trend AGMA - likely alcoholic ketoacidosis -resolved Full code DVT PPLX - SCD's for now, defer pharm as unclear when he'll go to the OR, start Lovenox post-op when cleared by ortho Dispo - inpt, anticipate >48 hrs hospitalization for management of acute hip fracture requiring surgery Subjective: no significant overnight events, patient notes pain in his hip remains severe when he needs to transfer or adjust position, he denies significant withdrawal sxs Objective: Vital Signs Temp Pulse Resp BP Pulse Ox 37.3 C 77 16 138/70 H 98 08/05/18 15:55 08/05/18 15:55 08/05/18 15:55 08/05/18 15:55 08/05/18 15:55 Laboratory Results 08/05/18 05:08 08/05/18 05:08 08/04/18 08/05/18 08/06/18 05:59 05:59 05:59 Intake Total 1150 Output Total 500 Balance 650 PT 13.8 SEC (12.0-15.0) 08/04/18 14:10 INR 1.10 (0.83-1.16) 08/04/18 14:10 awake alert uncomfortable anicteric op clear rrr no mrg cta b to ant exam soft nt nd no cce warm dry well perfused --exam limited to visible extremities oriented appropriate ICD10 Worksheet Patient Problems: Problems Problem Status Onset Fracture, intertrochanteric, left femur Acute Compression fracture of L1 lumbar vertebra Acute Syncope Acute Weakness Acute Dehydration Acute UTI (urinary tract infection) Acute Altered mental status Acute
[2018-08-05] MEDS ORDERED: ONDANSETRON 4 MG/2 ML VIAL ONE (16:47)
[2018-08-05] MEDS ORDERED: NEOSTIGMINE METHYLSULFATE 10 MG/10 ML MDV ONE (17:33)
[2018-08-05] MEDS ORDERED: GLYCOPYRROLATE 0.2 MG/1 ML VIAL ONE ×2 (17:33)
[2018-08-05] MEDS ORDERED: HYDROmorphONE/DILAUDID 1 MG/ML INJ IVP PRN (17:35)
[2018-08-05] MEDS ORDERED: LR 500 ML IV PRN (17:35)
[2018-08-05] MEDS ORDERED: DIAZEPAM 10 MG/2 ML SYR IVP PRN (17:35)
[2018-08-05] MEDS ORDERED: PROMETHAZINE HCL 25 MG/ML INJ IVP PRN (17:35)
[2018-08-05] MEDS ORDERED: NALOXONE HCL 0.4 MG/ML INJ IVP PRN (17:35)
[2018-08-05] MEDS ORDERED: PHENYLEPHRINE HCL 100 MCG/ML SYR IVP PRN (17:35)
[2018-08-05] MEDS ORDERED: fentaNYL 100 MCG/2 ML INJ IVP PRN (17:35)
--- NOTE | 2018-08-05 17:39 | POSTANESTH ---
Post Anesthetic Evaluation Cardiovascular Status: Normal, Stable Respiratory Status: Normal, Stable Level of Consciousness/Mental Status: Can Participate in Eval Pain Control: Adequate, Prn Tx Ordered Nausea/Vomiting Control: Adequate, Prn Tx Ordered Complications Possibly Related to Anesthesia: None Noted
--- NOTE | 2018-08-05 17:50 | POSTOPPROG ---
Post Op Note Date of Operation: 08/05/18 Surgeon: Juve Brothers Special Technical Operations Officer: leigh neal Anesthesia: GET(General Endotracheal) Pre-op Diagnosis: intertrochanteric fx left Post-op Diagnosis: same Procedure: IMN LT hip Findings: displaced IT fx Inf/Abcess present in the surg proc area at time of surgery?: No EBL: 100-500 (20ml) Complications: one
[2018-08-05] MEDS ORDERED: OXYCODONE/APAP 5/325 TAB PO PRN (17:52)
[2018-08-05] MEDS ORDERED: D5W 1/2 NS W/ 20 KCl/L 1,000 ML IV SCH (18:00)
[2018-08-05] MEDS ORDERED: HYDROmorphONE/DILAUDID 1 MG/ML INJ ONE (18:03)
[2018-08-06] MEDS: ceFAZolin 2 GM/DEXTROSE 100 ML IV SCH ×2 (02:18→10:12)
[2018-08-06] MEDS: ACETAMINOPHEN 500 MG TAB PO SCH ×3 (05:50→22:39)
[2018-08-06] MEDS: oxyCODONE IR 5 MG TAB PO PRN (05:51)
[2018-08-06] MEDS ORDERED: ENOXAPARIN 30 MG/0.3 ML SYR SC SCH (09:00)
--- NOTE | 2018-08-06 09:55 | GOP ---
[f rep st] OPERATIVE REPORT DATE OF OPERATION: 08/05/2018 SURGEON: Juve Brothers MD ADVERTISING TEACHER: Braden Thakur ANESTHESIA: General. ANESTHESIOLOGIST: Dr. Emanuel. PREOPERATIVE DIAGNOSIS: Intertrochanteric hip fracture, left. POSTOPERATIVE DIAGNOSIS: Same. PROCEDURE PERFORMED: Intramedullary nailing, left hip. FINDINGS: INDICATIONS: George is a 73-year-old male who fell at his assisted living yesterday afternoon and sust ained an intertrochanteric hip fracture and was admitted to the hospitalist and brought to the operat ing room today for definitive fixation of the fracture. DESCRIPTION OF PROCEDURE: After appropriate informed consent was obtained, patient was taken to the operating room, placed supine on the operating table. Time-out was performed. Patient was identifie d. Correct site was identified, matched with the radiographs available in the room. He received 2 g Ancef preoperatively. Following general endotracheal tube anesthesia, he was positioned on the [facility] ture table with the left lower extremity in the traction boot, right lower extremity supported in a w ell-padded well leg constantino. I was able to gently traction, internally rotate the fracture, and reduc e it satisfactorily. We then made a small tanesha incision and introduced the guidewire into the tip of the greater trochanter and down the shaft of the femur. Using our starting reamer, we entered the f emoral canal and then placed our 12 x 170 mm nail. Using an external jig, we made another small tanesha incision and introduced a guidewire into the head and neck, confirmed its position with AP lateral f luoroscopic imaging, and then put the spiral blade screw in place. I placed 1 distal locking screw a gain using external jig, removed the jig. Final x-rays were obtained, which showed satisfactory redu ction of the fracture and positioning of the hardware wounds were irrigated. Deep layer was closed w ith 0 Vicryl, superficial layers closed 2 Vicryl, skin closed with justin. I instilled 30 mL of 0.5 % Marcaine with epinephrine incision. A sterile dressing was applied. The patient was transferred f rom the fracture table back to the hospital bed, taken to the recovery room in satisfactory condition . There were no immediate intraoperative complications. Braden Thakur's assistance was required throughout the entire case. IMPLANTS USED: Synthes 12 x 170 mm short TFN nail. COMPLICATIONS: None. DRAINS: None. /[id number]/MODL
[2018-08-06] MEDS: PANTOPRAZOLE SODIUM 40 MG TAB PO SCH (10:13)
[2018-08-06] MEDS: THIAMINE HCL 100 MG TAB PO SCH (10:13)
[2018-08-06] MEDS: FOLIC ACID 1 MG TAB PO SCH (10:13)
[2018-08-06] MEDS: MULTIVITAMINS 1 EACH TAB PO SCH (10:13)
--- NOTE | 2018-08-06 10:19 | SOAPPROG ---
SOAP Progress Note Assessment/Plan: Assessment: Left hip intertrochanteric fracture s/p left hip IM nail - POD 1 Dr. Brothers Plan: Continue d/c planning - SNF recommended TTWBing x 6 weeks on LLE Continue oral pain medication Continue VTE ppx - lovenox 30 mg BID, SCDs Continue PT efforts Subjective: Patient states his left hip is quite sore and minimal movement worsens the pain. He denies SOB, CP, fever, chills Objective: Vital Signs Temp Pulse Resp BP Pulse Ox 36.6 C 85 16 117/69 97 08/06/18 07:40 08/06/18 07:40 08/06/18 07:40 08/06/18 07:40 08/06/18 07:40 Laboratory Results 08/06/18 04:40 08/06/18 04:40 08/05/18 08/06/18 08/07/18 05:59 05:59 05:59 Intake Total 1150 1915 120 Output Total 500 600 Balance 650 1315 120 PT 13.8 SEC (12.0-15.0) 08/04/18 14:10 INR 1.10 (0.83-1.16) 08/04/18 14:10 Patient lying in bed, no acute distress but he does appear a bit uncomfortable secondary to pain. Diffuse ecchymosis about the left lower extremity. Surgical wound dressings in place along the lateral aspect of the left hip and thigh. Mild blood noted on dressings. Lower leg compartments are soft and nontender. He can actively DF and PF the left foot and great toes. Grossly NVI distally. ICD10 Worksheet Patient Problems: Problems Problem Status Onset Fracture, intertrochanteric, left femur Acute Altered mental status Acute Compression fracture of L1 lumbar vertebra Acute Dehydration Acute Syncope Acute UTI (urinary tract infection) Acute Weakness Acute
[2018-08-06] MEDS: traMADol 50 MG TAB PO PRN ×2 (10:30→22:40)
--- NOTE | 2018-08-06 10:52 | HOSPPROG ---
Hospitalist Progress Note Assessment/Plan: 73 yo male with h/o alcohol dependence and peripheral neuropathy, admitted with left hip fracture after GLF. 1st encounter chart reviewed. * acute left intertrochanteric femur fracture -status post left hip IM nail * acute blood loss anemia -will transfuse a unit of prbc -has some bloody drainage at dressing site * peripheral neuropathy -most likely secondary to alcohol use -consider low-dose gabapentin * alcohol abuse -drinks 3-4 bottles a day and is not planning to quit, INR stable -started on wine three times daily, appears to be tremulous during my interview , will add low dose scheduled librium -multivitamin, folate, thiamine * pancytopenia * hyponatremia -recheck in a.m. * anion gap metabolic acidosis -most likely secondary to alcohol acute & dehydration * gross hematuria as well as pyuria -poss from sanchez placement -will recheck in a few days *plan: hold Lovenox in the setting of blood loss and low platelets, will leave sanchez in overnight to monitor intake and output, he isn't drinking or eating much. Subjective: Watson said he is fine but has pain with getting out of bed. Objective: Vital Signs Temp Pulse Resp BP Pulse Ox 36.6 C 85 16 117/69 97 08/06/18 07:40 08/06/18 07:40 08/06/18 07:40 08/06/18 07:40 08/06/18 07:40 Laboratory Results 08/06/18 04:40 08/06/18 04:40 08/05/18 08/06/18 08/07/18 05:59 05:59 05:59 Intake Total 1150 1915 120 Output Total 500 600 Balance 650 1315 120 PT 13.8 SEC (12.0-15.0) 08/04/18 14:10 INR 1.10 (0.83-1.16) 08/04/18 14:10 - Physical Exam Constitutional: chronically ill appearing, uncomfortable Eyes: PERRL Ears, Nose, Mouth, Throat: hearing normal Cardiovascular: regular rate and rhythym Respiratory: no respiratory distress Genitourinary: sanchez in urethra Skin: warm, other (left hip w swelling, some oozing noted at the dressing site) , No normal color (pale) Musculoskeletal: generalized weakness Psychiatric: interacting appropriately, anxious, poor insight, poor memory ICD10 Worksheet Patient Problems: Problems Problem Status Onset Fracture, intertrochanteric, left femur Acute Altered mental status Acute Compression fracture of L1 lumbar vertebra Acute Dehydration Acute Syncope Acute UTI (urinary tract infection) Acute Weakness Acute
[2018-08-06] MEDS ORDERED: BISACODYL 10 MG SUPP PR PRN (11:07)
[2018-08-06] MEDS ORDERED: LACTULOSE 20 GM/30 ML UDCUP PO PRN (11:07)
[2018-08-06] MEDS ORDERED: POLYETHYLENE GLYCOL 3350 17 GM PKT PO PRN (11:07)
[2018-08-06] MEDS ORDERED: MAGNESIUM HYDROXIDE 30 ML UDCUP PO PRN (11:07)
[2018-08-06] MEDS ORDERED: ACETAMINOPHEN 325 MG TAB PO ONE (11:07)
[2018-08-06] MEDS: WHITE WINE 120 ML BOTTLE PO SCH ×3 (11:33→22:43)
--- NOTE | 2018-08-06 16:15 | ASMTCMCOM ---
CM Note CM Note Notes: Spoke with pt in the room, and pt requested I speak with his niece Emma. Message was left for Emma. PT and OT are both recommending SNF, as pt had hip surgery yesterday and is receiving a unit of blood today. Referrals sent to [facility], [facility] and [facility]. Pt has been to [facility] in the past, but wanted niece to choose facility. Pt to discharge in 2 or more days. CM inquired about ETOH use, and pt stated he thought he would cut back, but denied that he drinks 3 - 4 bottles of wine a night. He declined ETOH recovery resources. CM to follow. D/C plan: SNF pending family choice. Date Signed: 08/06/2018 04:14 PM Electronically Signed By:Becca Jay
[2018-08-06] MEDS: SENNOSIDES/DOCUSATE SODIUM TAB PO SCH (22:38)
[2018-08-07 05:38] LABS: INR 1.25 (0.83-1.16); PROTIME(PATIENT) 15.2 SEC (12.0-15.0)
[2018-08-07] MEDS: ACETAMINOPHEN 500 MG TAB PO SCH ×3 (05:57→22:48)
--- NOTE | 2018-08-07 07:00 | SOAPPROG ---
DOMINICK Progress Note Assessment/Plan: Assessment: Plan: 08/07/18 06:58 POD#2 IMN LT hip may need to transfuse 2nd unit PRBC's low plts will hold Lovenox SNF TTWB x 6 weeks Subjective: pain a little better today Objective: dressing with mod bloody drainage leg lengths equal calf soft 5/5 df/pf Vital Signs Temp Pulse Resp BP Pulse Ox 37.0 C 82 16 111/59 L 96 08/07/18 03:53 08/07/18 03:53 08/07/18 03:53 08/07/18 03:53 08/07/18 03:53 Laboratory Results 08/07/18 05:06 08/07/18 05:06 08/06/18 08/07/18 08/08/18 05:59 05:59 05:59 Intake Total 1915 2215 Output Total 600 900 Balance 1315 1315 PT 15.2 SEC (12.0-15.0) H 08/07/18 05:06 INR 1.25 (0.83-1.16) H 08/07/18 05:06 ICD10 Worksheet Patient Problems: Problems Problem Status Onset Fracture, intertrochanteric, left femur Acute Altered mental status Acute Compression fracture of L1 lumbar vertebra Acute Dehydration Acute Syncope Acute UTI (urinary tract infection) Acute Weakness Acute
[2018-08-07] MEDS ORDERED: ACETAMINOPHEN 325 MG TAB PO ONE (07:47)
--- NOTE | 2018-08-07 09:24 | HOSPPROG ---
Hospitalist Progress Note Assessment/Plan: 73 yo male with h/o alcohol dependence and peripheral neuropathy, admitted with left hip fracture after GLF. 1st encounter chart reviewed. * acute left intertrochanteric femur fracture -status post left hip IM nail * acute blood loss anemia -was transfused a unit of prbc yesterday without improvement, will give another unit now -left leg is quite swollen -has some bloody drainage at dressing site -patient said he has a hx of some type of gi bleed, not clear if has had varices ? -will add IV bid Protonix -reviewed w GI my concerns and he may need an EGD-will see how he responds to the transfusion -heme stools x 3 * peripheral neuropathy -most likely secondary to alcohol use -consider low-dose gabapentin * alcohol abuse -drinks 3-4 bottles a day and is not planning to quit, INR elevated -started on wine three times daily, scheduled low dose Librium has helped significantly -multivitamin, folate, thiamine * pancytopenia -worse today, platelets trending down, holding Lovenox * hyponatremia -improving * anion gap metabolic acidosis -most likely secondary to alcohol acute & dehydration * gross hematuria as well as pyuria -poss from sanchez placement -will recheck in a few days *plan: hold Lovenox in the setting of blood loss and low platelets, reviewed his care w GI, if blood counts not improving, will have a low threshold for GI to see. Subjective: Watson said pain is a bit better in his left hip today. Objective: Vital Signs Temp Pulse Resp BP Pulse Ox 36.9 C 68 16 100/73 96 08/07/18 07:51 08/07/18 07:51 08/07/18 07:51 08/07/18 07:51 08/07/18 07:51 Laboratory Results 08/07/18 05:06 08/07/18 05:06 08/06/18 08/07/18 08/08/18 05:59 05:59 05:59 Intake Total 1915 2215 Output Total 600 900 Balance 1315 1315 PT 15.2 SEC (12.0-15.0) H 08/07/18 05:06 INR 1.25 (0.83-1.16) H 08/07/18 05:06 - Physical Exam Constitutional: appears nourished, not in pain, chronically ill appearing Eyes: PERRL Ears, Nose, Mouth, Throat: hearing normal Cardiovascular: regular rate and rhythym Respiratory: no respiratory distress Gastrointestinal: normoactive bowel sounds Skin: warm, rash (left hip and upper thigh w swelling, some bloody drainage ) Musculoskeletal: generalized weakness Neurologic: AAOx3 Psychiatric: interacting appropriately ICD10 Worksheet Patient Problems: Problems Problem Status Onset Fracture, intertrochanteric, left femur Acute Altered mental status Acute Compression fracture of L1 lumbar vertebra Acute Dehydration Acute Syncope Acute UTI (urinary tract infection) Acute Weakness Acute
[2018-08-07] MEDS ORDERED: PANTOPRAZOLE SODIUM 40 MG VIAL IVP SCH ×2 (10:00→21:00)
[2018-08-07] MEDS: PANTOPRAZOLE SODIUM 40 MG VIAL IVP SCH ×2 (10:02→20:01)
[2018-08-07] MEDS: SENNOSIDES/DOCUSATE SODIUM TAB PO SCH ×2 (10:03→20:01)
[2018-08-07] MEDS: MULTIVITAMINS 1 EACH TAB PO SCH (10:03)
[2018-08-07] MEDS: THIAMINE HCL 100 MG TAB PO SCH (10:03)
[2018-08-07] MEDS: PANTOPRAZOLE SODIUM 40 MG TAB PO SCH (10:03)
[2018-08-07] MEDS: FOLIC ACID 1 MG TAB PO SCH (10:03)
[2018-08-07] MEDS: WHITE WINE 120 ML BOTTLE PO SCH ×3 (10:04→23:06)
[2018-08-07] MEDS: traMADol 50 MG TAB PO PRN (21:00)
[2018-08-08] MEDS: ACETAMINOPHEN 500 MG TAB PO SCH ×3 (06:01→22:53)
--- NOTE | 2018-08-08 08:36 | SOAPPROG ---
DOMINICK Progress Note Assessment/Plan: Assessment: Plan: 08/07/18 06:58 POD#2 IMN LT hip may need to transfuse 2nd unit PRBC's low plts will hold Lovenox SNF TTWB x 6 weeks 08/08/18 08:36 S/P IMN LT hip poor bone quality will need SNF TTWB x 6 weeks Subjective: feeling a little better still having difficulty with mobility Objective: no additional blood on dressing calf soft leg lengths equal Vital Signs Temp Pulse Resp BP Pulse Ox 36.9 C 70 16 129/76 H 98 08/08/18 07:59 08/08/18 07:59 08/08/18 07:59 08/08/18 07:59 08/08/18 07:59 Laboratory Results 08/08/18 05:00 08/08/18 05:00 08/07/18 08/08/18 08/09/18 05:59 05:59 05:59 Intake Total 2215 2041 Output Total 900 450 Balance 1315 1591 PT 15.2 SEC (12.0-15.0) H 08/07/18 05:06 INR 1.25 (0.83-1.16) H 08/07/18 05:06 ICD10 Worksheet Patient Problems: Problems Problem Status Onset Fracture, intertrochanteric, left femur Acute Altered mental status Acute Compression fracture of L1 lumbar vertebra Acute Dehydration Acute Syncope Acute UTI (urinary tract infection) Acute Weakness Acute
--- NOTE | 2018-08-08 09:24 | HOSPPROG ---
Hospitalist Progress Note Assessment/Plan: 73 yo male with h/o alcohol dependence and peripheral neuropathy, admitted with left hip fracture after GLF. * acute left intertrochanteric femur fracture -status post left hip IM nail -TTWB x 6 weeks * acute blood loss anemia -s/p 2 units of prbc -still low but improved (will not transfuse at this time due to much improved bp ) -getting stools heme x 3 -hx of a gi bleed * peripheral neuropathy -most likely secondary to alcohol use -consider low-dose gabapentin * alcohol abuse -drinks 3-4 bottles a day and is not planning to quit, INR elevated -decreased wine to BID, scheduled low dose Librium has helped significantly ( also reduced this dose to bid) -multivitamin, folate, thiamine * pancytopenia -platelets low, hold LMWH * hyponatremia -improving * anion gap metabolic acidosis -most likely secondary to alcohol acute & dehydration * gross hematuria as well as pyuria -poss from sanchez placement *plan: check labs in a.m., poss dc tomorrow Subjective: Watson is feeling overall better today, very nervous about getting oob. Objective: Vital Signs Temp Pulse Resp BP Pulse Ox 36.9 C 70 16 129/76 H 98 08/08/18 07:59 08/08/18 07:59 08/08/18 07:59 08/08/18 07:59 08/08/18 07:59 Laboratory Results 08/08/18 05:00 08/08/18 05:00 08/07/18 08/08/18 08/09/18 05:59 05:59 05:59 Intake Total 2215 2041 Output Total 900 450 Balance 1315 1591 PT 15.2 SEC (12.0-15.0) H 08/07/18 05:06 INR 1.25 (0.83-1.16) H 08/07/18 05:06 - Physical Exam Constitutional: appears nourished, chronically ill appearing, uncomfortable Eyes: PERRL Ears, Nose, Mouth, Throat: hearing normal Cardiovascular: regular rate and rhythym Respiratory: no respiratory distress Gastrointestinal: normoactive bowel sounds Skin: warm, other (left hip w swelling, removed dressings from his hip, no further oozing, has some dried blood) Neurologic: AAOx3 Psychiatric: interacting appropriately, not encephalopathic ICD10 Worksheet Patient Problems: Problems Problem Status Onset Fracture, intertrochanteric, left femur Acute Altered mental status Acute Compression fracture of L1 lumbar vertebra Acute Dehydration Acute Syncope Acute UTI (urinary tract infection) Acute Weakness Acute
[2018-08-08] MEDS: SENNOSIDES/DOCUSATE SODIUM TAB PO SCH ×2 (10:00→20:11)
[2018-08-08] MEDS: MULTIVITAMINS 1 EACH TAB PO SCH (10:00)
[2018-08-08] MEDS: FOLIC ACID 1 MG TAB PO SCH (10:00)
[2018-08-08] MEDS: PANTOPRAZOLE SODIUM 40 MG VIAL IVP SCH ×2 (10:01→20:11)
[2018-08-08] MEDS: THIAMINE HCL 100 MG TAB PO SCH (10:01)
[2018-08-08] MEDS: WHITE WINE 120 ML BOTTLE PO SCH ×3 (10:12→18:35)
--- NOTE | 2018-08-08 10:48 | ASMTCMCOM ---
CM Note CM Note Notes: Pt chooses [facility] with completed on-site of pt today. can accept pt and will specifically need doctor's order for the ETOH to be administered at . Pt likely to d/c tomorrow. D/c [facility] of care: [facility] Date Signed: 08/08/2018 10:47 AM Electronically Signed By:EVERETT Bauer
[2018-08-08] MEDS: traMADol 50 MG TAB PO PRN (15:50)
[2018-08-09] MEDS: ACETAMINOPHEN 500 MG TAB PO SCH ×2 (06:12→14:10)
--- NOTE | 2018-08-09 08:11 | HOSPPROG ---
Hospitalist Progress Note Assessment/Plan: 73 yo male with h/o alcohol dependence and peripheral neuropathy, admitted with left hip fracture after GLF. * acute left intertrochanteric femur fracture -status post left hip IM nail -TTWB x 6 weeks * acute blood loss anemia -s/p 2 units of prbc -still low but improved (will not transfuse at this time due to much improved bp ) -negative heme stool * peripheral neuropathy -most likely secondary to alcohol use * alcohol abuse -drinks 3-4 bottles a day and is not planning to quit, INR elevated -decreased wine to BID, scheduled low dose Librium has helped significantly -multivitamin, folate, thiamine * pancytopenia -platelets low, hold LMWH * hyponatremia -improving * anion gap metabolic acidosis -most likely secondary to alcohol acute & dehydration * gross hematuria as well as pyuria -poss from sanchez placement *plan: dc today to SNF Subjective: Watson is feeling well today, no complaints. Objective: Vital Signs Temp Pulse Resp BP Pulse Ox 36.9 C 68 17 118/78 100 08/09/18 07:21 08/09/18 07:21 08/09/18 07:21 08/09/18 07:21 08/09/18 07:21 Laboratory Results 08/09/18 04:27 08/08/18 05:00 08/08/18 08/09/18 08/10/18 05:59 05:59 05:59 Intake Total 2041 700 Output Total 450 Balance 1591 700 PT 15.2 SEC (12.0-15.0) H 08/07/18 05:06 INR 1.25 (0.83-1.16) H 08/07/18 05:06 - Physical Exam Constitutional: no apparent distress, not in pain, chronically ill appearing Eyes: PERRL Ears, Nose, Mouth, Throat: hearing normal Cardiovascular: regular rate and rhythym Respiratory: no respiratory distress Gastrointestinal: normoactive bowel sounds Skin: warm, other (left hip and upper thigh w significant swelling) Musculoskeletal: generalized weakness Neurologic: AAOx3 Psychiatric: interacting appropriately ICD10 Worksheet Patient Problems: Problems Problem Status Onset Fracture, intertrochanteric, left femur Acute Altered mental status Acute Compression fracture of L1 lumbar vertebra Acute Dehydration Acute Syncope Acute UTI (urinary tract infection) Acute Weakness Acute
[2018-08-09] MEDS: THIAMINE HCL 100 MG TAB PO SCH (08:31)
[2018-08-09] MEDS: SENNOSIDES/DOCUSATE SODIUM TAB PO SCH (08:31)
[2018-08-09] MEDS: PANTOPRAZOLE SODIUM 40 MG VIAL IVP SCH (08:31)
[2018-08-09] MEDS: MULTIVITAMINS 1 EACH TAB PO SCH (08:31)
[2018-08-09] MEDS: FOLIC ACID 1 MG TAB PO SCH (08:31)
--- NOTE | 2018-08-09 09:13 | PDIAF ---
- Diagnosis Diagnosis: l intertrochanteric hip fx s/p IM nail, ABLA, alcohol use Code Status: Full Code - Medication Management Discharge Medications: electronically signed and located in the Home Medication List. - Orders Services needed: Physical Therapy, Occupational Therapy Isolation Type: None Diet Recommendation: no restrictions on diet, other (wine w lunch and dinner) Diet Texture: Regular Texture Diet Additional Instructions: TTWB x 6weeks start Lovenox on 08/10/18 if platelet count remains stable continue Librium bid and then wean over the next week to daily and then stop recommending a glass of wine with lunch and dinner ice TID to left hip make an appt to see Dr Brothers in 2 weeks you had blood in your urine, get a repeat urinalysis in 2 weeks, if cont to have blood you need to see a urologist - Labs/Radiology BMP Date: 08/10/18 HCT/HGB Date: 08/10/18 (q 3 days till stable) UA Date: 08/23/18 Other Lab Name, Date and Time: platelet count w hgb/hgt - Follow Up Care Current Providers and Referrals: Juve Brothers MD [Medical Doctor] - Patient,NotPresent [Unknown] - As per Instructions
--- NOTE | 2018-08-09 11:49 | GDS ---
[f rep st] DISCHARGE SUMMARY DISCHARGE DIAGNOSES: 1. Acute left intertrochanteric hip femur fracture. 2. Acute blood loss anemia. 3. Peripheral neuropathy. 4. Alcohol abuse. 5. Pancytopenia. 6. Hyponatremia. 7. Anion gap metabolic acidosis. 8. Gross hematuria, as well as pyuria. CONSULTATION: Dr. Juve Brothers. HISTORY OF PRESENT ILLNESS: Briefly, Mr. Fuchs is a 73-year-old gentleman with alcoholism and fall, who presented to the emergency room with left hip pain after a ground level fall. He thinks his walker bumped in the door, caused him to lose his balance, falling onto his left hip. His niece witnessed the fall. He also has a history of peripheral neuropathy. He has had falls in the past, requiring a alf facility. He drinks approximately 3-4 bottles of white wine a day. He has been drinking heavily after retiring a few years ago. It was noted in the emergency room he had a comminuted displaced hip fracture. He was seen and evaluated by Dr. Brothers and subsequently had surgery. His hospital stay was complicated with low blood counts. He was given 2 units of packed red blood cells. Lovenox has been placed on hold due to low platelet counts. They have started to come up today. We will have the alf facility re-implement Lovenox tomorrow. He has also been given wine with meals. He has not had any withdrawals. He will be discharged to the alf facility. HOSPITAL COURSE: 1. Acute left intertrochanteric femur fracture. He is status post left hip IM nail. He will be touch toe weightbearing for 6 weeks. 2. Acute blood loss anemia. He is now stabilized. He is status post 2 units of packed red blood cells. He has a negative heme stool. 3. Peripheral neuropathy secondary to alcohol use. 4. Alcohol abuse. He has done quite well with decreasing his wine to twice a day. He is also on Librium twice a day. Recommended that the rehab facility wean off the thiamine. He is also on multivitamin, folate, and thiamine. 5. Pancytopenia. His platelets have been low throughout his stay. They finally have improved today. 6. Hyponatremia, due to his alcohol use, improving. 7. Anion gap metabolic acidosis, secondary to alcohol use and dehydration. 8. Gross hematuria. This could be from the [place] placement. Recheck urinalysis checked in 2 weeks. DISCHARGE CONDITION: Stable. Blood pressure is 118/78, heart rate is 68, respiratory rate is 17, O2 saturation on 3 L are 100%, temperature is 36.9 Celsius. MEDICATIONS AT DISCHARGE: Please see the EMR. DISCHARGE INSTRUCTIONS: 1. Touch toe weightbearing x6 weeks. 2. Start Lovenox on August 10 if his platelet count remains stable. 3. Continue Librium then wean over the next week to daily and then stop. 4. Recommending a glass of wine with lunch and dinner. 5. To see Dr. Brothers in 2 weeks. 6. To get a repeat urinalysis. Greater than 30 minutes discharging and coordinating the patient's care. /[id number]/MODL MTDD
[2018-08-09 12:07] VITALS: BP 120/74
[2018-08-09] MEDS: WHITE WINE 120 ML BOTTLE PO SCH (13:09)
--- NOTE | 2018-08-09 14:03 | ASMTLACE ---
ASHLEE Length of stay for Answers: 4-6 days current admission Acuity / Level of Answers: Yes Care: Did the patient have an inpatient admission? Comorbidities - select Answers: History of falls all that apply Opioid dependence / Chronic pain # of Emergency department Answers: 1-2 visits in the last 6 months Social determinants Answers: History of substance abuse (ETOH, street drugs, prescription drugs, etc.) Score: 18 Date Signed: 08/09/2018 02:02 PM Electronically Signed By:Sylvia Liriano RN
[2018-08-09] MEDS: traMADol 50 MG TAB PO PRN (14:10)
--- NOTE | 2018-08-09 18:30 | ASMTDCNOTE ---
Case Management Discharge Discharge Order Complete? Answers: Yes Patient to Obtain Answers: Other Notes: via [facility] Medications Transportation Arranged Answers: Other Notes: [facility] wheelchair v an Transport will Pick (Date 08/09/2018 02:30 PM & Time) EMTALA Complete Answers: No Notes: N/A Case Management Transport Answers: Yes Notes: Facesheet printed Form Complete Faxed Final Orders Answers: Yes Notes: Discharge orders and paperwork sent via [employer]. Agency/Facility Transfer Answers: Yes Notes: Discharge orders and Report Printed & Faxed to paperwork sent via Receiving Agency [employer]. Family Notified Answers: Yes Notes: Pt's Emma mcbride notified by RN. Discharge Comments Notes: Spoke with BANG Hackett and Fatemeh Guadalupe NP. Pt to discharge to [facility] today. Call placed to Jose at [facility]. Per Jose, able to accept pt. Jose to provide wheelchair transport at 14:30. Discharge orders and paperwork sent via [employer]; confirmed receipt with Jose. BANG Hackett to provide update to Emma, pt's niece. Met with pt to discuss discharge plan. Pt in agreement with transfer. IM signed, copy placed in chart. Pt to follow up as directed. CM available for any further issues or concerns. Discharge Plan: [facility] Date Signed: 08/09/2018 06:28 PM Electronically Signed By:Sylvia Liriano RN
--- NOTE | 2018-08-09 18:32 | ASDISCHSUM ---
Discharge Information Plan Status:SNF Medically Cleared to Leave:08/09/2018 Discharge Date:08/09/2018 03:00 PM CM D/C Disposition:[facility] Facility ADT D/C Disposition:[facility] Facility Projected Discharge Date:08/07/2018 11:00 AM Transportation at D/C:Wheelchair Van Discharge Delay Reason: Follow-Up Date:08/07/2018 11:00 AM Discharge Slot:2 - 12:01 pm - 18:00 pm Final Diagnosis:Left hip femur fracture, acute blood loss anemia, peripheral neuropathy, alcohol abu se, hyponatremia, pancytopenia, gross hematuria, pyuria Placement Information Referral Type:*Senior Living/SNF Referral ID:[id number] Provider Name:[facility] Address 1:[address] Address 2: City:[place] Selection Factors:Patient/Family Choice State:[place] Patient Contact Information Contact Name:DEBBIE Relationship:Mary Kay Address: Work Phone: City: [place] Phone: State/Zip Code: Email: Financial Information Financial Class:Medicare Primary Plan Desc:MEDICARE INPATIENT Primary Plan Number:[id number] Secondary Plan Desc:NESS/NORBERTO SUPPLEMENT Secondary Plan Number:[id number] Assessment Information LACE LACE Length of stay for Answers: 4-6 days current admission Acuity / Level of Answers: Yes Care: Did the patient have an inpatient admission? Comorbidities - select Answers: History of falls all that apply Opioid dependence / Chronic pain # of Emergency department Answers: 1-2 visits in the last 6 months Social determinants Answers: History of substance abuse (ETOH, street drugs, prescription drugs, etc.) Score: 18 Date Signed: 08/09/2018 02:02 PM Electronically Signed By:Sylvia Liriano RN [facility] Progress Note CM Note CM Note Notes: Pts case discussed w/ Dr. Markham. Pt is a 73 y/o man admitted for left hip pain after a fall. CM attempted to meet w/ pt but he had already gone to surgery. Pt has a hx of etoh. Pt drinks 4 bottles of wine nightly. Pt will need a CAGE. Therapies are pending and awaiting recommendations. Needs are TBD at this time. CM to follow. Plan: TBD Date Signed: 08/05/2018 03:36 PM Electronically Signed By:ZULEYMA Chahal [facility] Progress Note CM Note CM Note Notes: Spoke with pt in the room, and pt requested I speak with his niece Emma. Message was left for mEma. PT and OT are both recommending SNF, as pt had hip surgery yesterday and is receiving a unit of blood today. Referrals sent to [facility], [facility] and [facility]. Pt has been to [facility] in the past, but wanted niece to choose facility. Pt to discharge in 2 or more days. CM inquired about ETOH use, and pt stated he thought he would cut back, but denied that he drinks 3 - 4 bottles of wine a night. He declined ETOH recovery resources. CM to follow. D/C plan: SNF pending family choice. Date Signed: 08/06/2018 04:14 PM Electronically Signed By:Becca Jay [facility] CM Progress Note CM Note CM Note Notes: Pt chooses [facility] Susan Jose with completed on-site of pt today. can accept pt and will specifically need doctor's order for the ETOH to be administered at . Pt likely to d/c tomorrow. D/c plan of care: [facility] Date Signed: 08/08/2018 10:47 AM Electronically Signed By:EVERETT Bauer Case Management Discharge Plan Note Case Management Discharge Discharge Order Complete? Answers: Yes Patient to Obtain Answers: Other Notes: via [facility] Medications Transportation Arranged Answers: Other Notes: [facility] wheelchair v an Transport will Pick (Date 08/09/2018 02:30 PM & Time) EMTALA Complete Answers: No Notes: N/A Case Management Transport Answers: Yes Notes: Facesheet printed Form Complete Faxed Final Orders Answers: Yes Notes: Discharge orders and paperwork sent via [employer]. Agency/Facility Transfer Answers: Yes Notes: Discharge orders and Report Printed & Faxed to paperwork sent via Receiving Agency [employer]. Family Notified Answers: Yes Notes: Pt's Emma mcbride notified by RN. Discharge Comments Notes: Spoke with BANG Hackett and Fatemeh Guadalupe NP. Pt to discharge to [facility] today. Call placed to Jose at [facility]. Per Jose, able to accept pt. Jose to provide wheelchair transport at 14:30. Discharge orders and paperwork sent via [employer]; confirmed receipt with Jose. BANG Hackett to provide update to Emma pt's niece. Met with pt to discuss discharge plan. Pt in agreement with transfer. IM signed, copy placed in chart. Pt to follow up as directed. CM available for any further issues or concerns. Discharge Plan: [facility] Date Signed: 08/09/2018 06:28 PM Electronically Signed By:Sylvia Liriano RN Intervention Information Intervention Type:*IM-Signed Date of Service:08/09/2018 06:31 PM Patient Type:Inpatient Staff Member:BANG Liriano, Sylvia Hours: Discipline:Sugar Cane Planter Severity: Comment:
== END 2018-08-09 15:00 | DRG 481 ==
LOC: EDUNIT# → F3N 16:01
PROVIDERS: ADMIT Hospitalist; ATTEND Internal Medicine
PROC: 0QS706Z Reposition Left Upper Femur with Intramedullary Internal Fixation Device, Open Approach (ICD-10-PCS; principal; 2018-08-05 16:00)
PROC: 30233N1 Transfusion of Nonautologous Red Blood Cells into Peripheral Vein, Percutaneous Approach (ICD-10-PCS; 2018-08-06)
DX: S72.142A Displaced intertrochanteric fracture of left femur, initial encounter for closed fracture (principal); W19.XXXA Unspecified fall, initial encounter; Y92.198 Other place in other specified residential institution as the place of occurrence of the external cause; D62 Acute posthemorrhagic anemia; E87.1 Hypo-osmolality and hyponatremia; D61.818 Other pancytopenia; E87.2 Acidosis; G62.0 Drug-induced polyneuropathy; F10.20 Alcohol dependence, uncomplicated; R31.9 Hematuria, unspecified; Z91.81 History of falling
CPT/HCPCS: 92523-GN; 97110-GP; 97162-GP; 97166-GO; 97530-GO; 97530-GP; 97535-GO; C1713; G0480; J0690; J1170; J1650; J2250; J2405; J2704; J3010; P9016